=== PATIENT | female | born 1965 ===

== ENCOUNTER 2017-01-31 10:07 | Inpatient (IN) | payer BC, MEDICAID ==
[2017-01-31 10:07] VITALS: BMI 30.1
--- NOTE | 2017-01-31 11:53 | C.PDOC ---
History Of Present Illness 51 y/o female, with history of DM, referred to the ER by PMD for evaluation of worsening cellulitis to abdominal wound. Patient reports she was prescribed Keflex and Bactrim by Dr. Espinosa last week, which she has been taking, without improvement She reports pain and swelling to area of wound (left lower abdomen) . Denies fever, chills, nausea, vomiting, diarrhea, rash, or other associated symptoms. Time Seen by Provider: 01/31/17 11:15 Chief Complaint (Nursing): Abnormal Skin Integrity History Per: Patient History/Exam Limitations: no limitations Onset/Duration Of Symptoms: Days Current Symptoms Are (Timing): Worse Location Of Injury: Left: Abdomen, Anterior: Abdomen Quality Of Symptoms: Painful, Swollen, Draining Recent travel outside of the [place]: No Past Medical History Reviewed: Historical Data, Nursing Documentation, Vital Signs Vital Signs: Last Vital Signs Temp 97.7 F 01/31/17 10:19 Pulse 88 01/31/17 16:29 Resp 18 01/31/17 16:29 BP 117/78 01/31/17 16:29 Pulse Ox 100 01/31/17 16:29 - Medical History PMH: Arthritis, Asthma, COPD, Diabetes, Gastritis, HTN, Hypercholesterolemia, Migraine Surgical History: Carotid Endarterectomy - [facility] Procedures DERMAL REGENERATIVE GRAFT (06/17/14) DETACHMENT AT LEFT 2ND TOE, HIGH, OPEN APPROACH (11/24/15) DILATION OF 2 COR ART WITH DRUG-ELUT INTRALUM, PERC APPROACH (02/03/15) EXCIS DEBRIDE OF WOUND, INFECT, OR BURN (03/09/14) FLUOROSCOPY OF MULT COR ART USING L OSM CONTRAST (02/03/15) FLUOROSCOPY OF RIGHT AND LEFT HEART USING L OSM CONTRAST (02/03/15) LOC EXC LES METATAR/TAR (06/17/14) MEASURE OF CARDIAC SAMPL & PRESSURE, L HEART, PERC APPROACH (02/03/15) NONEXCIS DEBRID OF WOUND, INFECT, OR BURN (06/28/14) OTHER SKIN & SUBQ I D (03/09/14) TOE AMPUTATION (06/28/14) VACCINATION NEC (06/28/14) Family History: States: Unknown Family Hx - Social History Hx Tobacco Use: No Hx Alcohol Use: No Hx Substance Use: No - Immunization History Hx Tetanus Toxoid Vaccination: No Hx Influenza Vaccination: No Hx Pneumococcal Vaccination: No Review Of Systems Except As Marked, All Systems Reviewed And Found Negative. Constitutional: Negative for: Fever, Chills Cardiovascular: Negative for: Chest Pain Respiratory: Negative for: Cough, Shortness of Breath, Wheezing Gastrointestinal: Negative for: Nausea, Vomiting, Abdominal Pain Skin: Positive for: Lesions (left lower abdomen) Physical Exam - Physical Exam Appears: Non-toxic, No Acute Distress Skin: Warm, Dry, Other (induratied, ulcerative wound with yellow exudate, + erythema to left lower abdomen, 3.0 cm. ) Head: Atraumatic, Normacephalic Oral Mucosa: Moist Chest: Symmetrical Cardiovascular: Rhythm Regular Respiratory: Normal Breath Sounds, No Rales, No Rhonchi, No Wheezing Gastrointestinal/Abdominal: Soft, No Tenderness, No Guarding, No Rebound, Other (see skin exam) Back: Normal Inspection Extremity: Normal ROM, Capillary Refill (< 2 sec. ) Neurological/Psych: Oriented x3, Normal Speech, Normal Cognition ED Course And Treatment - Laboratory Results Result Diagrams: 01/31/17 13:24 01/31/17 13:24 O2 Sat by Pulse Oximetry: 99 Progress Note: Labs, wound culture ordered. Treated with IV fluids and Vancomycin IV. Patient found to have UTI. Zosyn IV was added to the treatment regimen. Case was d/w Hospitalist who accepted patient to [facility]. Disposition - Disposition Disposition: HOSPITALIZED Disposition Time: 15:21 Condition: FAIR - Clinical Impression Clinical Impression: Abdominal wall cellulitis, UTI (urinary tract infection) Decision To Admit - Pt Status Changed To: Hospital Disposition Of: Inpatient - Admit Certification Admit to Inpatient:: After my assessment, the patient will require hospitalization for at least two midnights. This is because of the severity of symptoms shown, intensity of services needed, and/or the medical risk in this patient being treated as an outpatient. - InPatient: Physician Admission Certification: I certify that this patient requires 2 or more midnights of care for the following reason:: Pt will need more than 2 days of IV antibiotics - . Bed Request Type: Regular Admitting Physician: Zoie Mcdonald Patient Diagnosis: Abdominal wall cellulitis, UTI (urinary tract infection)
[2017-01-31] MEDS ORDERED: Sodium Chloride 0.9% 1,000 ML IV STA (11:54)
[2017-01-31] MEDS ORDERED: Vancomycin 1 GM 1 GM/250 ML BAG IV STA (12:00)
[2017-01-31] MEDS ORDERED: Vancomycin 1 GM 1 GM/250 ML BAG IVPB ONE (12:10)
[2017-01-31 13:28] LABS: BASO % 0.3 % (0.0-2.0); EOS % 0.3 % (0.0-4.0); HEMATOCRIT 38.3 % (34.0-47.0); LYMPH # 1.3 K/uL (1.0-4.3); LYMPH % 28.1 % (20.0-40.0); MEAN CELL VOLUME 79.4 fL (81.0-99.0); MEAN CORPUSCULAR HEMOGLOBIN 26.5 pg (27.0-31.0); MEAN CORPUSCULAR HGB CONC 33.3 g/dL (33.0-37.0); MEAN PLATELET VOLUME 8.9 fL (7.2-11.7); MONO # 0.3 K/uL (0.0-0.8); MONO % 6.3 % (0.0-10.0); NRBC % 0.1 % (0.0-2.0); WHITE BLOOD COUNT 4.6 K/uL (4.8-10.8)
[2017-01-31 13:36] LABS: CHLORIDE 98 mmol/L (98-107); POTASSIUM 3.8 mmol/L (3.6-5.2); SODIUM 132 mmol/L (132-148)
[2017-01-31 13:38] LABS: GFR AFRICAN-AMERICAN > 60
[2017-01-31 13:39] LABS: ALKALINE PHOSPHATASE 93 U/L (38-126); ALT/SGPT 31 U/L (9-52); AST/SGOT 26 U/L (14-36); BILIRUBIN,TOTAL 0.7 mg/dL (0.2-1.3); BLOOD UREA NITROGEN 13 mg/dL (7-17); CARBON DIOXIDE 22 mmol/L (22-30); GLUCOSE,RANDOM 187 mg/dL (65-105); TOTAL PROTEIN 8.3 g/dL (6.3-8.3)
[2017-01-31 13:40] LABS: ALB/GLOB RATIO 0.8 (1.0-2.1); CALCIUM 8.9 mg/dl (8.6-10.4)
[2017-01-31 14:01] LABS: RBC URINE 6 /hpf (0-3); URINE BACTERIA RARE (<OCC); URINE BILIRUBIN NEGATIVE (NEGATIVE); URINE COLOR Yellow (YELLOW); URINE GLUCOSE (UA) 1+ mg/dL (Normal); URINE KETONE NEGATIVE (NEGATIVE); URINE LEUKOCYTE ESTERASE 2+ Leu/uL (Negative); URINE PROTEIN 1+ mg/dL (NEGATIVE); URINE UROBILINOGEN NORMAL mg/dL (0.2-1.0); WBC URINE 63 /hpf (0-5)
[2017-01-31 14:08] LABS: URINE BLOOD 1+ (NEGATIVE)
[2017-01-31] MEDS ORDERED: Piperacillin/Tazobact 3.375 gm 100 ML IV STA (15:17)
[2017-01-31] MEDS ORDERED: Piperacillin/Tazobact 3.375 gm 100 ML IVPB ONE (15:40)
[2017-01-31] MEDS ORDERED: Glucagon Recombinant 1 mg Inj IM PRN (17:37)
[2017-01-31] MEDS ORDERED: Dextrose 50% SYRINGE Inj (50 ml) IVP PRN (17:37)
--- NOTE | 2017-01-31 17:45 | CP.PCM.PN ---
Objective - Vital Signs/Intake and Output Vital Signs (last 24 hours): Temp Pulse Resp BP Pulse Ox 97.7 F 88 18 117/78 100 01/31/17 10:19 01/31/17 16:29 01/31/17 16:29 01/31/17 16:29 01/31/17 16:29 - Medications Medications: Current Medications Acetaminophen (Tylenol 325mg Tab) 650 mg PO Q6 PRN PRN Reason: Pain, moderate (4-7) Dextrose (Dextrose 50% Inj) 0 ml IVP .STAT PRN; Protocol PRN Reason: Hypoglycemia Protocol Dextrose (Glutose 15) 0 gm PO .ONCE PRN; Protocol PRN Reason: Hypoglycemia Protocol Glucagon (Glucagen Diagnostic Kit) 0 mg IM .STAT PRN; Protocol PRN Reason: Hypoglycemia Protocol Piperacillin Sod/Tazobactam (Sod 3.375 gm/ Sodium Chloride) 100 mls @ 200 mls/ hr IVPB Q8H SIMONA Vancomycin/Sodium Chloride (Vancocin) 1 gm in 200 mls @ 166.7 mls/hr IVPB Q24H SIMONA Stop: 02/06/17 12:01 Dextrose (Dextrose 5% In Water 1000 Ml) 1,000 mls @ 0 mls/hr IV .Q0M PRN; Protocol; Per Protocol PRN Reason: Hypoglycemia Protocol Sodium Chloride (Sodium Chloride 0.9%) 1,000 mls @ 100 mls/hr IV .Q10H SIMONA Ondansetron HCl (Zofran Inj) 4 mg IVP Q6 PRN PRN Reason: Nausea/Vomiting - Labs Labs: 01/31/17 13:24 01/31/17 13:24 PT 10.6 SECONDS (9.7-12.2) 01/31/17 13:24 INR 1.0 01/31/17 13:24 APTT 28 SECONDS (21-34) 01/31/17 13:24
--- NOTE | 2017-01-31 17:48 | CP.PCM.HP ---
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 Espinosa. Pt saw her PMD on 01/26/2017 for a abscess on her left lower abdomen that started on 01/24/2017. Before seeing her PMD on 01/26, patient had a ball that popped on its own. Pt stated it then started to drain. Pt was started on Bactrim 800mg and Keflex 500mg by her PMD. Pt saw her PMD today 01/31/2017 and was referred to the ED because the antibiotics were not working. Pt stated that she was cleaning the wound with hydrogen peroxide daily. Pt complains of a burning pain at the sight. The abscess is 6cm x 1cm x 2mm. The abscess is draining and has an erythematous base. Pt stated she had once episode of vomiting this morning. Pt denies SOB, chest pain, fever, chills, diarrhea, cough, rhinorrhea. Pt also complains of increase headache, urinary frequency, dysuria, and odor in her urine. Pt denies hematuria. PMH:Diabetes, HTN, Hypercholesterolemia, asthma, gastritis, migraine SHx: Toe amputations 2015 Carotid endartectomy 2014 Dermal regenerative graft 205 Fluoroscopy of coronary artery 2015 Fluroscopy of left and right heart 2014 Fam HX: Mother with cancer-unknown Grandmother diabetes Social HX: Denies tobacco, alcohol, and illicit drug use Unemployed Lives with and son No recent travel No sick contacts Present on Admission - Present on Admission Any Indicators Present on Admission: No History of DVT/PE: No History of Uncontrolled Diabetes: Yes Urinary Catheter: No Decubitus Ulcer Present: No Past Patient History - Infectious Disease Hx of Infectious Diseases: None - Tetanus Immunizations Tetanus Immunization: Unknown - Past Medical History & Family History Past Medical History?: Yes - Past Social History Smoking Status: Never Smoked - CARDIAC Hx Hypercholesterolemia: Yes Hx Hypertension: Yes - PULMONARY Hx Asthma: Yes Hx Chronic Obstructive Pulmonary Disease (COPD): Yes - NEUROLOGICAL Hx Migraine: Yes - HEENT Hx HEENT Problems: No - RENAL Hx Chronic Kidney Disease: No - ENDOCRINE/METABOLIC Hx Endocrine Disorders: Yes Hx Diabetes Mellitus Type 2: Yes - HEMATOLOGICAL/ONCOLOGICAL Other/Comment: Family members have a history of cancer and HIV. - INTEGUMENTARY Hx Cellulitis: ( ) - MUSCULOSKELETAL/RHEUMATOLOGICAL Hx Arthritis: Yes - GASTROINTESTINAL Hx Gastritis: Yes - GENITOURINARY/GYNECOLOGICAL Hx Genitourinary Disorders: No - PSYCHIATRIC Hx Substance Use: No - SURGICAL HISTORY Hx Carotid Endarterectomy: Yes - ANESTHESIA Hx Anesthesia: Yes Hx Anesthesia Reactions: No Hx Malignant Hyperthermia: No Meds Allergies/Adverse Reactions: Allergies Allergy/AdvReac Type Severity Reaction Status Date / Time No Known Allergies Allergy Verified 04/07/16 11:14 Physical Exam - Constitutional Appears: Non-toxic, No Acute Distress - Head Exam Head Exam: NORMAL INSPECTION - Eye Exam Eye Exam: EOMI, Normal appearance - ENT Exam ENT Exam: Mucous Membranes Moist, Normal Exam - Neck Exam Neck exam: Positive for: Full Rom - Respiratory Exam Respiratory Exam: Clear to Auscultation Bilateral, NORMAL BREATHING PATTERN. absent: Accessory Muscle Use, Respiratory Distress - Cardiovascular Exam Cardiovascular Exam: REGULAR RHYTHM, +S1. absent: Bradycardia, Tachycardia - GI/Abdominal Exam GI & Abdominal Exam: Soft. absent: Tenderness - Extremities Exam Extremities exam: Positive for: full ROM, normal inspection. Negative for: pedal edema - Back Exam Back exam: FULL ROM, NORMAL INSPECTION. absent: CVA tenderness (L), CVA tenderness (R) - Neurological Exam Neurological exam: Alert, Normal Gait, Oriented x3 - Psychiatric Exam Psychiatric exam: Normal Affect, Normal Mood - Skin Skin Exam: Warm Additional comments: left lower abdomen has area of 1cm height x 5cm width 2mm depth induration, no fluctuance appreciated, necrotic tissue overlaying center of skin lesion. Results - Vital Signs Recent Vital Signs: Last Vital Signs Temp 97.7 F 01/31/17 10:19 Pulse 88 01/31/17 16:29 Resp 18 01/31/17 16:29 BP 117/78 01/31/17 16:29 Pulse Ox 100 01/31/17 16:29 - Labs Result Diagrams: 01/31/17 13:24 01/31/17 13:24 Labs: Laboratory Results - last 24 hr 01/31/17 01/31/17 01/31/17 13:24 13:24 13:24 WBC 4.6 L RBC 4.82 Hgb 12.8 Hct 38.3 MCV 79.4 L D MCH 26.5 L MCHC 33.3 RDW 14.0 Plt Count 189 MPV 8.9 Neut % (Auto) 65.0 Lymph % (Auto) 28.1 [place] % (Auto) 6.3 Eos % (Auto) 0.3 Baso % (Auto) 0.3 Neut # 3.0 Lymph # 1.3 [place] # 0.3 Eos # 0.0 Baso # 0.0 PT 10.6 INR 1.0 APTT 28 Sodium 132 Potassium 3.8 Chloride 98 Carbon Dioxide 22 Anion Gap 15 BUN 13 Creatinine 0.5 L Est GFR ( Amer) > 60 Est GFR (Non-Af Amer) > 60 Random Glucose 187 H Calcium 8.9 Total Bilirubin 0.7 AST 26 ALT 31 Alkaline Phosphatase 93 Total Protein 8.3 Albumin 3.8 Globulin 4.5 H Albumin/Globulin Ratio 0.8 L Urine Color Urine Clarity Urine pH Ur Specific [place] Urine Protein Urine Glucose (UA) Urine Ketones Urine Blood Urine Nitrate Urine Bilirubin Urine Urobilinogen Ur Leukocyte Esterase Urine WBC (Auto) Urine RBC (Auto) Ur Squamous Epith Cells Urine Bacteria Urine HCG, Qual 01/31/17 13:37 WBC RBC Hgb Hct MCV MCH MCHC RDW Plt Count MPV Neut % (Auto) Lymph % (Auto) [place] % (Auto) Eos % (Auto) Baso % (Auto) Neut # Lymph # [place] # Eos # Baso # PT INR APTT Sodium Potassium Chloride Carbon Dioxide Anion Gap BUN Creatinine Est GFR ( Amer) Est GFR (Non-Af Amer) Random Glucose Calcium Total Bilirubin AST ALT Alkaline Phosphatase Total Protein Albumin Globulin Albumin/Globulin Ratio Urine Color Yellow Urine Clarity Hazy Urine pH 5.0 Ur Specific [place] 1.027 Urine Protein 1+ H Urine Glucose (UA) 1+ Urine Ketones Negative Urine Blood 1+ H Urine Nitrate Negative Urine Bilirubin Negative Urine Urobilinogen Normal Ur Leukocyte Esterase 2+ H Urine WBC (Auto) 63 H Urine RBC (Auto) 6 H Ur Squamous Epith Cells 11 H Urine Bacteria Rare Urine HCG, Qual Negative Assessment & Plan - Assessment and Plan (Free Text) Assessment: Abscess/cellulitis, necrotic tissue overlaying center of site of erythema CT abdomen/pelvis with IV contrast follow up 10/9 Vancomycin 1 gm IVPB QD Zosyn 3.375 Q8H monitor CBC Fungal infection of abdominal fold nystatin powder BID PRN to affected areas Diabetes Insulin 8 units Levemir 20 units QHS Albuterol 1 puff PRN ACHS Prophylaxis DVT: SCDs, Clopidogrel 7mg POQD GI: Protonix Tricia DO Dawson PGY1 - Date & Time Date: 01/31/17 Time: 18:12 <Zoie Mcdonald V - Last Filed: 01/31/17 21:55> Results - Vital Signs Recent Vital Signs: Last Vital Signs Temp 97.7 F 01/31/17 10:19 Pulse 88 01/31/17 18:14 Resp 16 01/31/17 18:14 BP 112/77 01/31/17 18:14 Pulse Ox 98 01/31/17 18:14 - Labs Result Diagrams: 01/31/17 13:24 01/31/17 13:24 Labs: Laboratory Results - last 24 hr 01/31/17 01/31/17 01/31/17 13:24 13:24 13:24 WBC 4.6 L RBC 4.82 Hgb 12.8 Hct 38.3 MCV 79.4 L D MCH 26.5 L MCHC 33.3 RDW 14.0 Plt Count 189 MPV 8.9 Neut % (Auto) 65.0 Lymph % (Auto) 28.1 [place] % (Auto) 6.3 Eos % (Auto) 0.3 Baso % (Auto) 0.3 Neut # 3.0 Lymph # 1.3 [place] # 0.3 Eos # 0.0 Baso # 0.0 PT 10.6 INR 1.0 APTT 28 Sodium 132 Potassium 3.8 Chloride 98 Carbon Dioxide 22 Anion Gap 15 BUN 13 Creatinine 0.5 L Est GFR ( Amer) > 60 Est GFR (Non-Af Amer) > 60 Random Glucose 187 H Calcium 8.9 Total Bilirubin 0.7 AST 26 ALT 31 Alkaline Phosphatase 93 Total Protein 8.3 Albumin 3.8 Globulin 4.5 H Albumin/Globulin Ratio 0.8 L Urine Color Urine Clarity Urine pH Ur Specific [place] Urine Protein Urine Glucose (UA) Urine Ketones Urine Blood Urine Nitrate Urine Bilirubin Urine Urobilinogen Ur Leukocyte Esterase Urine WBC (Auto) Urine RBC (Auto) Ur Squamous Epith Cells Urine Bacteria Urine HCG, Qual 01/31/17 13:37 WBC RBC Hgb Hct MCV MCH MCHC RDW Plt Count MPV Neut % (Auto) Lymph % (Auto) [place] % (Auto) Eos % (Auto) Baso % (Auto) Neut # Lymph # [place] # Eos # Baso # PT INR APTT Sodium Potassium Chloride Carbon Dioxide Anion Gap BUN Creatinine Est GFR ( Amer) Est GFR (Non-Af Amer) Random Glucose Calcium Total Bilirubin AST ALT Alkaline Phosphatase Total Protein Albumin Globulin Albumin/Globulin Ratio Urine Color Yellow Urine Clarity Hazy Urine pH 5.0 Ur Specific [place] 1.027 Urine Protein 1+ H Urine Glucose (UA) 1+ Urine Ketones Negative Urine Blood 1+ H Urine Nitrate Negative Urine Bilirubin Negative Urine Urobilinogen Normal Ur Leukocyte Esterase 2+ H Urine WBC (Auto) 63 H Urine RBC (Auto) 6 H Ur Squamous Epith Cells 11 H Urine Bacteria Rare Urine HCG, Qual Negative Attending/Attestation - Attestation I have personally seen and examined this patient.: Yes I have fully participated in the care of the patient.: Yes I have reviewed all pertinent clinical information: Yes Notes (Text): Patient seen, examined with day-time resident in [facility] ED on [address] . Patient seen by PMD approximately on 01/24/17, prescribed Bactrim and Keflex. Patient completed antibiotic however, rash over abdomen did not improve. Patient reported drainage from the site, wherein she used hydrogen peroxide and pencillin cream to treat. Patient was seen by PMD today and directed to the Emergency Room. Patient is also symptomatic for urinary tract infection, reporting dysuria. Patient started on empiric IV antibiotic therapy. Patient has extensive past medical history including diabetes, toe amputations over left foot (2nd, 3rd, and 5 toe), hypecholestrolemia, s/p cartoid endarectomies, asthma (sparingly uses nebulizer), gastritis, and migraines. Note specific finding (clarification in resident physical exam) Abdomen: erythema over intrigenous fold, left lower abdomen has area of 1cm height x 5cm width 2mm depth induration, fluctuance appreciated, no drainage, yellow covering Extremity: toe amputations over left foot (2nd, 3rd, and 5 toe); healed, clean , dry intact; right foot intact Assessment/Plan 1) Abscess/cellulitis, necrotic tissue overlaying center of site of erythema * Infectious Disease (Dr. Retana) f/u recommendations * General surgery (Dr. Allen) f/u recommendations * possible OR for I&D per surgery note * CT abdomen/pelvis with PO and IV contrast given overlying cellulitis over abdomen * Given Zosyn and Vancomycin in the ED * Start Zosyn 3.375 IVPB Q 8 hours * Start Vancomycin 1 gram IVPB Qdaily * Wound culture from site ordered 2) Fungal infection of abdominal fold * nystatin powder BID PRN to affected areas 3) Diabetes, uncontrolled * Regular insulin sliding scale subq * Give 1/2 Levemir 10 units QHS tonight * Januvia 100mg PO daily * Hypoglycemic protocol * [id number], lipid panel in AM 4) Hypercholestrolemia; History of Cartoid Artery Disease s/p endartectomy * Held Plavix; ordered for platelet function test * Lipid panel in the AM * Crestor 40mg POqHS 5) Urinary Tract Infection; Dysuria * UA abnormal * Pending urine culture * Patient is on Zosyn to cover empiric treatment for UTI 6) History of Asthma * Patient is not in acute asthma exacerbation * Portable chest xray ordered * Duonebs PRN shortness of breathe 7) Prophylaxis * DVT: SCDs b/l; held chemical anticoagulation for possible I&D in OR, pending EKG and chest xray for baseline for medical optimization * GI: Protonix 40mg IV q daily * Florastor 250mg PO bid * NS 100cc/hr
[2017-01-31] MEDS ORDERED: Albuterol 0.083% Inhal Sol (2.5 mg/3 mL) UD INH PRN (17:51)
[2017-01-31] MEDS ORDERED: Naproxen 275 mg Tab PO SCH ×2 (18:00→19:15)
[2017-01-31] MEDS: Sodium Chloride 0.9% 1,000 ML IV SCH (18:40)
[2017-01-31] MEDS: Nystatin 100,000 Units/gm Topical Pow(15 gm) TOP SCH (18:50)
--- NOTE | 2017-01-31 21:13 | CP.PCM.CON ---
<Alvin Crowder - Last Filed: 01/31/17 21:28> History of Present Illness - History of Present Illness History of Present Illness: Surgery: Dr. Allen CC: Abd wall abscess HPI: 51F w. PMH of DM, HTN, HLD, COPD, CAD presents to hospital w. abd wall abscess/cellulitis. Pt states that she noticed a small bump on her abd wall on 01/24. She states that it popped and white fluid was draining. She did not notice any odor. She states that it did not improve, prompting her to go to PMD who perscribed her bactrim and keflex. Depsite abx, she states that there was no improvement in the abscess, and that it actually worsened which led to her coming to ED. She denies SHARMA/blurred vision, no CP/palpitations, no SOB/cough, no F/C, no change in appetite, no N/V/D, she denies weakness and fatigue. 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, C sectionx3, CEA Meds: mar reviewed NKDA SOcial: No ETOH/tobacco/drugs Fhx: non-contributory Review of Systems - Review of Systems All systems: reviewed and no additional remarkable complaints except (HPI) Past Patient History - Infectious Disease Hx of Infectious Diseases: None - Tetanus Immunizations Tetanus Immunization: Unknown - Past Medical History & Family History Past Medical History?: Yes - Past Social History Smoking Status: Never Smoked - CARDIAC Hx Cardiac Disorders: Yes Hx Hypercholesterolemia: Yes Hx Hypertension: Yes - PULMONARY Hx Respiratory Disorders: Yes Hx Asthma: Yes Hx Chronic Obstructive Pulmonary Disease (COPD): Yes - NEUROLOGICAL Hx Neurological Disorder: Yes Hx Migraine: Yes - HEENT Hx HEENT Problems: No - RENAL Hx Chronic Kidney Disease: No - ENDOCRINE/METABOLIC Hx Endocrine Disorders: Yes Hx Diabetes Mellitus Type 2: Yes - HEMATOLOGICAL/ONCOLOGICAL Hx Blood Disorders: No Other/Comment: Family members have a history of cancer and HIV. - INTEGUMENTARY Hx Dermatological Problems: No Hx Cellulitis: ( ) - MUSCULOSKELETAL/RHEUMATOLOGICAL Hx Musculoskeletal Disorders: Yes Hx Arthritis: Yes Hx Falls: No - GASTROINTESTINAL Hx Gastrointestinal Disorders: Yes Hx Gastritis: Yes - GENITOURINARY/GYNECOLOGICAL Hx Genitourinary Disorders: No - PSYCHIATRIC Hx Psychophysiologic Disorder: No Hx Substance Use: No - SURGICAL HISTORY Hx Surgeries: Yes Hx Carotid Endarterectomy: Yes - ANESTHESIA Hx Anesthesia: Yes Hx Anesthesia Reactions: No Hx Malignant Hyperthermia: No Has any member of the family had a problem w/ anesthesia?: No Meds Allergies/Adverse Reactions: Allergies Allergy/AdvReac Type Severity Reaction Status Date / Time No Known Allergies Allergy Verified 04/07/16 11:14 - Medications Medications: Current Medications Acetaminophen (Tylenol 325mg Tab) 650 mg PO Q6 PRN PRN Reason: Pain, moderate (4-7) Albuterol Sulfate (Albuterol 0.083% Inhal Yuli (2.5 Mg/3 Ml) Ud) 2.5 mg INH RQ6 PRN PRN Reason: Shortness of Breath Citalopram Hydrobromide (Celexa) 10 mg PO DAILY [facility] Last Admin: 01/31/17 18:50 Dose: 10 mg Clopidogrel Bisulfate (Plavix) 75 mg PO DAILY [facility] Last Admin: 01/31/17 19:24 Dose: 75 mg Dextrose (Dextrose 50% Inj) 0 ml IVP .STAT PRN; Protocol PRN Reason: Hypoglycemia Protocol Dextrose (Glutose 15) 0 gm PO .ONCE PRN; Protocol PRN Reason: Hypoglycemia Protocol Famotidine (Pepcid) 20 mg PO BID [facility] Last Admin: 01/31/17 19:09 Dose: 20 mg Glucagon (Glucagen Diagnostic Kit) 0 mg IM .STAT PRN; Protocol PRN Reason: Hypoglycemia Protocol Piperacillin Sod/Tazobactam (Sod 3.375 gm/ Sodium Chloride) 100 mls @ 200 mls/ hr IVPB Q8H [facility] Vancomycin/Sodium Chloride (Vancocin) 1 gm in 200 mls @ 166.7 mls/hr IVPB Q24H [facility] Stop: 02/06/17 12:01 Dextrose (Dextrose 5% In Water 1000 Ml) 1,000 mls @ 0 mls/hr IV .Q0M PRN; Protocol; Per Protocol PRN Reason: Hypoglycemia Protocol Sodium Chloride (Sodium Chloride 0.9%) 1,000 mls @ 100 mls/hr IV .Q10H [facility] Last Admin: 01/31/17 18:40 Dose: 100 mls/hr Insulin Detemir (Levemir) 20 unit SC HS [facility] Insulin Human Regular (Novolin R) 0 unit SC ACHS [facility] PRN Reason: Protocol Naproxen (Anaprox) 275 mg PO BID [facility] Last Admin: 01/31/17 19:17 Dose: 275 mg Nystatin (Nystop Topical Powder) 1 gm TOP BID [facility] Last Admin: 01/31/17 18:50 Dose: 1 applic Ondansetron HCl (Zofran Inj) 4 mg IVP Q6 PRN PRN Reason: Nausea/Vomiting Phenazopyridine HCl (Pyridium) 200 mg PO TIDPC [facility] Last Admin: 01/31/17 18:50 Dose: 200 mg Rosuvastatin Calcium (Crestor) 40 mg PO HS [facility] Sitagliptin Phosphate (Januvia) 100 mg PO DAILY [facility] Physical Exam - Constitutional Appears: Non-toxic, No Acute Distress - Head Exam Head Exam: ATRAUMATIC, NORMOCEPHALIC - Eye Exam Eye Exam: EOMI. absent: Scleral icterus - ENT Exam ENT Exam: Mucous Membranes Moist, Normal External Ear Exam - Neck Exam Neck exam: Positive for: Full Rom - Respiratory Exam Respiratory Exam: NORMAL BREATHING PATTERN. absent: Accessory Muscle Use, Respiratory Distress - GI/Abdominal Exam GI & Abdominal Exam: Soft. absent: Distended, Firm, Guarding, Rebound, Rigid, Tenderness - Extremities Exam Extremities exam: Negative for: calf tenderness, pedal edema - Neurological Exam Neurological exam: Alert, Oriented x3 - Skin Additional comments: L lower abd, 6x2cm superficial multiloculated abscess with thick purulent drainage, no odor, mildly tender to palpation. Results - Vital Signs Recent Vital Signs: Last Vital Signs Temp 97.7 F 01/31/17 10:19 Pulse 88 01/31/17 18:14 Resp 16 01/31/17 18:14 BP 112/77 01/31/17 18:14 Pulse Ox 98 01/31/17 18:14 - Labs Result Diagrams: 01/31/17 13:24 01/31/17 13:24 Labs: Laboratory Results - last 24 hr 01/31/17 01/31/17 01/31/17 13:24 13:24 13:24 WBC 4.6 L RBC 4.82 Hgb 12.8 Hct 38.3 MCV 79.4 L D MCH 26.5 L MCHC 33.3 RDW 14.0 Plt Count 189 MPV 8.9 Neut % (Auto) 65.0 Lymph % (Auto) 28.1 [place] % (Auto) 6.3 Eos % (Auto) 0.3 Baso % (Auto) 0.3 Neut # 3.0 Lymph # 1.3 [place] # 0.3 Eos # 0.0 Baso # 0.0 PT 10.6 INR 1.0 APTT 28 Sodium 132 Potassium 3.8 Chloride 98 Carbon Dioxide 22 Anion Gap 15 BUN 13 Creatinine 0.5 L Est GFR ( Amer) > 60 Est GFR (Non-Af Amer) > 60 Random Glucose 187 H Calcium 8.9 Total Bilirubin 0.7 AST 26 ALT 31 Alkaline Phosphatase 93 Total Protein 8.3 Albumin 3.8 Globulin 4.5 H Albumin/Globulin Ratio 0.8 L Urine Color Urine Clarity Urine pH Ur Specific [place] Urine Protein Urine Glucose (UA) Urine Ketones Urine Blood Urine Nitrate Urine Bilirubin Urine Urobilinogen Ur Leukocyte Esterase Urine WBC (Auto) Urine RBC (Auto) Ur Squamous Epith Cells Urine Bacteria Urine HCG, Qual 01/31/17 13:37 WBC RBC Hgb Hct MCV MCH MCHC RDW Plt Count MPV Neut % (Auto) Lymph % (Auto) [place] % (Auto) Eos % (Auto) Baso % (Auto) Neut # Lymph # [place] # Eos # Baso # PT INR APTT Sodium Potassium Chloride Carbon Dioxide Anion Gap BUN Creatinine Est GFR ( Amer) Est GFR (Non-Af Amer) Random Glucose Calcium Total Bilirubin AST ALT Alkaline Phosphatase Total Protein Albumin Globulin Albumin/Globulin Ratio Urine Color Yellow Urine Clarity Hazy Urine pH 5.0 Ur Specific [place] 1.027 Urine Protein 1+ H Urine Glucose (UA) 1+ Urine Ketones Negative Urine Blood 1+ H Urine Nitrate Negative Urine Bilirubin Negative Urine Urobilinogen Normal Ur Leukocyte Esterase 2+ H Urine WBC (Auto) 63 H Urine RBC (Auto) 6 H Ur Squamous Epith Cells 11 H Urine Bacteria Rare Urine HCG, Qual Negative Assessment & Plan - Assessment and Plan (Free Text) Assessment: 51F w. abd wall abscess/cellulitis -NPO except meds -OR tomorrow for I&D / debridement -c/w abx -d/w attending Lakesha PGY3 <Sebastien Allen B - Last Filed: 02/01/17 17:15> Meds - Medications Medications: Current Medications Acetaminophen (Tylenol 325mg Tab) 650 mg PO Q6 PRN PRN Reason: Pain, moderate (4-7) Last Admin: 02/01/17 14:03 Dose: 650 mg Albuterol/Ipratropium (Duoneb 3 Mg/0.5 Mg (3 Ml) Ud) 3 ml INH RQ6 PRN PRN Reason: Shortness of Breath Citalopram Hydrobromide (Celexa) 10 mg PO DAILY [facility] Last Admin: 02/01/17 11:00 Dose: 10 mg Dextrose (Dextrose 50% Inj) 0 ml IVP .STAT PRN; Protocol PRN Reason: Hypoglycemia Protocol Dextrose (Glutose 15) 0 gm PO .ONCE PRN; Protocol PRN Reason: Hypoglycemia Protocol Glucagon (Glucagen Diagnostic Kit) 0 mg IM .STAT PRN; Protocol PRN Reason: Hypoglycemia Protocol Piperacillin Sod/Tazobactam (Sod 3.375 gm/ Sodium Chloride) 100 mls @ 200 mls/ hr IVPB Q8H [facility] Last Admin: 02/01/17 14:59 Dose: 200 mls/hr Vancomycin/Sodium Chloride (Vancocin) 1 gm in 200 mls @ 166.7 mls/hr IVPB Q24H [facility] Stop: 02/06/17 12:01 Last Admin: 02/01/17 13:30 Dose: 166.7 mls/hr Dextrose (Dextrose 5% In Water 1000 Ml) 1,000 mls @ 0 mls/hr IV .Q0M PRN; Protocol; Per Protocol PRN Reason: Hypoglycemia Protocol Sodium Chloride (Sodium Chloride 0.9%) 1,000 mls @ 100 mls/hr IV .Q10H [facility] Last Admin: 02/01/17 13:46 Dose: 100 mls/hr Insulin Detemir (Levemir) 10 unit SC HS [facility] Last Admin: 01/31/17 22:16 Dose: Not Given Insulin Human Regular (Novolin R) 0 unit SC ACHS [facility] PRN Reason: Protocol Last Admin: 02/01/17 12:30 Dose: 2 unit Nystatin (Nystop Topical Powder) 1 gm TOP BID [facility] Last Admin: 02/01/17 10:59 Dose: 1 applic Ondansetron HCl (Zofran Inj) 4 mg IVP Q6 PRN PRN Reason: Nausea/Vomiting Pantoprazole Sodium (Protonix Inj) 40 mg IVP DAILY [facility] Last Admin: 02/01/17 11:00 Dose: 40 mg Pneumococcal Polyvalent Vaccine (Pneumovax 23 Vaccine) 0.5 ml IM .ONCE ONE Stop: 02/03/17 10:01 Rosuvastatin Calcium (Crestor) 40 mg PO HS [facility] Last Admin: 01/31/17 22:12 Dose: 40 mg Saccharomyces Boulardii (Florastor) 250 mg PO BID [facility] Last Admin: 02/01/17 11:00 Dose: 250 mg Sitagliptin Phosphate (Januvia) 100 mg PO DAILY [facility] Last Admin: 02/01/17 11:00 Dose: 100 mg Results - Vital Signs Recent Vital Signs: Last Vital Signs Temp 97.8 F 02/01/17 15:00 Pulse 73 02/01/17 15:00 Resp 20 02/01/17 15:00 BP 120/76 02/01/17 15:00 Pulse Ox 96 02/01/17 15:00 - Labs Result Diagrams: 02/01/17 06:10 02/01/17 06:10 Labs: Laboratory Results - last 24 hr 01/31/17 01/31/17 01/31/17 02:56 21:55 22:35 WBC RBC Hgb Hct MCV MCH MCHC RDW Plt Count MPV Neut % (Auto) Lymph % (Auto) [place] % (Auto) Eos % (Auto) Baso % (Auto) Neut # Lymph # [place] # Eos # Baso # PT INR Plt Function Assay 153 Sodium Potassium Chloride Carbon Dioxide Anion Gap BUN Creatinine Est GFR ( Amer) Est GFR (Non-Af Amer) POC Glucose (mg/dL) 213 H Random Glucose Hemoglobin A1c Calcium Total Bilirubin AST ALT Alkaline Phosphatase Total Protein Albumin Globulin Albumin/Globulin Ratio Triglycerides Cholesterol LDL Cholesterol Direct HDL Cholesterol Urine HCG, Qual Negative 02/01/17 02/01/17 02/01/17 06:10 06:10 06:10 WBC 4.0 L RBC 4.47 Hgb 12.1 Hct 35.6 MCV 79.6 L MCH 27.1 MCHC 34.0 RDW 13.8 Plt Count 172 MPV 8.7 Neut % (Auto) 59.2 Lymph % (Auto) 32.6 [place] % (Auto) 7.2 Eos % (Auto) 0.9 Baso % (Auto) 0.1 Neut # 2.4 Lymph # 1.3 [place] # 0.3 Eos # 0.0 Baso # 0.0 PT 11.1 INR 1.0 Plt Function Assay Sodium 131 L Potassium 4.1 Chloride 101 Carbon Dioxide 22 Anion Gap 12 BUN 11 Creatinine 0.6 L Est GFR ( Amer) > 60 Est GFR (Non-Af Amer) > 60 POC Glucose (mg/dL) Random Glucose 199 H Hemoglobin A1c Calcium 8.5 L Total Bilirubin 0.7 AST 24 ALT 28 Alkaline Phosphatase 85 Total Protein 7.3 Albumin 3.3 L Globulin 4.0 H Albumin/Globulin Ratio 0.8 L Triglycerides 336 H D Cholesterol 196 LDL Cholesterol Direct 115 HDL Cholesterol 35 Urine HCG, Qual 02/01/17 02/01/17 02/01/17 06:10 07:09 11:10 WBC RBC Hgb Hct MCV MCH MCHC RDW Plt Count MPV Neut % (Auto) Lymph % (Auto) [place] % (Auto) Eos % (Auto) Baso % (Auto) Neut # Lymph # [place] # Eos # Baso # PT INR Plt Function Assay Sodium Potassium Chloride Carbon Dioxide Anion Gap BUN Creatinine Est GFR ( Amer) Est GFR (Non-Af Amer) POC Glucose (mg/dL) 218 H 194 H Random Glucose Hemoglobin A1c 12.7 H Calcium Total Bilirubin AST ALT Alkaline Phosphatase Total Protein Albumin Globulin Albumin/Globulin Ratio Triglycerides Cholesterol LDL Cholesterol Direct HDL Cholesterol Urine HCG, Qual 02/01/17 16:18 WBC RBC Hgb Hct MCV MCH MCHC RDW Plt Count MPV Neut % (Auto) Lymph % (Auto) [place] % (Auto) Eos % (Auto) Baso % (Auto) Neut # Lymph # [place] # Eos # Baso # PT INR Plt Function Assay Sodium Potassium Chloride Carbon Dioxide Anion Gap BUN Creatinine Est GFR ( Amer) Est GFR (Non-Af Amer) POC Glucose (mg/dL) 241 H Random Glucose Hemoglobin A1c Calcium Total Bilirubin AST ALT Alkaline Phosphatase Total Protein Albumin Globulin Albumin/Globulin Ratio Triglycerides Cholesterol LDL Cholesterol Direct HDL Cholesterol Urine HCG, Qual Attending/Attestation - Attestation I have personally seen and examined this patient.: Yes I have fully participated in the care of the patient.: Yes I have reviewed all pertinent clinical information: Yes Notes (Text): 02/01/17 17:14 Pt was seen and examined at bedside Agree with above note and assessment Pt with Abdominal wall necrosis and abscess Labs and radiology reviewed c/w IV antibiotics OR for Abdominal wall debridement and I & D consent NPO Plan d.w pt in detail Risk and benefit explained in detail.
[2017-01-31] MEDS ORDERED: Albuterol-Ipratrop 3 mg / 0.5 (3 ml) UD INH PRN (21:46)
[2017-01-31] MEDS ORDERED: Insulin Detemir 100 units/ml Vial (Levemir) SC SCH ×2 (22:00)
[2017-01-31] MEDS ORDERED: (Novolin R) Insulin Human Regular 100 units/ml vial SC SCH (22:00)
[2017-01-31] MEDS: Saccharomyces Boulardi 250 mg Cap PO SCH (22:12)
[2017-01-31] MEDS: (Novolin R) Insulin Human Regular 100 units/ml vial SC SCH (22:14)
[2017-01-31] MEDS: Insulin Detemir 100 units/ml Vial (Levemir) SC SCH (22:16)
[2017-01-31 22:41] LABS: PLT BASE COUNT 164 K/uL
[2017-01-31 22:42] LABS: FUNCTIONING PLTS 153 K/uL; PLT(ADP) 11 K/uL
[2017-01-31] MEDS: Piperacillin/Tazobact 3.375 GM in Sodium Chloride 100 ML IVPB SCH (23:54)
[2017-02-01] MEDS: Sodium Chloride 0.9% 1,000 ML IV SCH ×3 (05:34→22:05)
[2017-02-01 06:15] LABS: BASO % 0.1 % (0.0-2.0); EOS % 0.9 % (0.0-4.0); HEMATOCRIT 35.6 % (34.0-47.0); LYMPH # 1.3 K/uL (1.0-4.3); LYMPH % 32.6 % (20.0-40.0); MEAN CELL VOLUME 79.6 fL (81.0-99.0); MEAN CORPUSCULAR HEMOGLOBIN 27.1 pg (27.0-31.0); MEAN PLATELET VOLUME 8.7 fL (7.2-11.7); MONO # 0.3 K/uL (0.0-0.8); MONO % 7.2 % (0.0-10.0); NRBC % 0.1 % (0.0-2.0); RED CELL DISTRIBUTION WIDTH 13.8 % (11.5-14.5)
[2017-02-01 06:25] LABS: CHLORIDE 101 mmol/L (98-107)
[2017-02-01 06:26] LABS: POTASSIUM 4.1 mmol/L (3.6-5.2); SODIUM 131 mmol/L (132-148)
[2017-02-01 06:28] LABS: CARBON DIOXIDE 22 mmol/L (22-30); CHOLESTEROL 196 mg/dL (0-199); GFR AFRICAN-AMERICAN > 60
[2017-02-01 06:29] LABS: ALB/GLOB RATIO 0.8 (1.0-2.1); ALKALINE PHOSPHATASE 85 U/L (38-126); ALT/SGPT 28 U/L (9-52); AST/SGOT 24 U/L (14-36); BILIRUBIN,TOTAL 0.7 mg/dL (0.2-1.3); BLOOD UREA NITROGEN 11 mg/dL (7-17); CALCIUM 8.5 mg/dl (8.6-10.4); GLUCOSE,RANDOM 199 mg/dL (65-105); TOTAL PROTEIN 7.3 g/dL (6.3-8.3)
[2017-02-01] MEDS: Piperacillin/Tazobact 3.375 GM in Sodium Chloride 100 ML IVPB SCH ×2 (06:39→14:59)
[2017-02-01] MEDS: (Novolin R) Insulin Human Regular 100 units/ml vial SC SCH ×4 (07:56→21:42)
[2017-02-01] MEDS ORDERED: Bupivacaine-Epi 0.25%-1:200,000 PF Inj ONE (08:31)
[2017-02-01] MEDS ORDERED: Lidocaine 1% Inj (20ml) ONE (08:31)
[2017-02-01] MEDS ORDERED: Propofol 10 mg/ml Inj (20 ML) ONE (08:36)
[2017-02-01] MEDS ORDERED: Midazolam 2 MG/2 ML VIAL ONE ×2 (08:36→08:47)
--- NOTE | 2017-02-01 08:44 | RAD ---
HISTORY: baseline COMPARISON: Chest radiographs 11/27/2015. FINDINGS: LUNGS: Inspiratory volume appears slightly diminished with some crowding of the bronchovascular markings at both lung bases however there is no acute infiltrate appreciated bilaterally. PLEURA: No significant pleural effusion identified, no pneumothorax apparent. CARDIOVASCULAR: Normal. OSSEOUS STRUCTURES: No significant abnormalities. VISUALIZED UPPER ABDOMEN: Normal. OTHER FINDINGS: None. IMPRESSION: No acute infiltrate identified in the interval bilaterally. Diminished inspiratory volume.
[2017-02-01] MEDS ORDERED: HYDROmorphone 0.5 mg/0.5 ml ISec IVP PRN (09:02)
[2017-02-01] MEDS ORDERED: Lactated Ringer's 1,000 ML IV ONE ×2 (09:17)
--- NOTE | 2017-02-01 09:21 | PCM.SURG1 ---
Surgeon's Initial Post Op Note - Surgeon's Notes Surgeon: Dr. Allen Boat Engine Mechanic: Dr. Chandler PGY-3 Type of Anesthesia: IV Sedation, Local Pre-Operative Diagnosis: Abdominal wall cellulitis/abscess Operative Findings: see operative report Post-Operative Diagnosis: Abdominal wall cellulitis/abscess Operation Performed: Incision and drainage with debridement Specimen/Specimens Removed: debrided tissue Estimated Blood Loss: EBL {In ML}: 10 Blood Products Given: N/A Drains Used: No Drains Post-Op Condition: Good Date of Surgery/Procedure: 02/01/17 Time of Surgery/Procedure: 09:21
[2017-02-01] MEDS ORDERED: Iohexol 240 (50 ml) PO ONE (10:00)
--- NOTE | 2017-02-01 10:28 | CP.PCM.CON ---
History of Present Illness - History of Present Illness History of Present Illness: 51 y/o female, with history of DM, referred to the ER by PMD for evaluation of worsening cellulitis to abdominal wound. Patient reports she was prescribed Keflex and Bactrim by Dr. Espinosa last week, which she has been taking, without improvement She reports pain and swelling to area of wound (left lower abdomen) . Denies fever, chills, nausea, vomiting, diarrhea, rash, or other associated symptoms. - Medical History PMH: Arthritis, Asthma, COPD, Diabetes, Gastritis, HTN, Hypercholesterolemia, Migraine Surgical History: Carotid Endarterectomy Review of Systems - Constitutional Constitutional: As Per HPI - EENT Eyes: absent: As Per HPI, Blind Spots, Blurred Vision, Change in Vision, Decreased Night Vision, Diplopia, Discharge, Dry Eye, Exophthalmos, Floaters, Irritation, Itchy Eyes, Loss of Peripheral Vision, Pain, Photophobia, Requires Corrective Lenses, Sees Flashes, Spots in Vision, Tunnel Vision, Other Visual Disturbances, Loss of Vision, Other Ears: absent: As Per HPI, Decreased Hearing, Ear Discharge, Ear Pain, Tinnitus, Abnormal Hearing, Disequilibrium, Dizziness, Other Nose/Mouth/Throat: absent: As Per HPI, Epistaxis, Nasal Congestion, Nasal Discharge, Nasal Obstruction, Nasal Trauma, Nose Pain, Post Nasal Drip, Sinus Pain, Sinus Pressure, Bleeding Gums, Change in Voice, Dental Pain, Dry Mouth, Dysphagia, Halitosis, Hoarsness, Lip Swelling, Mouth Lesions, Mouth Pain, Odynophagia, Sore Throat, Throat Swelling, Tongue Swelling, Facial Pain, Neck Pain, Neck Mass, Other - Breasts Breasts: absent: As Per HPI, Change in Shape, Mass, Pain, Nipple Discharge, Nipple Inversion, Skin Changes, Swelling, Other - Cardiovascular Cardiovascular: absent: As Per HPI, Acrocyanosis, Chest Pain, Chest Pain at Rest , Chest Pain with Activity, Claudication, Diaphoresis, Dyspnea, Dyspnea on Exertion, Edema, Irregular Heart Rhythm, Pain Radiating to Arm/Neck/Jaw, Leg Edema, Leg Ulcers, Lightheadedness, Orthopnea, Palpitations, Paroxysmal Nocturnal Dyspnea, Pedal Edema, Radiating Pain, Rapid Heart Rate, Slow Heart Rate, Syncope, Other - Respiratory Respiratory: absent: As Per HPI, Cough, Dyspnea, Hemoptysis, Dyspnea on Exertion , Wheezing, Snoring, Stridor, Pain on Inspiration, Chest Congestion, Excessive Mucous Production, Change in Mucous Color, Pain with Coughing, Other - Gastrointestinal Gastrointestinal: absent: As Per HPI, Abdominal Pain, Belching, Bloating, Change in Bowel Habits, Change in Stool Character, Coffee Ground Emesis, Constipation, Cramping, Diarrhea, Dyspepsia, Dysphagia, Early Satiety, Excessive Flatus, Fecal Incontinence, Heartburn, Hematemesis, Hematochezia, Loose Stools, Melena, Nausea, Odynophagia, Temesmus, Vomiting, Other - Genitourinary Genitourinary: absent: As Per HPI, Change in Urinary Stream, Difficulty Urinating, Dysuria, Flank Pain, Hematuria, Pyuria, Nocturia, Urinary Incontinence, Urinary Frequency, Urinary Hesitance, Urinary Urgency, Voiding Freq/Small Amts, Freq UTI, Hx Renal/Bladder Calculi, Hx /Renal Surgery, Bladder Distension, Other - Reproductive: Female Reproductive:Female: absent: As Per HPI, Amenorrhea, Amenorrhea/ Control, Currently Menstual, Cycle <21 Days, Cycle >35 Days, Cycle Variable, Menses 1-7 Days, Menses >/= 8 Days, Menses Variable, Cycle > 4 Weeks Between, No Menses for 6 Months, Heavy Menses, Light Menses, Normal Menses, Spotting Between Cycles , S/P Hysterectomy, Menopausal, Post Menopausal, Premenarche, Abnormal Vaginal Bleeding, Dysmenorrhea, Dyspareunia, Genital Lesions, Genital Pruritis, Pelvic Pain, Prolapse Symptoms, Sexual Dysfunction, Vaginal Discharge, Vaginal Dryness , Vaginal Odor, Vaginal Pruritis, Other - Menstruation Menstruation: absent: As Per HPI, Amenorrhea, Amenorrhea/ Control, Currently Menstual, Cycle <21 Days, Cycle >35 Days, Cycle Variable, Menses 1-7 Days, Menses >/= 8 Days, Menses Variable, Cycle > 4 Weeks Between, No Menses for 6 Months, Heavy Menses, Light Menses, Normal Menses, Spotting Between Cycles , S/P Hysterectomy, Menopausal, Post Menopausal, Premenarche, Abnormal Vaginal Bleeding, Dysmenorrhea, Other - Musculoskeletal Musculoskeletal: absent: As Per HPI, Abnormal Gait, Arthralgias, Atrophy, Back Pain, Deformity, Joint Swelling, Limited Range of Motion, Loss of Height, Muscle Cramps, Muscle Weakness, Myalgias, Neck Pain, Numbness, Radiating Pain into Limb, Stiffness, Tingling, Other - Integumentary Integumentary: As Per HPI - Neurological Neurological: absent: As Per HPI, Abnormal Gait, Abnormal Hearing, Abnormal Movements, Abnormal Speech, Behavioral Changes, Burning Sensations, Confusion, Convulsions, Disequilibrium, Dizziness, Numbness, Focal Weakness, Frequent Falls , Headaches, Lack of Coordination, Loss of Vision, Memory Loss, Paresthesias, Radicular Pain, Restless Legs, Sensory Deficit, Syncope, Tingling, Tremor, Vertigo, Weakness, Other Visual Disturbances, Other - Psychiatric Psychiatric: absent: As Per HPI, Abnormal Sleep Pattern, Anhedonia, Anxiety, Auditory Hallucinations, Behavioral Changes, Change in Appetite, Change in Libido, Confusion, Depression, Difficulty Concentrating, Hallucinations, Homicidal Ideation, Hopelessness, Irritability, Memory Loss, Mood Swings, Panic Attacks, Paranoia, Suicidal Ideation, Visual Hallucinations, Tactile Hallucinations, Other - Endocrine Endocrine: absent: As Per HPI, Change in Body Appearance, Change in Libido, Cold Intolorance, Deepening of Voice, Excessive Sweating, Fatigue, Flushing, Heat Intolorance, Increase in Ring/Shoe/Hat Size, Palpitations, Polydipsia, Polyphagia, Polyuria, Other - Hematologic/Lymphatic Hematologic: absent: As Per HPI, Easy Bleeding, Easy Bruising, Lymphadenopathy, Other Past Patient History - Infectious Disease Hx of Infectious Diseases: None - Tetanus Immunizations Tetanus Immunization: Unknown - Past Medical History & Family History Past Medical History?: Yes - Past Social History Smoking Status: Never Smoked - CARDIAC Hx Cardiac Disorders: Yes Hx Hypercholesterolemia: Yes Hx Hypertension: Yes - PULMONARY Hx Respiratory Disorders: Yes Hx Asthma: Yes Hx Chronic Obstructive Pulmonary Disease (COPD): Yes - NEUROLOGICAL Hx Neurological Disorder: Yes Hx Migraine: Yes - HEENT Hx HEENT Problems: No - RENAL Hx Chronic Kidney Disease: No - ENDOCRINE/METABOLIC Hx Endocrine Disorders: Yes Hx Diabetes Mellitus Type 2: Yes - HEMATOLOGICAL/ONCOLOGICAL Hx Blood Disorders: No Other/Comment: Family members have a history of cancer and HIV. - INTEGUMENTARY Hx Dermatological Problems: No Hx Cellulitis: ( ) - MUSCULOSKELETAL/RHEUMATOLOGICAL Hx Musculoskeletal Disorders: Yes Hx Arthritis: Yes Hx Falls: No - GASTROINTESTINAL Hx Gastrointestinal Disorders: Yes Hx Gastritis: Yes - GENITOURINARY/GYNECOLOGICAL Hx Genitourinary Disorders: No - PSYCHIATRIC Hx Psychophysiologic Disorder: No Hx Substance Use: No - SURGICAL HISTORY Hx Surgeries: Yes Hx Carotid Endarterectomy: Yes - ANESTHESIA Hx Anesthesia: Yes Hx Anesthesia Reactions: No Hx Malignant Hyperthermia: No Has any member of the family had a problem w/ anesthesia?: No Meds Allergies/Adverse Reactions: Allergies Allergy/AdvReac Type Severity Reaction Status Date / Time No Known Allergies Allergy Verified 04/07/16 11:14 - Medications Medications: Current Medications Acetaminophen (Tylenol 325mg Tab) 650 mg PO Q6 PRN PRN Reason: Pain, moderate (4-7) Albuterol/Ipratropium (Duoneb 3 Mg/0.5 Mg (3 Ml) Ud) 3 ml INH RQ6 PRN PRN Reason: Shortness of Breath Citalopram Hydrobromide (Celexa) 10 mg PO DAILY [facility] Last Admin: 01/31/17 18:50 Dose: 10 mg Dextrose (Dextrose 50% Inj) 0 ml IVP .STAT PRN; Protocol PRN Reason: Hypoglycemia Protocol Dextrose (Glutose 15) 0 gm PO .ONCE PRN; Protocol PRN Reason: Hypoglycemia Protocol Glucagon (Glucagen Diagnostic Kit) 0 mg IM .STAT PRN; Protocol PRN Reason: Hypoglycemia Protocol Hydromorphone HCl (Dilaudid) 0.5 mg IVP Q5M PRN PRN Reason: Pain, moderate (4-7) Stop: 02/01/17 11:03 Piperacillin Sod/Tazobactam (Sod 3.375 gm/ Sodium Chloride) 100 mls @ 200 mls/ hr IVPB Q8H [facility] Last Admin: 02/01/17 06:39 Dose: 200 mls/hr Vancomycin/Sodium Chloride (Vancocin) 1 gm in 200 mls @ 166.7 mls/hr IVPB Q24H [facility] Stop: 02/06/17 12:01 Dextrose (Dextrose 5% In Water 1000 Ml) 1,000 mls @ 0 mls/hr IV .Q0M PRN; Protocol; Per Protocol PRN Reason: Hypoglycemia Protocol Sodium Chloride (Sodium Chloride 0.9%) 1,000 mls @ 100 mls/hr IV .Q10H [facility] Last Admin: 02/01/17 05:34 Dose: 100 mls/hr Insulin Detemir (Levemir) 10 unit [facility] Last Admin: 01/31/17 22:16 Dose: Not Given Insulin Human Regular (Novolin R) 0 unit SC [facility] PRN Reason: Protocol Last Admin: 02/01/17 07:56 Dose: Not Given Metoclopramide HCl (Reglan) 10 mg IVP ONCE PRN PRN Reason: Nausea/Vomiting Stop: 02/01/17 11:03 Nystatin (Nystop Topical Powder) 1 gm TOP BID [facility] Last Admin: 01/31/17 18:50 Dose: 1 applic Ondansetron HCl (Zofran Inj) 4 mg IVP Q6 PRN PRN Reason: Nausea/Vomiting Ondansetron HCl (Zofran Inj) 4 mg IVP ONCE PRN PRN Reason: Nausea/Vomiting Stop: 02/01/17 11:03 Pantoprazole Sodium (Protonix Inj) 40 mg IVP DAILY [facility] Pneumococcal Polyvalent Vaccine (Pneumovax 23 Vaccine) 0.5 ml IM .ONCE ONE Stop: 02/03/17 10:01 Rosuvastatin Calcium (Crestor) 40 mg PO [facility] Last Admin: 01/31/17 22:12 Dose: 40 mg Saccharomyces Boulardii (Florastor) 250 mg PO BID [facility] Last Admin: 01/31/17 22:12 Dose: 250 mg Sitagliptin Phosphate (Januvia) 100 mg PO DAILY [facility] Physical Exam - Constitutional Appears: Non-toxic, Chronically Ill - Head Exam Head Exam: NORMOCEPHALIC - Eye Exam Eye Exam: PERRL - ENT Exam ENT Exam: Mucous Membranes Dry, Normal External Ear Exam - Neck Exam Neck exam: Negative for: Lymphadenopathy - Respiratory Exam Respiratory Exam: Decreased Breath Sounds, Clear to Auscultation Bilateral - Cardiovascular Exam Cardiovascular Exam: Tachycardia, REGULAR RHYTHM, +S1, +S2 - GI/Abdominal Exam GI & Abdominal Exam: Diminished Bowel Sounds, Distended, Soft, Tenderness - Rectal Exam Rectal Exam: Deferred - Exam Exam: NORMAL INSPECTION - Extremities Exam Extremities exam: Negative for: pedal edema - Back Exam Back exam: absent: CVA tenderness (L), CVA tenderness (R) - Neurological Exam Neurological exam: Alert, CN II-XII Intact, Oriented x3, Reflexes Normal - Psychiatric Exam Psychiatric exam: Depressed - Skin Skin Exam: Dry Additional comments: + abd wall cellulitis Results - Vital Signs Recent Vital Signs: Last Vital Signs Temp 96.9 F L 02/01/17 09:17 Pulse 70 02/01/17 10:00 Resp 15 02/01/17 09:17 BP 114/63 02/01/17 10:00 Pulse Ox 100 02/01/17 10:00 - Labs Result Diagrams: 02/02/17 06:19 02/02/17 06:19 Labs: Laboratory Results - last 24 hr 01/31/17 01/31/17 01/31/17 02:56 13:24 13:24 WBC 4.6 L RBC 4.82 Hgb 12.8 Hct 38.3 MCV 79.4 L D MCH 26.5 L MCHC 33.3 RDW 14.0 Plt Count 189 MPV 8.9 Neut % (Auto) 65.0 Lymph % (Auto) 28.1 [place] % (Auto) 6.3 Eos % (Auto) 0.3 Baso % (Auto) 0.3 Neut # 3.0 Lymph # 1.3 [place] # 0.3 Eos # 0.0 Baso # 0.0 PT 10.6 INR 1.0 APTT 28 Plt Function Assay Sodium Potassium Chloride Carbon Dioxide Anion Gap BUN Creatinine Est GFR ( Amer) Est GFR (Non-Af Amer) POC Glucose (mg/dL) Random Glucose Calcium Total Bilirubin AST ALT Alkaline Phosphatase Total Protein Albumin Globulin Albumin/Globulin Ratio Triglycerides Cholesterol LDL Cholesterol Direct HDL Cholesterol Urine Color Urine Clarity Urine pH Ur Specific [place] Urine Protein Urine Glucose (UA) Urine Ketones Urine Blood Urine Nitrate Urine Bilirubin Urine Urobilinogen Ur Leukocyte Esterase Urine WBC (Auto) Urine RBC (Auto) Ur Squamous Epith Cells Urine Bacteria Urine HCG, Qual Negative 01/31/17 01/31/17 01/31/17 13:24 13:37 21:55 WBC RBC Hgb Hct MCV MCH MCHC RDW Plt Count MPV Neut % (Auto) Lymph % (Auto) [place] % (Auto) Eos % (Auto) Baso % (Auto) Neut # Lymph # [place] # Eos # Baso # PT INR APTT Plt Function Assay Sodium 132 Potassium 3.8 Chloride 98 Carbon Dioxide 22 Anion Gap 15 BUN 13 Creatinine 0.5 L Est GFR ( Amer) > 60 Est GFR (Non-Af Amer) > 60 POC Glucose (mg/dL) 213 H Random Glucose 187 H Calcium 8.9 Total Bilirubin 0.7 AST 26 ALT 31 Alkaline Phosphatase 93 Total Protein 8.3 Albumin 3.8 Globulin 4.5 H Albumin/Globulin Ratio 0.8 L Triglycerides Cholesterol LDL Cholesterol Direct HDL Cholesterol Urine Color Yellow Urine Clarity Hazy Urine pH 5.0 Ur Specific [place] 1.027 Urine Protein 1+ H Urine Glucose (UA) 1+ Urine Ketones Negative Urine Blood 1+ H Urine Nitrate Negative Urine Bilirubin Negative Urine Urobilinogen Normal Ur Leukocyte Esterase 2+ H Urine WBC (Auto) 63 H Urine RBC (Auto) 6 H Ur Squamous Epith Cells 11 H Urine Bacteria Rare Urine HCG, Qual Negative 01/31/17 02/01/17 02/01/17 22:35 06:10 06:10 WBC 4.0 L RBC 4.47 Hgb 12.1 Hct 35.6 MCV 79.6 L MCH 27.1 MCHC 34.0 RDW 13.8 Plt Count 172 MPV 8.7 Neut % (Auto) 59.2 Lymph % (Auto) 32.6 [place] % (Auto) 7.2 Eos % (Auto) 0.9 Baso % (Auto) 0.1 Neut # 2.4 Lymph # 1.3 [place] # 0.3 Eos # 0.0 Baso # 0.0 PT INR APTT Plt Function Assay 153 Sodium 131 L Potassium 4.1 Chloride 101 Carbon Dioxide 22 Anion Gap 12 BUN 11 Creatinine 0.6 L Est GFR ( Amer) > 60 Est GFR (Non-Af Amer) > 60 POC Glucose (mg/dL) Random Glucose 199 H Calcium 8.5 L Total Bilirubin 0.7 AST 24 ALT 28 Alkaline Phosphatase 85 Total Protein 7.3 Albumin 3.3 L Globulin 4.0 H Albumin/Globulin Ratio 0.8 L Triglycerides 336 H D Cholesterol 196 LDL Cholesterol Direct 115 HDL Cholesterol 35 Urine Color Urine Clarity Urine pH Ur Specific [place] Urine Protein Urine Glucose (UA) Urine Ketones Urine Blood Urine Nitrate Urine Bilirubin Urine Urobilinogen Ur Leukocyte Esterase Urine WBC (Auto) Urine RBC (Auto) Ur Squamous Epith Cells Urine Bacteria Urine HCG, Qual 02/01/17 02/01/17 06:10 07:09 WBC RBC Hgb Hct MCV MCH MCHC RDW Plt Count MPV Neut % (Auto) Lymph % (Auto) [place] % (Auto) Eos % (Auto) Baso % (Auto) Neut # Lymph # [place] # Eos # Baso # PT 11.1 INR 1.0 APTT Plt Function Assay Sodium Potassium Chloride Carbon Dioxide Anion Gap BUN Creatinine Est GFR ( Amer) Est GFR (Non-Af Amer) POC Glucose (mg/dL) 218 H Random Glucose Calcium Total Bilirubin AST ALT Alkaline Phosphatase Total Protein Albumin Globulin Albumin/Globulin Ratio Triglycerides Cholesterol LDL Cholesterol Direct HDL Cholesterol Urine Color Urine Clarity Urine pH Ur Specific [place] Urine Protein Urine Glucose (UA) Urine Ketones Urine Blood Urine Nitrate Urine Bilirubin Urine Urobilinogen Ur Leukocyte Esterase Urine WBC (Auto) Urine RBC (Auto) Ur Squamous Epith Cells Urine Bacteria Urine HCG, Qual Assessment & Plan (1) Abdominal wall cellulitis Status: Acute (2) UTI (urinary tract infection) Status: Acute (3) Abdominal pain Status: Acute - Assessment and Plan (Free Text) Assessment: abd wall cellulitis iv rx in progress for I and D
[2017-02-01] MEDS: Nystatin 100,000 Units/gm Topical Pow(15 gm) TOP SCH ×2 (10:59→18:00)
[2017-02-01] MEDS: Saccharomyces Boulardi 250 mg Cap PO SCH ×2 (11:00→17:40)
[2017-02-01] MEDS ORDERED: Iohexol 240 (50 ml) PO PRN (11:06)
[2017-02-01] MEDS: Vancomycin 1 gm/NS 200 ml 1 GM/200 ML BAG IVPB SCH (13:30)
[2017-02-01 16:39] VITALS: RESP 20
--- NOTE | 2017-02-01 21:11 | CP.PCM.PN ---
Addendum entered and electronically signed by Tricia Osman DO 02/01/17 21:17: Patient's hemoglobin is 12.7 will need better control of diabetes, diabetic emergency generator mechanic referral, nutrition consult Triglycerides 336, consider increasing statin dose, will follow up Original Note: <Tricia Osman - Last Filed: 02/01/17 21:14> Subjective - Date & Time of Evaluation Date of Evaluation: 02/01/17 Time of Evaluation: 21:09 - Subjective Subjective: Internal Medicine progress note for Dr. Mcdonald Patient seen and examined at bedside. No acute events overnight. Patient states surgery team came to see her and said she was going to the OR for incision and drainage or debridement. Patient said she wasn't given Nyastatin powder for the redness in the folds of abdomen. Patient said she's tolerating pain well. Patient denies fever, chills, nausea, vomiting, difficulties with bowel movement, vision changes. Patient topete no change in urination problem Objective - Vital Signs/Intake and Output Vital Signs (last 24 hours): Temp Pulse Resp BP Pulse Ox 97.8 F 73 20 120/76 96 02/01/17 15:00 02/01/17 15:00 02/01/17 15:00 02/01/17 15:00 02/01/17 15:00 Intake and Output: 02/01/17 02/02/17 18:59 06:59 Intake Total 1590 Balance 1590 - Medications Medications: Current Medications Acetaminophen (Tylenol 325mg Tab) 650 mg PO Q6 PRN PRN Reason: Pain, moderate (4-7) Last Admin: 02/01/17 14:03 Dose: 650 mg Albuterol/Ipratropium (Duoneb 3 Mg/0.5 Mg (3 Ml) Ud) 3 ml INH RQ6 PRN PRN Reason: Shortness of Breath Citalopram Hydrobromide (Celexa) 10 mg PO DAILY [facility] Last Admin: 02/01/17 11:00 Dose: 10 mg Dextrose (Dextrose 50% Inj) 0 ml IVP .STAT PRN; Protocol PRN Reason: Hypoglycemia Protocol Dextrose (Glutose 15) 0 gm PO .ONCE PRN; Protocol PRN Reason: Hypoglycemia Protocol Glucagon (Glucagen Diagnostic Kit) 0 mg IM .STAT PRN; Protocol PRN Reason: Hypoglycemia Protocol Piperacillin Sod/Tazobactam (Sod 3.375 gm/ Sodium Chloride) 100 mls @ 200 mls/ hr IVPB Q8H [facility] Last Admin: 02/01/17 14:59 Dose: 200 mls/hr Vancomycin/Sodium Chloride (Vancocin) 1 gm in 200 mls @ 166.7 mls/hr IVPB Q24H [facility] Stop: 02/06/17 12:01 Last Admin: 02/01/17 13:30 Dose: 166.7 mls/hr Dextrose (Dextrose 5% In Water 1000 Ml) 1,000 mls @ 0 mls/hr IV .Q0M PRN; Protocol; Per Protocol PRN Reason: Hypoglycemia Protocol Sodium Chloride (Sodium Chloride 0.9%) 1,000 mls @ 100 mls/hr IV .Q10H [facility] Last Admin: 02/01/17 13:46 Dose: 100 mls/hr Insulin Detemir (Levemir) 10 unit SC [facility] Last Admin: 01/31/17 22:16 Dose: Not Given Insulin Human Regular (Novolin R) 0 unit SC [facility] PRN Reason: Protocol Last Admin: 02/01/17 16:30 Dose: 4 unit Nystatin (Nystop Topical Powder) 1 gm TOP BID [facility] Last Admin: 02/01/17 10:59 Dose: 1 applic Ondansetron HCl (Zofran Inj) 4 mg IVP Q6 PRN PRN Reason: Nausea/Vomiting Pantoprazole Sodium (Protonix Inj) 40 mg IVP DAILY [facility] Last Admin: 02/01/17 11:00 Dose: 40 mg Pneumococcal Polyvalent Vaccine (Pneumovax 23 Vaccine) 0.5 ml IM .ONCE ONE Stop: 02/03/17 10:01 Rosuvastatin Calcium (Crestor) 40 mg PO HS [facility] Last Admin: 01/31/17 22:12 Dose: 40 mg Saccharomyces Boulardii (Florastor) 250 mg PO BID [facility] Last Admin: 02/01/17 17:40 Dose: 250 mg Sitagliptin Phosphate (Januvia) 100 mg PO DAILY [facility] Last Admin: 02/01/17 11:00 Dose: 100 mg - Labs Labs: 02/01/17 06:10 02/01/17 06:10 PT 11.1 SECONDS (9.7-12.2) 02/01/17 06:10 INR 1.0 02/01/17 06:10 APTT 28 SECONDS (21-34) 01/31/17 13:24 - Constitutional Appears: Non-toxic - Head Exam Head Exam: NORMAL INSPECTION - Eye Exam Eye Exam: EOMI - ENT Exam ENT Exam: Mucous Membranes Moist - Neck Exam Neck Exam: Full ROM - Respiratory Exam Respiratory Exam: Clear to Ausculation Bilateral, NORMAL BREATHING PATTERN. absent: Accessory Muscle Use, Respiratory Distress - Cardiovascular Exam Cardiovascular Exam: REGULAR RHYTHM, +S1, +S2 - GI/Abdominal Exam GI & Abdominal Exam: Soft, Tenderness (at area of abdomen with abscess) Additional comments: area of erythematous base, same margins as on admission - Extremities Exam Extremities Exam: Full ROM, Normal Inspection. absent: Pedal Edema - Neurological Exam Neurological Exam: Alert, Awake, Normal Gait, Oriented x3 - Psychiatric Exam Psychiatric exam: Normal Affect, Normal Mood - Skin Skin Exam: Dry, Intact, Normal Color, Warm Assessment and Plan - Assessment and Plan (Free Text) Assessment: Abscess/cellulitis, necrotic tissue overlaying center of site of erythema CT abdomen/pelvis with PO/IV contrast follow up 02/01 Surgery consult: Dr. Allen: Patient had debridement in OR today POD#0, patient tolerated the procedure well Vancomycin 1 gm IVPB QD Zosyn 3.375 Q8H f/u ID consult: Dr. Retana monitor CBC Fungal infection of abdominal fold nystatin powder BID PRN to affected areas Diabetes Insulin 8 units Levemir 20 units QHS Albuterol 1 puff PRN ACHS Prophylaxis DVT: SCDs, Clopidogrel 7mg POQD GI: Pepcid 20mg POQD Tricia Osman, DO PGY1 <Zoie Mcdonald V - Last Filed: 02/02/17 00:27> Objective - Vital Signs/Intake and Output Vital Signs (last 24 hours): Temp Pulse Resp BP Pulse Ox 97.8 F 73 20 120/76 96 02/01/17 15:00 02/01/17 15:00 02/01/17 15:00 02/01/17 15:00 02/01/17 15:00 Intake and Output: 02/01/17 02/02/17 18:59 06:59 Intake Total 1590 800 Balance 1590 800 - Medications Medications: Current Medications Acetaminophen (Tylenol 325mg Tab) 650 mg PO Q6 PRN PRN Reason: Pain, moderate (4-7) Last Admin: 02/01/17 14:03 Dose: 650 mg Albuterol/Ipratropium (Duoneb 3 Mg/0.5 Mg (3 Ml) Ud) 3 ml INH RQ6 PRN PRN Reason: Shortness of Breath Citalopram Hydrobromide (Celexa) 10 mg PO DAILY [facility] Last Admin: 02/01/17 11:00 Dose: 10 mg Dextrose (Dextrose 50% Inj) 0 ml IVP .STAT PRN; Protocol PRN Reason: Hypoglycemia Protocol Dextrose (Glutose 15) 0 gm PO .ONCE PRN; Protocol PRN Reason: Hypoglycemia Protocol Glucagon (Glucagen Diagnostic Kit) 0 mg IM .STAT PRN; Protocol PRN Reason: Hypoglycemia Protocol Piperacillin Sod/Tazobactam (Sod 3.375 gm/ Sodium Chloride) 100 mls @ 200 mls/ hr IVPB Q8H [facility] Last Admin: 02/02/17 00:03 Dose: 200 mls/hr Vancomycin/Sodium Chloride (Vancocin) 1 gm in 200 mls @ 166.7 mls/hr IVPB Q24H [facility] Stop: 02/06/17 12:01 Last Admin: 02/01/17 13:30 Dose: 166.7 mls/hr Dextrose (Dextrose 5% In Water 1000 Ml) 1,000 mls @ 0 mls/hr IV .Q0M PRN; Protocol; Per Protocol PRN Reason: Hypoglycemia Protocol Sodium Chloride (Sodium Chloride 0.9%) 1,000 mls @ 100 mls/hr IV .Q10H [facility] Last Admin: 02/01/17 22:05 Dose: 100 mls/hr Insulin Detemir (Levemir) 10 unit SC HS [facility] Last Admin: 02/01/17 21:44 Dose: 10 unit Insulin Human Regular (Novolin R) 0 unit SC [facility] PRN Reason: Protocol Last Admin: 02/01/17 21:42 Dose: Not Given Nystatin (Nystop Topical Powder) 1 gm TOP BID [facility] Last Admin: 02/01/17 18:00 Dose: 1 applic Ondansetron HCl (Zofran Inj) 4 mg IVP Q6 PRN PRN Reason: Nausea/Vomiting Pantoprazole Sodium (Protonix Inj) 40 mg IVP DAILY [facility] Last Admin: 02/01/17 11:00 Dose: 40 mg Pneumococcal Polyvalent Vaccine (Pneumovax 23 Vaccine) 0.5 ml IM .ONCE ONE Stop: 02/03/17 10:01 Rosuvastatin Calcium (Crestor) 40 mg PO HS [facility] Last Admin: 02/01/17 21:43 Dose: 40 mg Saccharomyces Boulardii (Florastor) 250 mg PO BID [facility] Last Admin: 02/01/17 17:40 Dose: 250 mg Sitagliptin Phosphate (Januvia) 100 mg PO DAILY [facility] Last Admin: 02/01/17 11:00 Dose: 100 mg - Labs Labs: 02/01/17 06:10 02/01/17 06:10 PT 11.1 SECONDS (9.7-12.2) 02/01/17 06:10 INR 1.0 02/01/17 06:10 APTT 28 SECONDS (21-34) 01/31/17 13:24 Attending/Attestation - Attestation I have personally seen and examined this patient.: Yes I have fully participated in the care of the patient.: Yes I have reviewed all pertinent clinical information, including history, physical exam and plan: Yes Notes (Text): This is late computer entry for 02/01/17. Patient seen, examined and case discussed with day-time resident. Patient seen status post debridement of abdominal abscess per general surgery. Patient seen with company at bedside. Patient reports she is feeling better. Patient did not complete CT abdomen PO and IV contrast prior to procedure in spite of time of order,unclear as to why, ordered for tomorrow since patient is post-OR Day 0 today Patient is an uncontrolled diabetic; a1c: 12.3. Underground Roof Bolter and inclusion paraeducator referral order. Patient's wound culture is pending final result. Blood cultures are negative. Post operative wound culture is pending. Patient is currently on IV empiric therapy until cultures result Assessment/Plan 1) Abscess/cellulitis, necrotic tissue overlaying center of site of erythema * Infectious Disease (Dr. Retana) f/u recommendations * General surgery (Dr. Allen) f/u recommendations * possible OR for I&D per surgery note * CT abdomen/pelvis with PO and IV contrast given overlying cellulitis over abdomen 02/02 * Given Zosyn and Vancomycin in the ED * Start Zosyn 3.375 IVPB Q 8 hours (active since 01/31/17) * Start Vancomycin 1 gram IVPB Qdaily (active since 01/31/17) * Wound culture from site ordered 2) Fungal infection of abdominal fold * nystatin powder BID PRN to affected areas 3) Diabetes, uncontrolled * Regular insulin sliding scale subq * Give 1/2 Levemir 10 units QHS tonight-->will resume 20 units (Home dose) * Januvia 100mg PO daily * Hypoglycemic protocol * hgba1c: 12.3, lipid panel: elevated TG; cholestrol; LDL: elevated; and low HDL * On max dose statin 4) Hypercholestrolemia; History of Cartoid Artery Disease s/p endartectomy * Held Plavix; ordered for platelet function test low * Crestor 40mg POqHS 5) Urinary Tract Infection; Dysuria * UA abnormal * Pending urine culture--was received * Patient is on Zosyn to cover empiric treatment for UTI 6) History of Asthma * Patient is not in acute asthma exacerbation * Portable chest xray ordered * Duonebs PRN shortness of breathe 7) Prophylaxis * DVT: SCDs b/l; held chemical anticoagulation for possible I&D in OR-->will resume anticoagulation tomorrow * GI: Protonix 40mg IV q daily * Florastor 250mg PO bid * NS 100cc/hr
--- NOTE | 2017-02-01 21:31 | OP ---
PROCEDURE DATE: 02/01/2017 PREOPERATIVE DIAGNOSES: 1. Abdominal wall abscess. 2. Abdominal wall necrosis. POSTOPERATIVE DIAGNOSES: 1. Abdominal wall abscess. 2. Abdominal wall necrosis. PROCEDURES: 1. Abdominal wall debridement, approximately 5 x 3 cm size. 2. Incision and drainage of abdominal wall abscess. SURGEON: Dr. Allen. ELECTRICIAN ELEVATOR MAINTENANCE: Maximo Chandler, PGY2, resident. TYPE OF ANESTHESIA: Local anesthesia plus sedation. ESTIMATED BLOOD LOSS: Around 10 mL. DRAINS: None. PATHOLOGY: The abdominal wall debrided tissue was sent for the pathology. Second is pus was sent for the culture and sensitivity. COMPLICATIONS: None. INTRAOPERATIVE FINDINGS: The patient had approximately 5 x 3 cm necrotic abdominal wall wound with underlying pus as well as thickened and edematous wall issue. DESCRIPTION OF PROCEDURE: On intraoperative steps, this 51-year-old female who was diagnosed with abdominal wall absences as well as a necrosis of the overlying skin and the patient was consented for incision and drainage of the abscess as well as abdominal wall debridement, brought to the OR, placed on the operating table. After induction of the sedation, the left lower abdomen was prepped and draped in usual sterile fashion. The elliptical incision was made surrounding the necrotic abdominal wall and the skin and subcutaneous was excised. The abscess cavity was entered and the pus was taken for culture and sensitivity. There was approximately 5 x 5 cm abscess cavity and now the surrounding wall tissue was debrided and wound was irrigated. The hemostasis was achieved. The wound was prepped with Surgicel as well as the gauze and dry sterile dressing was applied. The patient tolerated the procedure well. Count of the instruments and gauze was correct. There was no apparent complication. The patient was reversed from sedation and sent to the postanesthesia care unit in stable condition. Sebastien Allen MD
[2017-02-01] MEDS: Insulin Detemir 100 units/ml Vial (Levemir) SC SCH (21:44)
[2017-02-02] MEDS: Piperacillin/Tazobact 3.375 GM in Sodium Chloride 100 ML IVPB SCH ×4 (00:03→22:54)
[2017-02-02 06:42] LABS: BASO % 0.3 % (0.0-2.0); EOS % 0.5 % (0.0-4.0); HEMATOCRIT 36.7 % (34.0-47.0); LYMPH # 1.1 K/uL (1.0-4.3); LYMPH % 25.8 % (20.0-40.0); MEAN CELL VOLUME 79.5 fL (81.0-99.0); MEAN CORPUSCULAR HEMOGLOBIN 26.8 pg (27.0-31.0); MEAN CORPUSCULAR HGB CONC 33.7 g/dL (33.0-37.0); MONO # 0.2 K/uL (0.0-0.8); MONO % 5.6 % (0.0-10.0); NRBC % 0.4 % (0.0-2.0); WHITE BLOOD COUNT 4.3 K/uL (4.8-10.8)
[2017-02-02 06:49] LABS: CHLORIDE 99 mmol/L (98-107); POTASSIUM 4.5 mmol/L (3.6-5.2); SODIUM 133 mmol/L (132-148)
[2017-02-02 06:51] LABS: BILIRUBIN,TOTAL 0.7 mg/dL (0.2-1.3); GFR AFRICAN-AMERICAN > 60
[2017-02-02 06:52] LABS: ALB/GLOB RATIO 0.8 (1.0-2.1); ALKALINE PHOSPHATASE 71 U/L (38-126); ALT/SGPT 31 U/L (9-52); AST/SGOT 24 U/L (14-36); BLOOD UREA NITROGEN 13 mg/dL (7-17); CALCIUM 8.7 mg/dl (8.6-10.4); CARBON DIOXIDE 25 mmol/L (22-30); GLUCOSE,RANDOM 224 mg/dL (65-105); TOTAL PROTEIN 7.6 g/dL (6.3-8.3)
[2017-02-02] MEDS: (Novolin R) Insulin Human Regular 100 units/ml vial SC SCH ×4 (08:04→21:42)
[2017-02-02] MEDS: Saccharomyces Boulardi 250 mg Cap PO SCH ×2 (09:19→17:54)
[2017-02-02] MEDS: Sodium Chloride 0.9% 1,000 ML IV SCH ×3 (09:20→19:45)
[2017-02-02] MEDS: Nystatin 100,000 Units/gm Topical Pow(15 gm) TOP SCH ×2 (09:20→17:55)
[2017-02-02] MEDS ORDERED: Iohexol 240 (50 ml) PO ONE (09:45)
[2017-02-02] MEDS ORDERED: Iohexol 240 (50 ml) PO PRN (11:21)
[2017-02-02] MEDS: Magnesium Sulfate 1 gm in D5W 1 GM/100 ML BAG IVPB SCH ×3 (11:24→12:25)
[2017-02-02] MEDS: Vancomycin 1 gm/NS 200 ml 1 GM/200 ML BAG IVPB SCH (12:57)
--- NOTE | 2017-02-02 13:36 | CP.PCM.PN ---
<DawsonTricia - Last Filed: 02/02/17 16:03> Subjective - Date & Time of Evaluation Date of Evaluation: 02/02/17 Time of Evaluation: 13:36 - Subjective Subjective: Internal Medicine progress note for Dr. Mcdonald Patient seen and examined at bedside. No acute events overnight. Patient states she's feeling better. tolerating pain well and the itchiness under her abdominal fold is gone. Patient said she was given Nyastatin powder for the redness in the folds of abdomen. Patient denies fever, chills, nausea, vomiting , difficulties with bowel movement, vision changes. Patient topete no change in urination problem. Patient states her right arm looks swollen. Examined right arm at bedside, asked nurse to change the IV site and elevate patient's right arm. Objective - Vital Signs/Intake and Output Vital Signs (last 24 hours): Temp Pulse Resp BP Pulse Ox 97.7 F 73 20 117/78 97 02/02/17 07:42 02/02/17 07:42 02/02/17 07:42 02/02/17 07:42 02/02/17 07:42 Intake and Output: 02/02/17 02/02/17 06:59 18:59 Intake Total 800 Balance 800 - Medications Medications: Current Medications Acetaminophen (Tylenol 325mg Tab) 650 mg PO Q6 PRN PRN Reason: Pain, moderate (4-7) Last Admin: 02/01/17 14:03 Dose: 650 mg Albuterol/Ipratropium (Duoneb 3 Mg/0.5 Mg (3 Ml) Ud) 3 ml INH RQ6 PRN PRN Reason: Shortness of Breath Citalopram Hydrobromide (Celexa) 10 mg PO DAILY [facility] Last Admin: 02/02/17 09:19 Dose: 10 mg Dextrose (Dextrose 50% Inj) 0 ml IVP .STAT PRN; Protocol PRN Reason: Hypoglycemia Protocol Dextrose (Glutose 15) 0 gm PO .ONCE PRN; Protocol PRN Reason: Hypoglycemia Protocol Glucagon (Glucagen Diagnostic Kit) 0 mg IM .STAT PRN; Protocol PRN Reason: Hypoglycemia Protocol Piperacillin Sod/Tazobactam (Sod 3.375 gm/ Sodium Chloride) 100 mls @ 200 mls/ hr IVPB Q8H [facility] Last Admin: 02/02/17 06:38 Dose: 200 mls/hr Vancomycin/Sodium Chloride (Vancocin) 1 gm in 200 mls @ 166.7 mls/hr IVPB Q24H [facility] Stop: 02/06/17 12:01 Last Admin: 02/02/17 12:57 Dose: 166.7 mls/hr Dextrose (Dextrose 5% In Water 1000 Ml) 1,000 mls @ 0 mls/hr IV .Q0M PRN; Protocol; Per Protocol PRN Reason: Hypoglycemia Protocol Sodium Chloride (Sodium Chloride 0.9%) 1,000 mls @ 100 mls/hr IV .Q10H [facility] Last Admin: 02/02/17 09:20 Dose: 100 mls/hr Insulin Detemir (Levemir) 10 unit SC HS [facility] Last Admin: 02/01/17 21:44 Dose: 10 unit Insulin Human Regular (Novolin R) 0 unit SC ACHS [facility] PRN Reason: Protocol Last Admin: 02/02/17 12:23 Dose: 2 unit Iohexol (Omnipaque 240 (50 Ml)) 50 ml PO ONCE PRN Last Admin: 02/02/17 12:18 Dose: 50 ml Nystatin (Nystop Topical Powder) 1 gm TOP BID [facility] Last Admin: 02/02/17 09:20 Dose: Not Given Ondansetron HCl (Zofran Inj) 4 mg IVP Q6 PRN PRN Reason: Nausea/Vomiting Pantoprazole Sodium (Protonix Inj) 40 mg IVP DAILY [facility] Last Admin: 02/02/17 09:19 Dose: 40 mg Pneumococcal Polyvalent Vaccine (Pneumovax 23 Vaccine) 0.5 ml IM .ONCE ONE Stop: 02/03/17 10:01 Rosuvastatin Calcium (Crestor) 40 mg PO [facility] Last Admin: 02/01/17 21:43 Dose: 40 mg Saccharomyces Boulardii (Florastor) 250 mg PO BID [facility] Last Admin: 02/02/17 09:19 Dose: 250 mg Sitagliptin Phosphate (Januvia) 100 mg PO DAILY [facility] Last Admin: 02/02/17 09:19 Dose: 100 mg - Labs Labs: 02/02/17 06:19 02/02/17 06:19 PT 11.1 SECONDS (9.7-12.2) 02/01/17 06:10 INR 1.0 02/01/17 06:10 APTT 28 SECONDS (21-34) 01/31/17 13:24 - Constitutional Appears: Non-toxic - Head Exam Head Exam: NORMAL INSPECTION - Eye Exam Eye Exam: EOMI, Normal appearance - ENT Exam ENT Exam: Mucous Membranes Moist - Neck Exam Neck Exam: Full ROM. absent: Tenderness - Respiratory Exam Respiratory Exam: Clear to Ausculation Bilateral, NORMAL BREATHING PATTERN. absent: Accessory Muscle Use, Respiratory Distress - Cardiovascular Exam Cardiovascular Exam: REGULAR RHYTHM, +S1, +S2. absent: Bradycardia, Tachycardia - GI/Abdominal Exam GI & Abdominal Exam: Soft, Normal Bowel Sounds. absent: Tenderness - Extremities Exam Extremities Exam: Full ROM, Normal Inspection. absent: Pedal Edema Additional comments: Right arm forearm IV site is blown. - Neurological Exam Neurological Exam: Alert, Awake, Normal Gait, Oriented x3 - Psychiatric Exam Psychiatric exam: Normal Affect, Normal Mood - Skin Skin Exam: Dry, Intact, Normal Color, Warm Assessment and Plan - Assessment and Plan (Free Text) Assessment: Abscess/cellulitis, necrotic tissue overlaying center of site of erythema CT abdomen/pelvis with PO/IV contrast follow up 02/01 Surgery consult: Dr. Allen: Patient had debridement in OR today POD#0, patient tolerated the procedure well Vancomycin 1 gm IVPB QD Zosyn 3.375 Q8H f/u ID consult: Dr. Retana monitor CBC Diabetic manager retail referral Nutrition consult Hypokalemia 3.0 pre dialysis post-dialysis BMP check (follow up) Fungal infection of abdominal fold nystatin powder BID PRN to affected areas Diabetes Insulin 8 units hemoglobin A1c is 12.7 Levemir 20 units QHS Albuterol 1 puff PRN ACHS Triglycerides 336 patient instructed on high triglycerides and ideas to lower triglyceride and cholesterol levels will follow up Right arm forearm IV site is blown. asked nurse to change the IV site and elevate patient's arm. Monitor for pulses, capillary refill, all intact Prophylaxis DVT: SCDs, Clopidogrel 7mg POQD GI: Pepcid 20mg POQD Tricia Osman DO PGY1 <Zoie Mcdonald V - Last Filed: 02/03/17 07:20> Objective - Vital Signs/Intake and Output Vital Signs (last 24 hours): Temp Pulse Resp BP Pulse Ox 98.1 F 68 20 130/74 99 02/02/17 15:41 02/02/17 15:41 02/02/17 15:41 02/02/17 15:41 02/02/17 15:41 Intake and Output: 02/02/17 02/02/17 06:59 18:59 Intake Total 800 1310 Balance 800 1310 - Medications Medications: Current Medications Acetaminophen (Tylenol 325mg Tab) 650 mg PO Q6 PRN PRN Reason: Pain, moderate (4-7) Last Admin: 02/01/17 14:03 Dose: 650 mg Albuterol/Ipratropium (Duoneb 3 Mg/0.5 Mg (3 Ml) Ud) 3 ml INH RQ6 PRN PRN Reason: Shortness of Breath Citalopram Hydrobromide (Celexa) 10 mg PO DAILY [facility] Last Admin: 02/02/17 09:19 Dose: 10 mg Dextrose (Dextrose 50% Inj) 0 ml IVP .STAT PRN; Protocol PRN Reason: Hypoglycemia Protocol Dextrose (Glutose 15) 0 gm PO .ONCE PRN; Protocol PRN Reason: Hypoglycemia Protocol Glucagon (Glucagen Diagnostic Kit) 0 mg IM .STAT PRN; Protocol PRN Reason: Hypoglycemia Protocol Piperacillin Sod/Tazobactam (Sod 3.375 gm/ Sodium Chloride) 100 mls @ 200 mls/ hr IVPB Q8H [facility] Last Admin: 02/02/17 14:53 Dose: 200 mls/hr Vancomycin/Sodium Chloride (Vancocin) 1 gm in 200 mls @ 166.7 mls/hr IVPB Q24H [facility] Stop: 02/06/17 12:01 Last Admin: 02/02/17 12:57 Dose: 166.7 mls/hr Dextrose (Dextrose 5% In Water 1000 Ml) 1,000 mls @ 0 mls/hr IV .Q0M PRN; Protocol; Per Protocol PRN Reason: Hypoglycemia Protocol Sodium Chloride (Sodium Chloride 0.9%) 1,000 mls @ 100 mls/hr IV .Q10H [facility] Last Admin: 02/02/17 09:20 Dose: 100 mls/hr Insulin Detemir (Levemir) 20 unit SC HS [facility] Insulin Human Regular (Novolin R) 0 unit SC ACHS [facility] PRN Reason: Protocol Last Admin: 02/02/17 17:04 Dose: 2 unit Iohexol (Omnipaque 240 (50 Ml)) 50 ml PO ONCE PRN Last Admin: 02/02/17 12:18 Dose: 50 ml Nystatin (Nystop Topical Powder) 1 gm TOP BID [facility] Last Admin: 02/02/17 17:55 Dose: 1 applic Ondansetron HCl (Zofran Inj) 4 mg IVP Q6 PRN PRN Reason: Nausea/Vomiting Pantoprazole Sodium (Protonix Inj) 40 mg IVP DAILY [facility] Last Admin: 02/02/17 09:19 Dose: 40 mg Pneumococcal Polyvalent Vaccine (Pneumovax 23 Vaccine) 0.5 ml IM .ONCE ONE Stop: 02/03/17 10:01 Rosuvastatin Calcium (Crestor) 40 mg PO HS [facility] Last Admin: 02/01/17 21:43 Dose: 40 mg Saccharomyces Boulardii (Florastor) 250 mg PO BID [facility] Last Admin: 02/02/17 17:54 Dose: 250 mg Sitagliptin Phosphate (Januvia) 100 mg PO DAILY [facility] Last Admin: 02/02/17 09:19 Dose: 100 mg - Labs Labs: 02/02/17 06:19 02/02/17 06:19 PT 11.1 SECONDS (9.7-12.2) 02/01/17 06:10 INR 1.0 02/01/17 06:10 APTT 28 SECONDS (21-34) 01/31/17 13:24 Attending/Attestation - Attestation I have personally seen and examined this patient.: Yes I have fully participated in the care of the patient.: Yes I have reviewed all pertinent clinical information, including history, physical exam and plan: Yes Notes (Text): This is late computer entry for 02/02/17. Patient seen, examined and case discussed with day-time resident. Patient seen status post debridement POD 1 of abdominal abscess per general surgery. Patient reports she is feeling better. Patient completed CT abdomen PO and IV contrast today Patient is an uncontrolled diabetic; a1c: 12.3. Cyber Software Engineer and extension educator referral order. Patient's wound culture showing Enterococcous. Blood cultures are negative. Post operative wound culture is pending. Will continue antibiotic therapy. Will follow-up with surgery to determine when patient is stable from their standpoint for discharge planning Assessment/Plan 1) Abscess/cellulitis, necrotic tissue overlaying center of site of erythema * Infectious Disease (Dr. Retana)-->help appreciated * General surgery (Dr. Allen)-->help appreciated * CT abdomen/pelvis with PO and IV contrast given overlying cellulitis over abdomen 02/02 * Given Zosyn and Vancomycin in the ED * Start Zosyn 3.375 IVPB Q 8 hours (active since 01/31/17) * Start Vancomycin 1 gram IVPB Qdaily (active since 01/31/17) * Wound culture: enteroccous * Wound culture 2 post OR: pending * Blood cultures: negative 2) Fungal infection of abdominal fold * nystatin powder BID PRN to affected areas 3) Diabetes, uncontrolled * Regular insulin sliding scale subq * Give 1/2 Levemir 10 units QHS tonight-->will resume 20 units (Home dose) * Januvia 100mg PO daily * Hypoglycemic protocol * hgba1c: 12.3, lipid panel: elevated TG; cholestrol; LDL: elevated; and low HDL * On max dose statin 4) Hypercholestrolemia; History of Cartoid Artery Disease s/p endartectomy * Held Plavix; ordered for platelet function test low * Crestor 40mg POqHS 5) Urinary Tract Infection; Dysuria * UA abnormal * Pending urine culture--was received: no growth * Patient is on Zosyn to cover empiric treatment for UTI 6) History of Asthma * Patient is not in acute asthma exacerbation * Portable chest xray ordered * Duonebs PRN shortness of breathe 7) Prophylaxis * DVT: SCDs b/l; restart Heparin 5000 units subq8H * GI: Protonix 40mg IV q daily * Florastor 250mg PO bid * NS 100cc/hr
[2017-02-02] MEDS ORDERED: Iodixanol 320 MG/ML 100 ML BOTTLE IV ONE (14:16)
--- NOTE | 2017-02-02 15:09 | CT ---
PROCEDURE: CT Abdomen and Pelvis with oral and IV contrast. HISTORY: abdominal wall cellulitis; abscess COMPARISON: CT abdomen and pelvis with IV contrast performed 09/08/15 TECHNIQUE: Contiguous axial images of the abdomen and pelvis. Oral and IV contrast was administered. Coronal and Sagittal reformats generated and reviewed. Contrast dose: 100 mL Visipaque Radiation dose: Total exam DLP = 904.34 mGy-cm. This CT exam was performed using one or more of the following dose reduction techniques: Automated exposure control, adjustment of the mA and/or kV according to patient size, and/or use of iterative reconstruction technique. FINDINGS: LOWER THORAX: No visible consolidation, pleural effusion, or pneumothorax. LIVER: Hypoattenuation of the liver compatible with hepatic steatosis. Borderline hepatomegaly. GALLBLADDER AND BILE DUCTS: Cholelithiasis. PANCREAS: Unremarkable. SPLEEN: Unremarkable. ADRENALS: Unremarkable. KIDNEYS AND URETERS: The kidneys enhance symmetrically. No hydronephrosis or obstructing renal calculus. BLADDER: Mildly thick-walled urinary bladder. REPRODUCTIVE: Uterus is present. 2 cm probable right ovarian cyst. APPENDIX: The appendix appears within normal limits of caliber. No secondary signs of acute appendicitis. BOWEL: The stomach is nondistended. The bowel loops appear within normal limits of caliber without evidence of intestinal obstruction. PERITONEUM: No significant free fluid. No definite free air. LYMPH NODES: No bulky lymphadenopathy identified. VASCULATURE: No aortic aneurysm. BONES: Degenerative changes. OTHER FINDINGS: Large soft tissue defect involving the left lateral anterior abdominal wall. No associated focal fluid collections or abscess identified. IMPRESSION: Large soft tissue defect involving the left lateral anterior abdominal wall. No associated focal fluid collections or abscess identified. 2 cm probable right ovarian cyst. Hypoattenuation of the liver compatible with hepatic steatosis. Borderline hepatomegaly. Cholelithiasis. Mildly thick-walled urinary bladder may be exaggerated by under distension; correlate with urinalysis.
--- NOTE | 2017-02-02 15:14 | CP.PCM.PN ---
<Alvin Crowder - Last Filed: 02/02/17 15:11> Subjective - Date & Time of Evaluation Date of Evaluation: 02/02/17 Time of Evaluation: 15:11 - Subjective Subjective: Surgery: Dr. Allen Pt seen and examined. Resting comfortably in bed. Pain controlled. Pt states that abdomen feels better compared to yesterday. No F/C. Dressing and packing changed at bedside. Objective - Vital Signs/Intake and Output Vital Signs (last 24 hours): Temp Pulse Resp BP Pulse Ox 97.7 F 73 20 117/78 97 02/02/17 07:42 02/02/17 07:42 02/02/17 07:42 02/02/17 07:42 02/02/17 07:42 Intake and Output: 02/02/17 02/02/17 06:59 18:59 Intake Total 800 Balance 800 - Medications Medications: Current Medications Acetaminophen (Tylenol 325mg Tab) 650 mg PO Q6 PRN PRN Reason: Pain, moderate (4-7) Last Admin: 02/01/17 14:03 Dose: 650 mg Albuterol/Ipratropium (Duoneb 3 Mg/0.5 Mg (3 Ml) Ud) 3 ml INH RQ6 PRN PRN Reason: Shortness of Breath Citalopram Hydrobromide (Celexa) 10 mg PO DAILY [facility] Last Admin: 02/02/17 09:19 Dose: 10 mg Dextrose (Dextrose 50% Inj) 0 ml IVP .STAT PRN; Protocol PRN Reason: Hypoglycemia Protocol Dextrose (Glutose 15) 0 gm PO .ONCE PRN; Protocol PRN Reason: Hypoglycemia Protocol Glucagon (Glucagen Diagnostic Kit) 0 mg IM .STAT PRN; Protocol PRN Reason: Hypoglycemia Protocol Piperacillin Sod/Tazobactam (Sod 3.375 gm/ Sodium Chloride) 100 mls @ 200 mls/ hr IVPB Q8H [facility] Last Admin: 02/02/17 14:53 Dose: 200 mls/hr Vancomycin/Sodium Chloride (Vancocin) 1 gm in 200 mls @ 166.7 mls/hr IVPB Q24H [facility] Stop: 02/06/17 12:01 Last Admin: 02/02/17 12:57 Dose: 166.7 mls/hr Dextrose (Dextrose 5% In Water 1000 Ml) 1,000 mls @ 0 mls/hr IV .Q0M PRN; Protocol; Per Protocol PRN Reason: Hypoglycemia Protocol Sodium Chloride (Sodium Chloride 0.9%) 1,000 mls @ 100 mls/hr IV .Q10H [facility] Last Admin: 02/02/17 09:20 Dose: 100 mls/hr Insulin Detemir (Levemir) 10 unit SC [facility] Last Admin: 02/01/17 21:44 Dose: 10 unit Insulin Glargine (Lantus) 20 unit SC [facility] Insulin Human Regular (Novolin R) 0 unit SC [facility] PRN Reason: Protocol Last Admin: 02/02/17 12:23 Dose: 2 unit Iohexol (Omnipaque 240 (50 Ml)) 50 ml PO ONCE PRN Last Admin: 02/02/17 12:18 Dose: 50 ml Nystatin (Nystop Topical Powder) 1 gm TOP BID [facility] Last Admin: 02/02/17 09:20 Dose: Not Given Ondansetron HCl (Zofran Inj) 4 mg IVP Q6 PRN PRN Reason: Nausea/Vomiting Pantoprazole Sodium (Protonix Inj) 40 mg IVP DAILY [facility] Last Admin: 02/02/17 09:19 Dose: 40 mg Pneumococcal Polyvalent Vaccine (Pneumovax 23 Vaccine) 0.5 ml IM .ONCE ONE Stop: 02/03/17 10:01 Rosuvastatin Calcium (Crestor) 40 mg PO [facility] Last Admin: 02/01/17 21:43 Dose: 40 mg Saccharomyces Boulardii (Florastor) 250 mg PO BID [facility] Last Admin: 02/02/17 09:19 Dose: 250 mg Sitagliptin Phosphate (Januvia) 100 mg PO DAILY [facility] Last Admin: 02/02/17 09:19 Dose: 100 mg - Labs Labs: 02/02/17 06:19 02/02/17 06:19 PT 11.1 SECONDS (9.7-12.2) 02/01/17 06:10 INR 1.0 02/01/17 06:10 APTT 28 SECONDS (21-34) 01/31/17 13:24 - Constitutional Appears: Non-toxic, No Acute Distress - Head Exam Head Exam: ATRAUMATIC, NORMOCEPHALIC - Eye Exam Eye Exam: EOMI - ENT Exam ENT Exam: Mucous Membranes Moist - Respiratory Exam Respiratory Exam: NORMAL BREATHING PATTERN. absent: Accessory Muscle Use, Respiratory Distress - GI/Abdominal Exam GI & Abdominal Exam: Soft. absent: Distended, Firm, Guarding, Rigid, Tenderness Additional comments: L lower abd, 4x2cm wound, non-tender to palpation, no erythema, no fluctuance/ induration, no pus - Extremities Exam Extremities Exam: absent: Calf Tenderness, Pedal Edema - Neurological Exam Neurological Exam: Alert, Awake, Oriented x3 - Psychiatric Exam Psychiatric exam: Normal Affect, Normal Mood - Skin Skin Exam: Dry, Warm Assessment and Plan - Assessment and Plan (Free Text) Assessment: 51F w. abdominal wall abscess, s/p I&D and debridement, POD#1 -c/w IV abx -will change packing tomorrow -c/w pain management -will continue to follow -d/w attending Lakesha PGY3 <Sebastien Allen - Last Filed: 02/03/17 21:09> Objective - Vital Signs/Intake and Output Vital Signs (last 24 hours): Temp Pulse Resp BP Pulse Ox 97.8 F 70 20 117/75 97 02/03/17 08:14 02/03/17 08:14 02/03/17 08:14 02/03/17 08:14 02/03/17 08:14 Intake and Output: 02/03/17 02/04/17 18:59 06:59 Intake Total 540 Balance 540 - Labs Labs: 02/03/17 06:23 02/03/17 06:23 PT 11.1 SECONDS (9.7-12.2) 02/01/17 06:10 INR 1.0 02/01/17 06:10 APTT 28 SECONDS (21-34) 01/31/17 13:24 Attending/Attestation - Attestation I have personally seen and examined this patient.: Yes I have fully participated in the care of the patient.: Yes I have reviewed all pertinent clinical information, including history, physical exam and plan: Yes Notes (Text): 02/03/17 21:09 Pt was seen and examined at bedside Agree with above note and assessment Local Wound care c/w IV antibiotics Plan d.w pt in detail
[2017-02-02] MEDS ORDERED: Magnesium Sulfate 1 gm in D5W 1 GM/100 ML BAG IVPB ONE (16:01)
[2017-02-02] MEDS ORDERED: Insulin Detemir 100 units/ml Vial (Levemir) SC SCH (17:43)
--- NOTE | 2017-02-02 18:06 | CP.PCM.PN ---
Subjective - Date & Time of Evaluation Date of Evaluation: 02/02/17 Time of Evaluation: 08:00 - Subjective Subjective: events noted c/s wound + enterococcus Objective - Vital Signs/Intake and Output Vital Signs (last 24 hours): Temp Pulse Resp BP Pulse Ox 98.1 F 68 20 130/74 99 02/02/17 15:41 02/02/17 15:41 02/02/17 15:41 02/02/17 15:41 02/02/17 15:41 Intake and Output: 02/02/17 02/02/17 06:59 18:59 Intake Total 800 1310 Balance 800 1310 - Medications Medications: Current Medications Acetaminophen (Tylenol 325mg Tab) 650 mg PO Q6 PRN PRN Reason: Pain, moderate (4-7) Last Admin: 02/01/17 14:03 Dose: 650 mg Albuterol/Ipratropium (Duoneb 3 Mg/0.5 Mg (3 Ml) Ud) 3 ml INH RQ6 PRN PRN Reason: Shortness of Breath Citalopram Hydrobromide (Celexa) 10 mg PO DAILY [facility] Last Admin: 02/02/17 09:19 Dose: 10 mg Dextrose (Dextrose 50% Inj) 0 ml IVP .STAT PRN; Protocol PRN Reason: Hypoglycemia Protocol Dextrose (Glutose 15) 0 gm PO .ONCE PRN; Protocol PRN Reason: Hypoglycemia Protocol Glucagon (Glucagen Diagnostic Kit) 0 mg IM .STAT PRN; Protocol PRN Reason: Hypoglycemia Protocol Piperacillin Sod/Tazobactam (Sod 3.375 gm/ Sodium Chloride) 100 mls @ 200 mls/ hr IVPB Q8H [facility] Last Admin: 02/02/17 14:53 Dose: 200 mls/hr Vancomycin/Sodium Chloride (Vancocin) 1 gm in 200 mls @ 166.7 mls/hr IVPB Q24H [facility] Stop: 02/06/17 12:01 Last Admin: 02/02/17 12:57 Dose: 166.7 mls/hr Dextrose (Dextrose 5% In Water 1000 Ml) 1,000 mls @ 0 mls/hr IV .Q0M PRN; Protocol; Per Protocol PRN Reason: Hypoglycemia Protocol Sodium Chloride (Sodium Chloride 0.9%) 1,000 mls @ 100 mls/hr IV .Q10H [facility] Last Admin: 02/02/17 09:20 Dose: 100 mls/hr Insulin Detemir (Levemir) 20 unit SC [facility] Insulin Human Regular (Novolin R) 0 unit SC [facility] PRN Reason: Protocol Last Admin: 02/02/17 17:04 Dose: 2 unit Iohexol (Omnipaque 240 (50 Ml)) 50 ml PO ONCE PRN Last Admin: 02/02/17 12:18 Dose: 50 ml Nystatin (Nystop Topical Powder) 1 gm TOP BID [facility] Last Admin: 02/02/17 17:55 Dose: 1 applic Ondansetron HCl (Zofran Inj) 4 mg IVP Q6 PRN PRN Reason: Nausea/Vomiting Pantoprazole Sodium (Protonix Inj) 40 mg IVP DAILY [facility] Last Admin: 02/02/17 09:19 Dose: 40 mg Pneumococcal Polyvalent Vaccine (Pneumovax 23 Vaccine) 0.5 ml IM .ONCE ONE Stop: 02/03/17 10:01 Rosuvastatin Calcium (Crestor) 40 mg PO [facility] Last Admin: 02/01/17 21:43 Dose: 40 mg Saccharomyces Boulardii (Florastor) 250 mg PO BID [facility] Last Admin: 02/02/17 17:54 Dose: 250 mg Sitagliptin Phosphate (Januvia) 100 mg PO DAILY [facility] Last Admin: 02/02/17 09:19 Dose: 100 mg - Labs Labs: 02/02/17 06:19 02/02/17 06:19 PT 11.1 SECONDS (9.7-12.2) 02/01/17 06:10 INR 1.0 02/01/17 06:10 APTT 28 SECONDS (21-34) 01/31/17 13:24 - Constitutional Appears: Non-toxic, Chronically Ill - Head Exam Head Exam: NORMOCEPHALIC - Eye Exam Eye Exam: PERRL - ENT Exam ENT Exam: Mucous Membranes Dry - Neck Exam Neck Exam: absent: Lymphadenopathy - Respiratory Exam Respiratory Exam: Decreased Breath Sounds - Cardiovascular Exam Cardiovascular Exam: REGULAR RHYTHM - GI/Abdominal Exam GI & Abdominal Exam: Distended, Soft - Rectal Exam Rectal Exam: Deferred - Exam Exam: NORMAL INSPECTION - Extremities Exam Extremities Exam: absent: Pedal Edema - Back Exam Back Exam: absent: CVA tenderness (L), CVA tenderness (R) - Neurological Exam Neurological Exam: Alert, Awake, Oriented x3 Assessment and Plan (1) Abdominal wall cellulitis Status: Acute (2) UTI (urinary tract infection) Status: Acute (3) Abdominal pain Status: Acute
[2017-02-02] MEDS ORDERED: (Lantus) Insulin Glargine, Recombinant SC SCH (22:00)
--- NOTE | 2017-02-02 22:42 | CARD ---
APPROVED REPORT EKG Measurement Heart [id number] <Conclusion> Sinus rhythm with 1st degree AV block Possible Inferior infarct, age undetermined Possible Anterior infarct, age undetermined Abnormal ECG
[2017-02-03 01:25] VITALS: PULSE 70; TEMP 97.8
[2017-02-03 06:33] LABS: BASO % 0.2 % (0.0-2.0); EOS % 0.8 % (0.0-4.0); HEMATOCRIT 35.6 % (34.0-47.0); LYMPH # 1.2 K/uL (1.0-4.3); LYMPH % 27.3 % (20.0-40.0); MEAN CELL VOLUME 79.3 fL (81.0-99.0); MEAN CORPUSCULAR HEMOGLOBIN 26.7 pg (27.0-31.0); MEAN CORPUSCULAR HGB CONC 33.7 g/dL (33.0-37.0); MEAN PLATELET VOLUME 8.7 fL (7.2-11.7); MONO # 0.3 K/uL (0.0-0.8); MONO % 6.3 % (0.0-10.0); RED CELL DISTRIBUTION WIDTH 14.1 % (11.5-14.5); WHITE BLOOD COUNT 4.4 K/uL (4.8-10.8)
[2017-02-03 07:43] LABS: CHLORIDE 99 mmol/L (98-107); SODIUM 132 mmol/L (132-148)
[2017-02-03 07:44] LABS: POTASSIUM 4.4 mmol/L (3.6-5.2)
[2017-02-03 07:46] LABS: ALB/GLOB RATIO 0.9 (1.0-2.1); ALKALINE PHOSPHATASE 74 U/L (38-126); ALT/SGPT 24 U/L (9-52); AST/SGOT 22 U/L (14-36); BILIRUBIN,TOTAL 0.7 mg/dL (0.2-1.3); BLOOD UREA NITROGEN 13 mg/dL (7-17); CARBON DIOXIDE 23 mmol/L (22-30); GFR AFRICAN-AMERICAN > 60; GLUCOSE,RANDOM 194 mg/dL (65-105); TOTAL PROTEIN 7.4 g/dL (6.3-8.3)
[2017-02-03 07:47] LABS: CALCIUM 8.5 mg/dl (8.6-10.4)
[2017-02-03 08:15] VITALS: BP 117/75; O2SAT 97
[2017-02-03] MEDS: (Novolin R) Insulin Human Regular 100 units/ml vial SC SCH ×2 (08:20→12:06)
[2017-02-03] MEDS: Piperacillin/Tazobact 3.375 GM in Sodium Chloride 100 ML IVPB SCH (08:21)
[2017-02-03] MEDS: Saccharomyces Boulardi 250 mg Cap PO SCH (09:39)
[2017-02-03] MEDS: Nystatin 100,000 Units/gm Topical Pow(15 gm) TOP SCH (09:41)
[2017-02-03] MEDS: Sodium Chloride 0.9% 1,000 ML IV SCH (09:44)
--- NOTE | 2017-02-03 09:51 | CP.PCM.PN ---
Objective - Vital Signs/Intake and Output Vital Signs (last 24 hours): Temp Pulse Resp BP Pulse Ox 97.8 F 70 20 117/75 97 02/03/17 08:14 02/03/17 08:14 02/03/17 08:14 02/03/17 08:14 02/03/17 08:14 Intake and Output: 02/03/17 02/03/17 06:59 18:59 Intake Total 2350 Balance 2350 - Medications Medications: Current Medications Acetaminophen (Tylenol 325mg Tab) 650 mg PO Q6 PRN PRN Reason: Pain, moderate (4-7) Last Admin: 02/01/17 14:03 Dose: 650 mg Albuterol/Ipratropium (Duoneb 3 Mg/0.5 Mg (3 Ml) Ud) 3 ml INH RQ6 PRN PRN Reason: Shortness of Breath Citalopram Hydrobromide (Celexa) 10 mg PO DAILY [facility] Last Admin: 02/03/17 09:39 Dose: 10 mg Dextrose (Dextrose 50% Inj) 0 ml IVP .STAT PRN; Protocol PRN Reason: Hypoglycemia Protocol Dextrose (Glutose 15) 0 gm PO .ONCE PRN; Protocol PRN Reason: Hypoglycemia Protocol Glucagon (Glucagen Diagnostic Kit) 0 mg IM .STAT PRN; Protocol PRN Reason: Hypoglycemia Protocol Heparin Sodium (Porcine) (Heparin) 5,000 units SC Q8 [facility] Piperacillin Sod/Tazobactam (Sod 3.375 gm/ Sodium Chloride) 100 mls @ 200 mls/ hr IVPB Q8H [facility] Last Admin: 02/03/17 08:21 Dose: 200 mls/hr Vancomycin/Sodium Chloride (Vancocin) 1 gm in 200 mls @ 166.7 mls/hr IVPB Q24H [facility] Stop: 02/06/17 12:01 Last Admin: 02/02/17 12:57 Dose: 166.7 mls/hr Dextrose (Dextrose 5% In Water 1000 Ml) 1,000 mls @ 0 mls/hr IV .Q0M PRN; Protocol; Per Protocol PRN Reason: Hypoglycemia Protocol Sodium Chloride (Sodium Chloride 0.9%) 1,000 mls @ 100 mls/hr IV .Q10H [facility] Last Admin: 02/03/17 09:44 Dose: 100 mls/hr Insulin Detemir (Levemir) 20 unit SC [facility] Last Admin: 02/02/17 21:34 Dose: 20 unit Insulin Human Regular (Novolin R) 0 unit SC [facility] PRN Reason: Protocol Last Admin: 02/03/17 08:20 Dose: 2 unit Iohexol (Omnipaque 240 (50 Ml)) 50 ml PO ONCE PRN Last Admin: 02/02/17 12:18 Dose: 50 ml Nystatin (Nystop Topical Powder) 1 gm TOP BID [facility] Last Admin: 02/03/17 09:41 Dose: 1 applic Ondansetron HCl (Zofran Inj) 4 mg IVP Q6 PRN PRN Reason: Nausea/Vomiting Pantoprazole Sodium (Protonix Inj) 40 mg IVP DAILY [facility] Last Admin: 02/03/17 09:39 Dose: 40 mg Pneumococcal Polyvalent Vaccine (Pneumovax 23 Vaccine) 0.5 ml IM .ONCE ONE Stop: 02/03/17 10:01 Last Admin: 02/03/17 09:40 Dose: Not Given Rosuvastatin Calcium (Crestor) 40 mg PO [facility] Last Admin: 02/02/17 21:33 Dose: 40 mg Saccharomyces Boulardii (Florastor) 250 mg PO BID [facility] Last Admin: 02/03/17 09:39 Dose: 250 mg Sitagliptin Phosphate (Januvia) 100 mg PO DAILY [facility] Last Admin: 02/03/17 09:39 Dose: 100 mg - Labs Labs: 02/03/17 06:23 02/03/17 06:23 PT 11.1 SECONDS (9.7-12.2) 02/01/17 06:10 INR 1.0 02/01/17 06:10 APTT 28 SECONDS (21-34) 01/31/17 13:24 Assessment and Plan - Assessment and Plan (Free Text) Assessment: CT Abdomen/Pelvis
[2017-02-03] MEDS ORDERED: Influenza Vaccine 60 mcg/0.5 mL SYR (4YR UP) IM ONE (10:00)
[2017-02-03] MEDS ORDERED: Pneumococcal 23-Valent Vaccine IM ONE (10:00)
--- NOTE | 2017-02-03 11:34 | CP.PCM.PN ---
<Tricia Musa - Last Filed: 02/03/17 11:31> Subjective - Date & Time of Evaluation Date of Evaluation: 02/03/17 Time of Evaluation: 10:00 - Subjective Subjective: General Surgery Dr. Allen Pt S&E @bedside. NAEO. no complaints. denies F/C, N/V, D/C. tolerating diet. Objective - Vital Signs/Intake and Output Vital Signs (last 24 hours): Temp Pulse Resp BP Pulse Ox 97.8 F 70 20 117/75 97 02/03/17 08:14 02/03/17 08:14 02/03/17 08:14 02/03/17 08:14 02/03/17 08:14 Intake and Output: 02/03/17 02/03/17 06:59 18:59 Intake Total 2350 Balance 2350 - Medications Medications: Current Medications Acetaminophen (Tylenol 325mg Tab) 650 mg PO Q6 PRN PRN Reason: Pain, moderate (4-7) Last Admin: 02/01/17 14:03 Dose: 650 mg Albuterol/Ipratropium (Duoneb 3 Mg/0.5 Mg (3 Ml) Ud) 3 ml INH RQ6 PRN PRN Reason: Shortness of Breath Citalopram Hydrobromide (Celexa) 10 mg PO DAILY [facility] Last Admin: 02/03/17 09:39 Dose: 10 mg Dextrose (Dextrose 50% Inj) 0 ml IVP .STAT PRN; Protocol PRN Reason: Hypoglycemia Protocol Dextrose (Glutose 15) 0 gm PO .ONCE PRN; Protocol PRN Reason: Hypoglycemia Protocol Glucagon (Glucagen Diagnostic Kit) 0 mg IM .STAT PRN; Protocol PRN Reason: Hypoglycemia Protocol Heparin Sodium (Porcine) (Heparin) 5,000 units SC Q8 [facility] Piperacillin Sod/Tazobactam (Sod 3.375 gm/ Sodium Chloride) 100 mls @ 200 mls/ hr IVPB Q8H [facility] Last Admin: 02/03/17 08:21 Dose: 200 mls/hr Vancomycin/Sodium Chloride (Vancocin) 1 gm in 200 mls @ 166.7 mls/hr IVPB Q24H [facility] Stop: 02/06/17 12:01 Last Admin: 02/02/17 12:57 Dose: 166.7 mls/hr Dextrose (Dextrose 5% In Water 1000 Ml) 1,000 mls @ 0 mls/hr IV .Q0M PRN; Protocol; Per Protocol PRN Reason: Hypoglycemia Protocol Sodium Chloride (Sodium Chloride 0.9%) 1,000 mls @ 100 mls/hr IV .Q10H [facility] Last Admin: 02/03/17 09:44 Dose: 100 mls/hr Insulin Detemir (Levemir) 20 unit SC [facility] Last Admin: 02/02/17 21:34 Dose: 20 unit Insulin Human Regular (Novolin R) 0 unit SC [facility] PRN Reason: Protocol Last Admin: 02/03/17 08:20 Dose: 2 unit Iohexol (Omnipaque 240 (50 Ml)) 50 ml PO ONCE PRN Last Admin: 02/02/17 12:18 Dose: 50 ml Nystatin (Nystop Topical Powder) 1 gm TOP BID [facility] Last Admin: 02/03/17 09:41 Dose: 1 applic Ondansetron HCl (Zofran Inj) 4 mg IVP Q6 PRN PRN Reason: Nausea/Vomiting Pantoprazole Sodium (Protonix Inj) 40 mg IVP DAILY [facility] Last Admin: 02/03/17 09:39 Dose: 40 mg Rosuvastatin Calcium (Crestor) 40 mg PO HS [facility] Last Admin: 02/02/17 21:33 Dose: 40 mg Saccharomyces Boulardii (Florastor) 250 mg PO BID [facility] Last Admin: 02/03/17 09:39 Dose: 250 mg Sitagliptin Phosphate (Januvia) 100 mg PO DAILY [facility] Last Admin: 02/03/17 09:39 Dose: 100 mg - Labs Labs: 02/03/17 06:23 02/03/17 06:23 PT 11.1 SECONDS (9.7-12.2) 02/01/17 06:10 INR 1.0 02/01/17 06:10 APTT 28 SECONDS (21-34) 01/31/17 13:24 - Constitutional Appears: Non-toxic, No Acute Distress - Head Exam Head Exam: NORMAL INSPECTION - Eye Exam Eye Exam: Normal appearance - ENT Exam ENT Exam: Mucous Membranes Moist - Respiratory Exam Respiratory Exam: NORMAL BREATHING PATTERN. absent: Accessory Muscle Use, Respiratory Distress - Cardiovascular Exam Cardiovascular Exam: absent: Bradycardia, Tachycardia - GI/Abdominal Exam GI & Abdominal Exam: Soft. absent: Distended, Firm, Guarding, Rigid, Tenderness , Rebound Additional comments: dressing stained incisions w/ clean edges. in induration, erythema, fluctuance. - Extremities Exam Extremities Exam: Normal Inspection - Neurological Exam Neurological Exam: Alert, Awake, Oriented x3 - Psychiatric Exam Psychiatric exam: Normal Affect, Normal Mood - Skin Skin Exam: Dry, Normal Color, Warm Assessment and Plan - Assessment and Plan (Free Text) Assessment: 51 y/o F w/ abd wall abscess, POD#2 s/p I&D and debridement - wound Cx (+) Group B strep sensitive for Vanc - cont IV abx - packing removed - change dressings PRN - cont pain management - pt cleared for discharge, from surgical standpoint, w/ antibiotics Pt discussed w/ Dr. Tiffany Musa DO PGY2 <Sebastien Allen - Last Filed: 02/03/17 21:11> Objective - Vital Signs/Intake and Output Vital Signs (last 24 hours): Temp Pulse Resp BP Pulse Ox 97.8 F 70 20 117/75 97 02/03/17 08:14 02/03/17 08:14 02/03/17 08:14 02/03/17 08:14 02/03/17 08:14 Intake and Output: 02/03/17 02/04/17 18:59 06:59 Intake Total 540 Balance 540 - Labs Labs: 02/03/17 06:23 02/03/17 06:23 PT 11.1 SECONDS (9.7-12.2) 02/01/17 06:10 INR 1.0 02/01/17 06:10 APTT 28 SECONDS (21-34) 01/31/17 13:24 Attending/Attestation - Attestation I have personally seen and examined this patient.: Yes I have fully participated in the care of the patient.: Yes I have reviewed all pertinent clinical information, including history, physical exam and plan: Yes Notes (Text): 02/03/17 21:11 Pt was seen and examined at bedside Agree with above note and assessment Local Wound care DC home with PO antibiotics Plan d.w pt in detail f/u as out pt
[2017-02-03] MEDS: Vancomycin 1 gm/NS 200 ml 1 GM/200 ML BAG IVPB SCH (13:03)
[2017-02-03] MEDS ORDERED: Amoxicillin-Clav 875-125 mg Tab PO SCH (13:30)
--- NOTE | 2017-02-03 18:16 | CP.PCM.DIS ---
<DawsonTricia - Last Filed: 02/03/17 18:24> Provider - Provider Date of Admission: 01/31/17 15:19 Attending physician: Zoie Mcdonald DO Consults: Dr. Retana Infectious disease Dr. Allen General Surgery Time Spent in preparation of Discharge (in minutes): 35 Diagnosis - Discharge Diagnosis (1) Status post incision and drainage Status: Resolved (2) Abdominal abscess Status: Resolved Comment: erythema decreasing, on antibiotics Hospital Course - Lab Results Lab Results: Micro Results 02/01/17 Unknown Abscess - Abdominal Gram Stain - Final 02/01/17 Unknown Abscess - Abdominal Wound Culture - Final Beta Hemolytic Strep Group B 01/31/17 23:30 Blood-Venous Blood Culture - Preliminary NO GROWTH AFTER 48 HOURS 01/31/17 23:00 Blood-Venous Blood Culture - Preliminary NO GROWTH AFTER 48 HOURS 01/31/17 15:04 Abdomen Gram Stain - Final 01/31/17 15:04 Abdomen Wound Culture - Final Enterococcus Faecalis 01/31/17 23:00 Urine,Clean Catch Urine Culture - Final No Growth (<1,000 CFU/ML) Most Recent Lab Values WBC 4.4 K/uL (4.8-10.8) L 02/03/17 06:23 RBC 4.49 Mil/uL (3.80-5.20) 02/03/17 06:23 Hgb 12.0 g/dL (11.0-16.0) 02/03/17 06:23 Hct 35.6 % (34.0-47.0) 02/03/17 06:23 MCV 79.3 fL (81.0-99.0) L 02/03/17 06:23 MCH 26.7 pg (27.0-31.0) L 02/03/17 06:23 MCHC 33.7 g/dL (33.0-37.0) 02/03/17 06:23 RDW 14.1 % (11.5-14.5) 02/03/17 06:23 Plt Count 184 K/uL (130-400) 02/03/17 06:23 MPV 8.7 fL (7.2-11.7) 02/03/17 06:23 Neut % (Auto) 65.4 % (50.0-75.0) 02/03/17 06:23 Lymph % (Auto) 27.3 % (20.0-40.0) 02/03/17 06:23 [place] % (Auto) 6.3 % (0.0-10.0) 02/03/17 06:23 Eos % (Auto) 0.8 % (0.0-4.0) 02/03/17 06:23 Baso % (Auto) 0.2 % (0.0-2.0) 02/03/17 06:23 Neut # 2.9 K/uL (1.8-7.0) 02/03/17 06:23 Lymph # 1.2 K/uL (1.0-4.3) 02/03/17 06:23 [place] # 0.3 K/uL (0.0-0.8) 02/03/17 06:23 Eos # 0.0 K/uL (0.0-0.7) 02/03/17 06:23 Baso # 0.0 K/uL (0.0-0.2) 02/03/17 06:23 PT 11.1 SECONDS (9.7-12.2) 02/01/17 06:10 INR 1.0 02/01/17 06:10 APTT 28 SECONDS (21-34) 01/31/17 13:24 Plt Function Assay 153 K/uL 01/31/17 22:35 Sodium 132 mmol/L (132-148) 02/03/17 06:23 Potassium 4.4 mmol/L (3.6-5.2) 02/03/17 06:23 Chloride 99 mmol/L (98-107) 02/03/17 06:23 Carbon Dioxide 23 mmol/L (22-30) 02/03/17 06:23 Anion Gap 14 (10-20) 02/03/17 06:23 BUN 13 mg/dL (7-17) 02/03/17 06:23 Creatinine 0.5 mg/dL (0.7-1.2) L 02/03/17 06:23 Est GFR ( Amer) > 60 02/03/17 06:23 Est GFR (Non-Af Amer) > 60 02/03/17 06:23 POC Glucose (mg/dL) 247 mg/dL (65-110) H 02/03/17 11:01 Random Glucose 194 mg/dL (65-105) H 02/03/17 06:23 Hemoglobin A1c 12.7 % (4.2-6.5) H 02/01/17 06:10 Calcium 8.5 mg/dl (8.6-10.4) L 02/03/17 06:23 Magnesium 1.5 mg/dL (1.6-2.3) L 02/02/17 06:19 Total Bilirubin 0.7 mg/dL (0.2-1.3) 02/03/17 06:23 AST 22 U/L (14-36) 02/03/17 06:23 ALT 24 U/L (9-52) 02/03/17 06:23 Alkaline Phosphatase 74 U/L (38-126) 02/03/17 06:23 Total Protein 7.4 g/dL (6.3-8.3) 02/03/17 06:23 Albumin 3.4 g/dL (3.5-5.0) L 02/03/17 06:23 Globulin 3.9 gm/dL (2.2-3.9) 02/03/17 06:23 Albumin/Globulin Ratio 0.9 (1.0-2.1) L 02/03/17 06:23 Triglycerides 336 mg/dL (0-149) H D 02/01/17 06:10 Cholesterol 196 mg/dL (0-199) 02/01/17 06:10 LDL Cholesterol Direct 115 mg/dL (0-129) 02/01/17 06:10 HDL Cholesterol 35 mg/dL (30-70) 02/01/17 06:10 Urine Color Yellow (YELLOW) 01/31/17 13:37 Urine Clarity Hazy (Clear) 01/31/17 13:37 Urine pH 5.0 (5.0-8.0) 01/31/17 13:37 Ur Specific [place] 1.027 (1.003-1.030) 01/31/17 13:37 Urine Protein 1+ mg/dL (NEGATIVE) H 01/31/17 13:37 Urine Glucose (UA) 1+ mg/dL (Normal) 01/31/17 13:37 Urine Ketones Negative mg/dL (NEGATIVE) 01/31/17 13:37 Urine Blood 1+ (NEGATIVE) H 01/31/17 13:37 Urine Nitrate Negative (NEGATIVE) 01/31/17 13:37 Urine Bilirubin Negative (NEGATIVE) 01/31/17 13:37 Urine Urobilinogen Normal mg/dL (0.2-1.0) 01/31/17 13:37 Ur Leukocyte Esterase 2+ Zacarias/uL (Negative) H 01/31/17 13:37 Urine WBC (Auto) 63 /hpf (0-5) H 01/31/17 13:37 Urine RBC (Auto) 6 /hpf (0-3) H 01/31/17 13:37 Ur Squamous Epith Cells 11 /hpf (0-5) H 01/31/17 13:37 Urine Bacteria Rare (<OCC) 01/31/17 13:37 Urine HCG, Qual Negative (NEGATIVE) 01/31/17 13:37 Vancomycin Trough < 5.0 ug/mL (5.0-10.0) L 02/03/17 06:23 - Hospital Course Hospital Course: 51F with past medical hx of diabetes, asthma, HTN, hypercholesterolemia, arthritis, migraines, and gastritis presents to ED by PMD Dr. Espinosa. Pt saw her PMD on 01/26/2017 for a abscess on her left lower abdomen that started on 01/24/2017. Before seeing her PMD on 01/26, patient had a ball that popped on its own. Pt stated it then started to drain. Pt was started on Bactrim 800mg and Keflex 500mg by her PMD. Pt saw her PMD today 01/31/2017 and was referred to the ED because the antibiotics were not working. Pt stated that she was cleaning the wound with hydrogen peroxide daily. Pt complains of a burning pain at the sight. The abscess is 6cm x 1cm x 2mm. The abscess is draining and has an erythematous base. Pt stated she had once episode of vomiting this morning. Pt denies SOB, chest pain, fever, chills, diarrhea, cough, rhinorrhea. Pt also complains of increase headache, urinary frequency, dysuria, and odor in her urine. Pt denies hematuria. Abscess/cellulitis, necrotic tissue overlaying center of site of erythema was studied with CT abdomen/pelvis with PO/IV contrast follow up 02/01. Surgery consult Dr. Allen was consulted. Patient had debridement in OR today POD#1 , patient tolerated the procedure well. Vancomycin 1 gm IVPB QD, Zosyn 3.375 Q8H were given during hospital stay. For the fungal infection of abdominal fold was treated with nystatin powder BID PRN to affected areas Diabetes, treated with Insulin 8 units. Hemoglobin A1c was ordered and found to be 12.7. Patient had 10 units of Levemir increased to Levemir 20 units QHS. ACHS was ordered for monitoring diabetes. Patient instructed on high triglycerides and ideas to lower triglyceride and cholesterol levels after triglycerides found to be 336. During hospital stay, patient had a right arm forearm IV site that was blown, new IV reinserted 02/02. On 02/03 IV fell out, patient switched to Augmentin 500mg/125mg PO once today and discharged with antibiotics per ID consult for Dr. Retana, Patient is to be discharged on augmentin Prophylaxis DVT: SCDs, Clopidogrel 7mg POQD GI: Pepcid 20mg POQD Discharge instructions: Patient discharged with Augmentin 500mg/125mg PO BID #13. patient had first dose in hospital today. Patient to follow up with primary care doctor for triglyceride levels. Tricia Osman, DO PGY1 Discharge Exam - Head Exam Head Exam: NORMAL INSPECTION - Eye Exam Eye Exam: EOMI, Normal appearance - ENT Exam ENT Exam: Mucous Membranes Moist - Respiratory Exam Respiratory Exam: NORMAL BREATHING PATTERN. absent: Accessory Muscle Use, UNREMARKABLE - Cardiovascular Exam Cardiovascular Exam: REGULAR RHYTHM, +S1, +S2 - GI/Abdominal Exam GI & Abdominal Exam: Normal Bowel Sounds, Soft. absent: Tenderness - Extremities Exam Extremities exam: full ROM - Back Exam Back exam: FULL ROM - Neurological Exam Neurological exam: Alert, CN II-XII Intact, Normal Gait - Psychiatric Exam Psychiatric exam: Normal Affect, Normal Mood - Skin Skin Exam: Dry, Warm Additional comments: fungal infection in abdominal fold, with less erythema, nyastatin powder on fungal areas I&D and debrided site dressing c/d/i, no breathrough bleeding or discharge, purulence, increased induration Discharge Plan - Discharge Medications Prescriptions: Amoxicillin/Clavulanate [Augmentin 500 MG-125 MG] 1 tab PO BID #13 tab - Follow Up Plan Condition: FAIR Disposition: HOME/ ROUTINE Instructions: Amoxicillin/Clavulanate Potassium (By mouth), Urinary Tract Infection in Women (DC), Cellulitis (DC), Cellulitis (GEN), Basic Carbohydrate Counting (DC) Additional Instructions: Patient is medically stable for discharged. Patient is to follow up with primary care doctor in one week for hemoglobin A1c of 12.9 patient is to follow up with DR. Allen in one week to check on incision and drainage and debridement site continue home medications Take augmentin 500/125mg POBID once tonight and twice a day for 6 more days. Referrals: Sebastien Allen MD [Staff Provider] - <Zoie Mcdonald V - Last Filed: 02/03/17 20:08> Provider - Provider Date of Admission: 01/31/17 15:19 Attending physician: Zoie Mcdonald, Hospital Course - Lab Results Lab Results: Micro Results 02/01/17 Unknown Abscess - Abdominal Gram Stain - Final 02/01/17 Unknown Abscess - Abdominal Wound Culture - Final Beta Hemolytic Strep Group B 01/31/17 23:30 Blood-Venous Blood Culture - Preliminary NO GROWTH AFTER 48 HOURS 01/31/17 23:00 Blood-Venous Blood Culture - Preliminary NO GROWTH AFTER 48 HOURS 01/31/17 15:04 Abdomen Gram Stain - Final 01/31/17 15:04 Abdomen Wound Culture - Final Enterococcus Faecalis 01/31/17 23:00 Urine,Clean Catch Urine Culture - Final No Growth (<1,000 CFU/ML) Most Recent Lab Values WBC 4.4 K/uL (4.8-10.8) L 02/03/17 06:23 RBC 4.49 Mil/uL (3.80-5.20) 02/03/17 06:23 Hgb 12.0 g/dL (11.0-16.0) 02/03/17 06:23 Hct 35.6 % (34.0-47.0) 02/03/17 06:23 MCV 79.3 fL (81.0-99.0) L 02/03/17 06:23 MCH 26.7 pg (27.0-31.0) L 02/03/17 06:23 MCHC 33.7 g/dL (33.0-37.0) 02/03/17 06:23 RDW 14.1 % (11.5-14.5) 02/03/17 06:23 Plt Count 184 K/uL (130-400) 02/03/17 06:23 MPV 8.7 fL (7.2-11.7) 02/03/17 06:23 Neut % (Auto) 65.4 % (50.0-75.0) 02/03/17 06:23 Lymph % (Auto) 27.3 % (20.0-40.0) 02/03/17 06:23 [place] % (Auto) 6.3 % (0.0-10.0) 02/03/17 06:23 Eos % (Auto) 0.8 % (0.0-4.0) 02/03/17 06:23 Baso % (Auto) 0.2 % (0.0-2.0) 02/03/17 06:23 Neut # 2.9 K/uL (1.8-7.0) 02/03/17 06:23 Lymph # 1.2 K/uL (1.0-4.3) 02/03/17 06:23 [place] # 0.3 K/uL (0.0-0.8) 02/03/17 06:23 Eos # 0.0 K/uL (0.0-0.7) 02/03/17 06:23 Baso # 0.0 K/uL (0.0-0.2) 02/03/17 06:23 PT 11.1 SECONDS (9.7-12.2) 02/01/17 06:10 INR 1.0 02/01/17 06:10 APTT 28 SECONDS (21-34) 01/31/17 13:24 Plt Function Assay 153 K/uL 01/31/17 22:35 Sodium 132 mmol/L (132-148) 02/03/17 06:23 Potassium 4.4 mmol/L (3.6-5.2) 02/03/17 06:23 Chloride 99 mmol/L (98-107) 02/03/17 06:23 Carbon Dioxide 23 mmol/L (22-30) 02/03/17 06:23 Anion Gap 14 (10-20) 02/03/17 06:23 BUN 13 mg/dL (7-17) 02/03/17 06:23 Creatinine 0.5 mg/dL (0.7-1.2) L 02/03/17 06:23 Est GFR ( Amer) > 60 02/03/17 06:23 Est GFR (Non-Af Amer) > 60 02/03/17 06:23 POC Glucose (mg/dL) 247 mg/dL (65-110) H 02/03/17 11:01 Random Glucose 194 mg/dL (65-105) H 02/03/17 06:23 Hemoglobin A1c 12.7 % (4.2-6.5) H 02/01/17 06:10 Calcium 8.5 mg/dl (8.6-10.4) L 02/03/17 06:23 Magnesium 1.5 mg/dL (1.6-2.3) L 02/02/17 06:19 Total Bilirubin 0.7 mg/dL (0.2-1.3) 02/03/17 06:23 AST 22 U/L (14-36) 02/03/17 06:23 ALT 24 U/L (9-52) 02/03/17 06:23 Alkaline Phosphatase 74 U/L (38-126) 02/03/17 06:23 Total Protein 7.4 g/dL (6.3-8.3) 02/03/17 06:23 Albumin 3.4 g/dL (3.5-5.0) L 02/03/17 06:23 Globulin 3.9 gm/dL (2.2-3.9) 02/03/17 06:23 Albumin/Globulin Ratio 0.9 (1.0-2.1) L 02/03/17 06:23 Triglycerides 336 mg/dL (0-149) H D 02/01/17 06:10 Cholesterol 196 mg/dL (0-199) 02/01/17 06:10 LDL Cholesterol Direct 115 mg/dL (0-129) 02/01/17 06:10 HDL Cholesterol 35 mg/dL (30-70) 02/01/17 06:10 Urine Color Yellow (YELLOW) 01/31/17 13:37 Urine Clarity Hazy (Clear) 01/31/17 13:37 Urine pH 5.0 (5.0-8.0) 01/31/17 13:37 Ur Specific [place] 1.027 (1.003-1.030) 01/31/17 13:37 Urine Protein 1+ mg/dL (NEGATIVE) H 01/31/17 13:37 Urine Glucose (UA) 1+ mg/dL (Normal) 01/31/17 13:37 Urine Ketones Negative mg/dL (NEGATIVE) 01/31/17 13:37 Urine Blood 1+ (NEGATIVE) H 01/31/17 13:37 Urine Nitrate Negative (NEGATIVE) 01/31/17 13:37 Urine Bilirubin Negative (NEGATIVE) 01/31/17 13:37 Urine Urobilinogen Normal mg/dL (0.2-1.0) 01/31/17 13:37 Ur Leukocyte Esterase 2+ Zacarias/uL (Negative) H 01/31/17 13:37 Urine WBC (Auto) 63 /hpf (0-5) H 01/31/17 13:37 Urine RBC (Auto) 6 /hpf (0-3) H 01/31/17 13:37 Ur Squamous Epith Cells 11 /hpf (0-5) H 01/31/17 13:37 Urine Bacteria Rare (<OCC) 01/31/17 13:37 Urine HCG, Qual Negative (NEGATIVE) 01/31/17 13:37 Vancomycin Trough < 5.0 ug/mL (5.0-10.0) L 02/03/17 06:23 Attending/Attestation - Attestation I have personally seen and examined this patient.: Yes I have fully participated in the care of the patient.: Yes I have reviewed all pertinent clinical information, including history, physical exam and plan: Yes Notes (Text): Patient seen, examined and case discussed with day-time resident. Patient seen status post debridement POD 2 of abdominal abscess per general surgery. Patient reports she is feeling better. Patient is pain free. Surgical site looks improved; erythema resolving. Patient is an uncontrolled diabetic; a1c: 12.3. Patient is aware she needs to make dietary modifications to improve her sugars. Patient's 2nd wound culture showed Beta- Hemolytic Strep. Blood cultures are negative. Discussed with surgery and ID, patient is stable from their standpoint. ID recommended for Augmentin upon discharge Discharge order and discharge instructions discussed with patient and day-time resident. Medications reconciled upon discharge with day-time resident. New prescriptions: Augmentin 500-125mg 1 tab PO BID (13 tabs) first dose completed in hospital Patient advised to restart Plavix tomorrow. Patient recommended to follow-up surgery upon discharge and follow-up with primary care doctor, Dr. Espinosa upon discharge. This is a summary of patient's hospitalization. Please refer to EMR for further details. Discharge Diagnoses: 1) Abscess/cellulitis, necrotic tissue overlaying center of site of erythema--> Stable * Infectious Disease (Dr. Retana)-->help appreciated * Per ID, stable from their standpoint for discharge; recommended Augmentin upon discharge * Recommend Augmentin upon discharge * General surgery (Dr. Allen)-->help appreciated * Per surgery, stable from their standpoint for discharge * CT abdomen/pelvis with PO and IV contrast given overlying cellulitis over abdomen 02/02 * Given Zosyn and Vancomycin in the ED * Start Zosyn 3.375 IVPB Q 8 hours (active since 01/31/17) * Start Vancomycin 1 gram IVPB Qdaily (active since 01/31/17) * Wound culture: enteroccous * Wound culture 2 post OR: beta hemolytic strep * Blood cultures: negative * CT abdomen/pelvis (PO and IV contrast): large soft tissue defect involving the left lateral anterior abdominal wall. No associated focal fluid collections or abscess identified. 2 cm probable right ovarian cyst. Hypoattenutation of the liver compatible with hepatic steatosis. Borderline hepatomegaly. Cholelithiasis. Mildly thick-walled urinary bladder may be exaggerated by under distension. correlate with UA 2) Fungal infection of abdominal fold * nystatin powder BID PRN to affected areas 3) Diabetes, uncontrolled-->Chronic * Regular insulin sliding scale subq * Give 1/2 Levemir 10 units QHS tonight-->will resume 20 units (Home dose) * Januvia 100mg PO daily * Hypoglycemic protocol * hgba1c: 12.3, lipid panel: elevated TG; cholestrol; LDL: elevated; and low HDL * On max dose statin 4) Hypercholestrolemia; History of Cartoid Artery Disease s/p endartectomy--> Chronic * Advised to restart Plavix tomorrow * Crestor 40mg POqHS 5) Urinary Tract Infection; Dysuria-->resolved * UA abnormal * Pending urine culture--was received: no growth * Patient is on Zosyn to cover empiric treatment for UTI 6) History of Asthma-->Chronic * Patient is not in acute asthma exacerbation * Portable chest xray ordered * Duonebs PRN shortness of breathe 7) Prophylaxis * DVT: SCDs b/l; restart Heparin 5000 units subq8H * GI: Protonix 40mg IV q daily * Florastor 250mg PO bid * NS 100cc/hr
== END 2017-02-03 15:27 | disposition home or self-care (01) | DRG 603 ==
LOC: C.ER 10:07 → C.9E 15:19 → C.3T 16:37
PROVIDERS: ADMIT Hospitalist; ATTEND Hospitalist
PROC: 0HB7XZZ Excision of Abdomen Skin, External Approach (ICD-10-PCS; principal; 2017-02-01 11:30)
DX: L02.211 Cutaneous abscess of abdominal wall (principal); I96 Gangrene, not elsewhere classified; E11.65 Type 2 diabetes mellitus with hyperglycemia; J44.9 Chronic obstructive pulmonary disease, unspecified; I10 Essential (primary) hypertension; B36.9 Superficial mycosis, unspecified; J45.909 Unspecified asthma, uncomplicated; N39.0 Urinary tract infection, site not specified; E78.00 Pure hypercholesterolemia, unspecified

== ENCOUNTER 2018-09-20 21:02 | Inpatient (IN) | payer BC, MEDICAID, OTHER ==
[2018-09-20 21:02] VITALS: BMI 30.1
--- NOTE | 2018-09-20 21:16 | C.PDOC ---
History Of Present Illness Patient presents to ED with complaint of worsening ulcer to the left great toe. 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 Her great toe is her only toe left on her left f oot. Patient denies fever, chills, nausea,and vomiting. Time Seen by Provider: 09/20/18 21:15 Chief Complaint (Nursing): Wound Check History Per: Patient History/Exam Limitations: no limitations Onset/Duration Of Symptoms: Other (unknown) Current Symptoms Are (Timing): Worse Location Of Injury: Left: Foot (ulcer to the great toe) Quality Of Symptoms: Painful Severity: Mild Pain Scale Rating Of: 3 Recent travel outside of the [place]: No Additional History Per: Patient Past Medical History Reviewed: Historical Data, Nursing Documentation, Vital Signs Vital Signs: Last Vital Signs Temp 97.8 F 09/20/18 21:08 Pulse 80 09/20/18 21:08 Resp 14 09/20/18 21:08 BP 174/84 H 09/20/18 21:08 Pulse Ox 97 09/20/18 21:08 Primary Care Provider: FAMILY PROVIDER,NO - Medical History PMH: Arthritis, Asthma, COPD, Diabetes, Gastritis, HTN, Hypercholesterolemia, Migraine Denies: Chronic Kidney Disease Surgical History: Carotid Endarterectomy - [facility] Procedures DERMAL REGENERATIVE GRAFT (06/17/14) DETACHMENT AT LEFT 2ND TOE, HIGH, OPEN APPROACH (11/24/15) DILATION OF 2 COR ART WITH DRUG-ELUT INTRALUM, PERC APPROACH (02/03/15) EXCIS DEBRIDE OF WOUND, INFECT, OR BURN (03/09/14) EXCISION OF ABDOMEN SKIN, EXTERNAL APPROACH (01/31/17) FLUOROSCOPY OF MULT COR ART USING L OSM CONTRAST (02/03/15) FLUOROSCOPY OF RIGHT AND LEFT HEART USING L OSM CONTRAST (02/03/15) LOC EXC LES METATAR/TAR (06/17/14) MEASURE OF CARDIAC SAMPL & PRESSURE, L HEART, PERC APPROACH (02/03/15) NONEXCIS DEBRID OF WOUND, INFECT, OR BURN (06/28/14) OTHER SKIN & SUBQ I D (03/09/14) TOE AMPUTATION (06/28/14) VACCINATION NEC (06/28/14) Family History: States: Unknown Family Hx - Social History Hx Tobacco Use: No Hx Alcohol Use: No Hx Substance Use: No - Immunization History Hx Tetanus Toxoid Vaccination: No Hx Influenza Vaccination: No Hx Pneumococcal Vaccination: No Review Of Systems Constitutional: Negative for: Fever, Chills, Weakness Cardiovascular: Negative for: Chest Pain Respiratory: Negative for: Cough, Shortness of Breath Gastrointestinal: Negative for: Nausea, Vomiting Musculoskeletal: Positive for: Foot Pain (ulcer to the left great toe) Skin: Negative for: Rash Neurological: Negative for: Weakness, Numbness Physical Exam - Physical Exam Appears: Non-toxic, No Acute Distress Skin: Warm, Dry Head: Normacephalic Eye(s): bilateral: Normal Inspection Oral Mucosa: Moist Neck: Trachea Midline, Supple Chest: Symmetrical Cardiovascular: Rhythm Regular, No Murmur Respiratory: No Rales, No Rhonchi, No Wheezing Gastrointestinal/Abdominal: Bowel Sounds (normoactive), Soft, No Tenderness, No Distention Extremity: Normal ROM, No Tenderness, Capillary Refill <2 Sec, No Deformity, No Swelling, Other (1.2 by 2 cm non-healing pressure ulcer on the ventral aspect of the left great toe) Pulses: Left Dorsalis Pedis: Normal, Right Dorsalis Pedis: Normal Neurological/Psych: Oriented x3, Normal Speech, Normal Cognition, Normal Motor, Normal Sensation Gait: With Assistance (cane) ED Course And Treatment - Laboratory Results Result Diagrams: 09/20/18 21:32 09/20/18 21:32 O2 Sat by Pulse Oximetry: 97 (in RA) Pulse Ox Interpretation: Normal Progress Note: VBG and EKG ordered for patient. Labs ordered with CMP, CBC, prothrombin, and blood culture. Patient given IV fluids. Disposition Discussed With : Viral Nelson Comment: accepted the pt on his service and took over the care at 11:15 PM Doctor Will See Patient In The: ED Counseled Patient/Family Regarding: Studies Performed, Diagnosis - Disposition Disposition: HOSPITALIZED Disposition Time: 21:16 Condition: GUARDED Forms: [facility] (Citizen Of [place]) - POA Present On Arrival: Poor Glycemic Control, Pressure Ulcer - Clinical Impression Clinical Impression: Diabetes mellitus, insulin dependent (IDDM), uncontrolled, Pressure ulcer - Scribe Statement The provider has reviewed the documentation as recorded by the Scribe (Josiah Griffin) All medical record entries made by the Scribe were at my direction and personally dictated by me. I have reviewed the chart and agree that the record accurately reflects my personal performance of the history, physical exam, medical decision making, and the department course for this patient. I have also personally directed, reviewed, and agree with the discharge instructions and dis position. Decision To Admit - Pt Status Changed To: Hospital Disposition Of: Inpatient - Admit Certification Admit to Inpatient:: After my assessment, the patient will require hospita lization for at least two midnights. This is because of the severity of symptoms shown, intensity of services needed, and/or the medical risk in this patient being treated as an outpatient. - InPatient: Physician Admission Certification: I certify that this patient requires 2 or more midnights of care for the following reason:: After my assessment, the patie nt will require hospitalization for at least two midnights. This is because of the severity of symptoms shown, intensity of services needed, and/or the medical risk in this patient being treated as an outpatient. - . Bed Request Type: Regular Admitting Physician: Viral Nelson Patient Diagnosis: Diabetes mellitus, insulin dependent (IDDM), uncontrolled, Pressure ulcer
[2018-09-20] MEDS ORDERED: Sodium Chloride 0.9% 1,000 ML IV ONE ×2 (21:20→22:23)
[2018-09-20 21:39] LABS: VENOUS BLOOD GAS PCO2 48 mmHg (40-60); VENOUS BLOOD GAS PO2 36 mm/Hg (30-55); VENOUS BLOOD PH 7.36 (7.32-7.43)
[2018-09-20 21:41] LABS: BASO % 0.3 % (0.0-2.0); EOS % 0.8 % (0.0-4.0); HEMOGLOBIN 12.7 g/dL (11.0-16.0); LYMPH # 1.3 K/uL (1.0-4.3); LYMPH % 29.9 % (20.0-40.0); MEAN CELL VOLUME 82.4 fL (81.0-99.0); MEAN CORPUSCULAR HEMOGLOBIN 28.1 pg (27.0-31.0); MEAN CORPUSCULAR HGB CONC 34.1 g/dL (33.0-37.0); MEAN PLATELET VOLUME 9.9 fL (7.2-11.7); MONO # 0.2 K/uL (0.0-0.8); MONO % 5.5 % (0.0-10.0); NEUT # 2.7 K/uL (1.8-7.0); NEUT % 63.5 % (50.0-75.0); RBC 4.52 Mil/uL (3.80-5.20); RED CELL DISTRIBUTION WIDTH 13.8 % (11.5-14.5); WHITE BLOOD COUNT 4.2 K/uL (4.8-10.8)
[2018-09-20 21:48] LABS: INR 0.8; PARTIAL THROMBOPLASTIN TIME 23.3 SECONDS (21-34)
[2018-09-20 21:56] LABS: ALBUMIN 4.5 g/dL (3.5-5.0); ALT/SGPT 12 U/L (9-52); AST/SGOT 53 U/L (14-36); BLOOD UREA NITROGEN 15 mg/dL (7-17); CALCIUM 9.1 mg/dl (8.6-10.4); GFR NON-AFRICAN AMERICAN > 60
[2018-09-20 22:05] LABS: PROTHROMBIN TIME 9.1 SECONDS (9.7-12.2)
[2018-09-20] MEDS ORDERED: (Novolin R) Insulin Human Regular 100 units/ml vial IVP ONE ×2 (22:54→23:39)
[2018-09-20] MEDS ORDERED: Sodium Chloride 0.9% 1,000 ML ONE (23:07)
--- NOTE | 2018-09-20 23:28 | CP.PCM.HP ---
<Celestino Cortez - Last Filed: 09/21/18 05:55> History of Present Illness - History of Present Illness History of Present Illness: 53F PMHx of uncontrolled Diabetes, HTN, Hypercholesterolemia, asthma, gastritis, migraines presents with a 6 month history of a worsening ventral ulcer on her big toe, L foot. She says it stated as a scratch and gradually got deeper and wider. Pt noticed it began to discolor dark about a week ago. Reports no pain at this time in the area, she's mainly concerned because it causes her balance issues. Pt says she is still able to feel and discriminate touch/motion in her toes and feet. Pt does not control her Diabetes well, does not check her blood sugars, does not eat appropriate diet, does not take any prescribed medications consistently. lost job and also health insurance so she has been without a PMD for 2 years or so. Was previously with PMD Dr Espinosa. Pt says he had originally put her on metformin 850 but then switched her to januvia because of adverse effects. ROS: Pos+ med non compliance, L big toe ulcer, poor diet, increased thirst and urination Neg- CP, SOB, FC, NV, bleeding from wound, new ulcers, numbness/tingling, PMHx:Diabetes, HTN, Hypercholesterolemia, asthma, gastritis, migraine PSx:Toe amputations 2014, Carotid endartectomy 2014, Dermal graft 2014, Cardiac Cath 2014 FHx:Mother Ca-unknown, Grandmother diabetes Social HX: Denies tobacco, alcohol, and illicit drug use, Unemployed, Lives with and son Allergies: Denies Home Rx: Januvia inconsistently Lantus 20 HS (previous) Present on Admission - Present on Admission Any Indicators Present on Admission: Yes History of Uncontrolled Diabetes: Yes Review of Systems - Review of Systems All systems: reviewed and no additional remarkable complaints except (as per HPI) Past Patient History - Infectious Disease Hx of Infectious Diseases: None - Tetanus Immunizations Tetanus Immunization: Unknown - Past Medical History & Family History Past Medical History?: Yes - Past Social History Smoking Status: Never Smoked - CARDIAC Hx Hypercholesterolemia: Yes Hx Hypertension: Yes - PULMONARY Hx Asthma: Yes Hx Chronic Obstructive Pulmonary Disease (COPD): Yes - NEUROLOGICAL Hx Migraine: Yes - HEENT Hx HEENT Problems: No - RENAL Hx Chronic Kidney Disease: No - ENDOCRINE/METABOLIC Hx Endocrine Disorders: Yes Hx Diabetes Mellitus Type 2: Yes - HEMATOLOGICAL/ONCOLOGICAL Hx Blood Disorders: No Other/Comment: Family members have a history of cancer and HIV. - INTEGUMENTARY Hx Dermatological Problems: No Hx Cellulitis: ( ) - MUSCULOSKELETAL/RHEUMATOLOGICAL Hx Arthritis: Yes - GASTROINTESTINAL Hx Gastritis: Yes - GENITOURINARY/GYNECOLOGICAL Hx Genitourinary Disorders: No - PSYCHIATRIC Hx Substance Use: No - SURGICAL HISTORY Hx Carotid Endarterectomy: Yes - ANESTHESIA Hx Anesthesia: Yes Hx Anesthesia Reactions: No Hx Malignant Hyperthermia: No Meds Allergies/Adverse Reactions: Allergies Allergy/AdvReac Type Severity Reaction Status Date / Time No Known Allergies Allergy Verified 09/20/18 21:11 Physical Exam - Constitutional Appears: Non-toxic, No Acute Distress - Head Exam Head Exam: ATRAUMATIC, NORMOCEPHALIC - Eye Exam Eye Exam: EOMI, PERRL. absent: Scleral icterus - ENT Exam ENT Exam: Mucous Membranes Moist - Neck Exam Neck exam: Negative for: Lymphadenopathy, Thyromegaly - Respiratory Exam Respiratory Exam: Clear to Auscultation Bilateral. absent: Rales, Wheezes - Cardiovascular Exam Cardiovascular Exam: RRR, +S1, +S2 - GI/Abdominal Exam GI & Abdominal Exam: Soft. absent: Firm, Rigid, Tenderness - Extremities Exam Extremities exam: Positive for: full ROM, normal capillary refill, pedal pulses present. Negative for: pedal edema, tenderness Additional comments: 1x2cm ventral ulcer L first toe, not bleeding, non erythematous,non tender, pinpoint and proprioception intact - Neurological Exam Neurological exam: Alert, CN II-XII Intact, Oriented x3 - Psychiatric Exam Psychiatric exam: Normal Affect, Normal Mood - Skin Skin Exam: Normal Color, Warm Additional comments: no additional lesions noted on feet, no signs of charcot Results - Vital Signs Recent Vital Signs: Last Vital Signs Temp 97.8 F 09/20/18 21:08 Pulse 80 09/20/18 21:08 Resp 14 09/20/18 21:08 BP 174/84 H 09/20/18 21:08 Pulse Ox 97 09/20/18 23:18 - Labs Result Diagrams: 09/20/18 21:32 09/20/18 21:32 Labs: Laboratory Results - last 24 hr 09/20/18 09/20/18 09/20/18 21:15 21:16 21:32 WBC 4.2 L RBC 4.52 Hgb 12.7 Hct 37.3 MCV 82.4 D MCH 28.1 MCHC 34.1 RDW 13.8 Plt Count 186 MPV 9.9 Neut % (Auto) 63.5 Lymph % (Auto) 29.9 Hill % (Auto) 5.5 Eos % (Auto) 0.8 Baso % (Auto) 0.3 Neut # (Auto) 2.7 Lymph # (Auto) 1.3 Hill # (Auto) 0.2 Eos # (Auto) 0.0 Baso # (Auto) 0.0 PT INR APTT pO2 VBG pH VBG pCO2 VBG HCO3 VBG Total CO2 VBG Base Excess VBG Potassium Sodium Chloride Glucose Lactate Crit Value Called To Crit Value Called By Crit Value Read Back Blood Gas Notified Time Potassium Carbon Dioxide Anion Gap BUN Creatinine Est GFR ( Amer) Est GFR (Non-Af Amer) POC Glucose (mg/dL) 494 H* 500 H* Random Glucose Hemoglobin A1c Calcium Total Bilirubin AST ALT Alkaline Phosphatase Total Protein Albumin Globulin Albumin/Globulin Ratio Venous Blood Potassium B-Hydroxybutyrate 09/20/18 09/20/18 09/20/18 21:32 21:32 21:32 WBC RBC Hgb Hct MCV MCH MCHC RDW Plt Count MPV Neut % (Auto) Lymph % (Auto) Hill % (Auto) Eos % (Auto) Baso % (Auto) Neut # (Auto) Lymph # (Auto) Hill # (Auto) Eos # (Auto) Baso # (Auto) PT 9.1 L INR 0.8 APTT 23.3 pO2 36 VBG pH 7.36 VBG pCO2 48 VBG HCO3 24.9 VBG Total CO2 28.6 H VBG Base Excess 1.0 VBG Potassium 6.8 H* Sodium 133 134.0 Chloride 97 L 101.0 Glucose 520 H* Lactate 1.8 Crit Value Called To Kush vidal md Crit Value Called By Lendl Crit Value Read Back Y Blood Gas Notified Time 2138 Potassium 5.4 H Carbon Dioxide 25 Anion Gap 17 BUN 15 Creatinine 0.6 L Est GFR ( Amer) > 60 Est GFR (Non-Af Amer) > 60 POC Glucose (mg/dL) Random Glucose 499 H* D Hemoglobin A1c Calcium 9.1 Total Bilirubin 1.3 AST 53 H D ALT 12 Alkaline Phosphatase 115 Total Protein 9.1 H Albumin 4.5 Globulin 4.5 H Albumin/Globulin Ratio 1.0 Venous Blood Potassium 6.8 H* B-Hydroxybutyrate 0.18 09/20/18 21:32 WBC RBC Hgb Hct MCV MCH MCHC RDW Plt Count MPV Neut % (Auto) Lymph % (Auto) Hill % (Auto) Eos % (Auto) Baso % (Auto) Neut # (Auto) Lymph # (Auto) Hill # (Auto) Eos # (Auto) Baso # (Auto) PT INR APTT pO2 VBG pH VBG pCO2 VBG HCO3 VBG Total CO2 VBG Base Excess VBG Potassium Sodium Chloride Glucose Lactate Crit Value Called To Crit Value Called By Crit Value Read Back Blood Gas Notified Time Potassium Carbon Dioxide Anion Gap BUN Creatinine Est GFR ( Amer) Est GFR (Non-Af Amer) POC Glucose (mg/dL) Random Glucose Hemoglobin A1c 15.0 H Calcium Total Bilirubin AST ALT Alkaline Phosphatase Total Protein Albumin Globulin Albumin/Globulin Ratio Venous Blood Potassium B-Hydroxybutyrate Assessment & Plan - Assessment and Plan (Free Text) Plan: Diabetes, uncontrolled- acute gluc >500 ISS High Lantus 20 HS Januvia 100mg PO daily Hypoglycemic protocol NS @ 125 Crestor 5 HS Lisinopril 5mg daily hgba1c: 15, f/u lipid panel, TSH 1x2cm Ulcer- chronic Wound care consulted afebrile, WBCs wnl CT L Lower Ext: prelim read no signs of osteo consider podiatry consult recommending outpt f/u HTN-acute on chronic Lisinopril 5 daily monitor Hx of HLD Hx CAD s/p endartectomy-chronic Crestor 5 HS ASA 81mg daily Hx Asthma-chronic Duonebs q6 PRN PPX Heparin 5000u q8 ASA 81 PTX 40 daily Diabetic HHD CK PGY1 dw Dr Nelson <Viral Nelson - Last Filed: 09/21/18 06:07> Results - Vital Signs Recent Vital Signs: Last Vital Signs Temp 97.6 F 09/21/18 01:48 Pulse 81 09/21/18 01:48 Resp 20 09/21/18 01:48 BP 144/82 09/21/18 01:48 Pulse Ox 100 09/21/18 01:48 - Labs Result Diagrams: 09/20/18 21:32 09/20/18 21:32 Labs: Laboratory Results - last 24 hr 09/20/18 09/20/18 09/20/18 21:15 21:16 21:32 WBC 4.2 L RBC 4.52 Hgb 12.7 Hct 37.3 MCV 82.4 D MCH 28.1 MCHC 34.1 RDW 13.8 Plt Count 186 MPV 9.9 Neut % (Auto) 63.5 Lymph % (Auto) 29.9 Hill % (Auto) 5.5 Eos % (Auto) 0.8 Baso % (Auto) 0.3 Neut # (Auto) 2.7 Lymph # (Auto) 1.3 Hill # (Auto) 0.2 Eos # (Auto) 0.0 Baso # (Auto) 0.0 PT INR APTT pO2 VBG pH VBG pCO2 VBG HCO3 VBG Total CO2 VBG Base Excess VBG Potassium Sodium Chloride Glucose Lactate Crit Value Called To Crit Value Called By Crit Value Read Back Blood Gas Notified Time Potassium Carbon Dioxide Anion Gap BUN Creatinine Est GFR ( Amer) Est GFR (Non-Af Amer) POC Glucose (mg/dL) 494 H* 500 H* Random Glucose Hemoglobin A1c Calcium Total Bilirubin AST ALT Alkaline Phosphatase Total Protein Albumin Globulin Albumin/Globulin Ratio Venous Blood Potassium B-Hydroxybutyrate 09/20/18 09/20/18 09/20/18 21:32 21:32 21:32 WBC RBC Hgb Hct MCV MCH MCHC RDW Plt Count MPV Neut % (Auto) Lymph % (Auto) Hill % (Auto) Eos % (Auto) Baso % (Auto) Neut # (Auto) Lymph # (Auto) Hill # (Auto) Eos # (Auto) Baso # (Auto) PT 9.1 L INR 0.8 APTT 23.3 pO2 36 VBG pH 7.36 VBG pCO2 48 VBG HCO3 24.9 VBG Total CO2 28.6 H VBG Base Excess 1.0 VBG Potassium 6.8 H* Sodium 133 134.0 Chloride 97 L 101.0 Glucose 520 H* Lactate 1.8 Crit Value Called To Kush vidal md Crit Value Called By Nara Crit Value Read Back Y Blood Gas Notified Time 2138 Potassium 5.4 H Carbon Dioxide 25 Anion Gap 17 BUN 15 Creatinine 0.6 L Est GFR ( Amer) > 60 Est GFR (Non-Af Amer) > 60 POC Glucose (mg/dL) Random Glucose 499 H* D Hemoglobin A1c Calcium 9.1 Total Bilirubin 1.3 AST 53 H D ALT 12 Alkaline Phosphatase 115 Total Protein 9.1 H Albumin 4.5 Globulin 4.5 H Albumin/Globulin Ratio 1.0 Venous Blood Potassium 6.8 H* B-Hydroxybutyrate 0.18 09/20/18 09/20/18 09/21/18 21:32 23:37 00:51 WBC RBC Hgb Hct MCV MCH MCHC RDW Plt Count MPV Neut % (Auto) Lymph % (Auto) Hill % (Auto) Eos % (Auto) Baso % (Auto) Neut # (Auto) Lymph # (Auto) Hill # (Auto) Eos # (Auto) Baso # (Auto) PT INR APTT pO2 VBG pH VBG pCO2 VBG HCO3 VBG Total CO2 VBG Base Excess VBG Potassium Sodium Chloride Glucose Lactate Crit Value Called To Crit Value Called By Crit Value Read Back Blood Gas Notified Time Potassium Carbon Dioxide Anion Gap BUN Creatinine Est GFR ( Amer) Est GFR (Non-Af Amer) POC Glucose (mg/dL) 437 H* 235 H Random Glucose Hemoglobin A1c 15.0 H Calcium Total Bilirubin AST ALT Alkaline Phosphatase Total Protein Albumin Globulin Albumin/Globulin Ratio Venous Blood Potassium B-Hydroxybutyrate Assessment & Plan - Date & Time Date: 09/21/18 (I have seen and examined the patient. I agree with the findings and plan of care as documented by Dr. Cortez. Patient with uncontrolled diabetes. Diabetic ulcer on left toe. Continue home meds. NISS and accuchecks. Bacitracin. Podiatry consult. Also with history of hypertension. Continue home meds. Monitor for acute changes.) Time: 06:05 Attending/Attestation - Attestation I have personally seen and examined this patient.: Yes I have fully participated in the care of the patient.: Yes I have reviewed all pertinent clinical information: Yes
[2018-09-20] MEDS ORDERED: Glucagon Recombinant 1 mg Inj IM PRN (23:35)
[2018-09-20] MEDS ORDERED: Dextrose 50% SYRINGE Inj (50 ml) IV PRN (23:35)
[2018-09-20] MEDS ORDERED: (Novolin R) Insulin Human Regular 100 units/ml vial ONE (23:46)
[2018-09-21] MEDS: Sodium Chloride 0.9% 1,000 ML IV SCH ×4 (00:52→15:58)
[2018-09-21] MEDS ORDERED: Albuterol-Ipratrop 3 mg / 0.5 (3 ml) UD INH PRN (03:28)
[2018-09-21 07:18] LABS: BASO % 0.1 % (0.0-2.0); EOS % 1.1 % (0.0-4.0); HEMOGLOBIN 11.4 g/dL (11.0-16.0); LYMPH # 1.3 K/uL (1.0-4.3); LYMPH % 31.9 % (20.0-40.0); MEAN CORPUSCULAR HEMOGLOBIN 27.6 pg (27.0-31.0); MEAN CORPUSCULAR HGB CONC 33.7 g/dL (33.0-37.0); MEAN PLATELET VOLUME 9.6 fL (7.2-11.7); MONO # 0.2 K/uL (0.0-0.8); MONO % 5.9 % (0.0-10.0); NEUT # 2.4 K/uL (1.8-7.0); RBC 4.15 Mil/uL (3.80-5.20); RED CELL DISTRIBUTION WIDTH 14.1 % (11.5-14.5); WHITE BLOOD COUNT 3.9 K/uL (4.8-10.8)
[2018-09-21] MEDS ORDERED: (Novolin R) Insulin Human Regular 100 units/ml vial SC SCH (07:30)
[2018-09-21 07:44] LABS: ALBUMIN 3.3 g/dL (3.5-5.0); ALT/SGPT 19 U/L (9-52); AST/SGOT 23 U/L (14-36); BLOOD UREA NITROGEN 12 mg/dL (7-17); CALCIUM 7.9 mg/dl (8.6-10.4); GFR NON-AFRICAN AMERICAN > 60
[2018-09-21] MEDS: (Novolin 70/30) NPH/Regular 70/30 Units/ml 10 ml vial SC SCH (08:08)
--- NOTE | 2018-09-21 11:04 | CT ---
CT left forefoot HISTORY: Hallux ulcer. Comparison: None available. Technique: Multiple contiguous axial images were performed through the left forefoot without the use of intravenous contrast. Subsequently, sagittal and coronal reformatted images were obtained. This CT exam was performed using one or more of the following dose reduction techniques: Automated exposure control, adjustment of the mA and/or kV according to patient size, and/or use of iterative reconstruction technique. Findings: Prominent soft tissue ulceration noted at the volar aspect of the 1st distal phalanx with adjacent confluent reticulation and edema measuring up to 2.3 x 1.0 centimeters which may represent developing phlegmon and/or abscess collection. This appears to extend to the inferior cortex of the distal phalanx. No gross cortical destructive changes noted. If there is concern for acute osteomyelitis at this level, further evaluation with contrast-enhanced MRI and or three-phase bone scan may be helpful if clinically indicated. Moderate hallux valgus deformity with prominent degenerative changes at the 1st MTP joint space with sclerosis at the metatarsal bones and adjacent osteophytosis at the volar aspect of the 1st proximal phalanx. Plantar and dorsal calcaneal spurring. Prominent degenerative changes of the midfoot with dorsal spurring noted at the talonavicular joint space. Prominent degenerative changes at the dorsal aspect of the articulation of the medial and middle cuneiform bones with bony spurring and hypertrophy. Additional osteophytosis noted at the lateral aspect of the medial cuneiform bone near the site of the Lisfranc ligament. Underlying Lisfranc ligament involvement cannot be excluded on the basis of these images. Clinical correlation. This may be better delineated with MRI. Prior amputations of the 2nd 3rd and 5th digits to the level of the metatarsal heads with some productive change and or osteophytosis adjacent to the remnant 5th metatarsal head. Associated soft tissue thickening at the level of the soft tissues of the resection beds of the 2nd 3rd and 5th digits at the remnant metatarsal heads. Clinical correlation. Anterior osteophytosis at the anterior process of the calcaneus near its articulation with the navicular bone. Focal exostosis at the volar aspect of the cuboid bone. Impression: 1. Prominent soft tissue ulceration noted at the volar aspect of the 1st distal phalanx with adjacent confluent reticulation and edema measuring up to 2.3 x 1.0 centimeters which may represent developing phlegmon and/or abscess collection. This appears to extend to the inferior cortex of the distal phalanx. No gross cortical destructive changes noted. If there is concern for acute osteomyelitis at this level, further evaluation with contrast-enhanced MRI and or three-phase bone scan may be helpful if clinically indicated. 2. Moderate hallux valgus deformity with prominent degenerative changes at the 1st MTP joint space with sclerosis at the metatarsal bones and adjacent osteophytosis at the volar aspect of the 1st proximal phalanx. 3. Plantar and dorsal calcaneal spurring. 4. Prominent degenerative changes of the midfoot with dorsal spurring noted at the talonavicular joint space. 5. Prominent degenerative changes at the dorsal aspect of the articulation of the medial and middle cuneiform bones with bony spurring and hypertrophy. Additional osteophytosis noted at the lateral aspect of the medial cuneiform bone near the site of the Lisfranc ligament. Underlying Lisfranc ligament involvement cannot be excluded on the basis of these images. Clinical correlation. This may be better delineated with MRI. 6. Prior amputations of the 2nd 3rd and 5th digits to the level of the metatarsal heads with some productive change and or osteophytosis adjacent to the remnant 5th metatarsal head. Associated soft tissue thickening at the level of the soft tissues of the resection beds of the 2nd 3rd and 5th digits at the remnant metatarsal heads. Clinical correlation. 7. Anterior osteophytosis at the anterior process of the calcaneus near its articulation with the navicular bone. 8. Focal exostosis at the volar aspect of the cuboid bone. A preliminary report was generated at 11:29 p.m. on 09/20/[address] Glenn Rachel from [facility].
[2018-09-21] MEDS: Bacitracin 500 Units/gm Oint Foilpak UD TOP SCH ×3 (12:08→19:36)
--- NOTE | 2018-09-21 14:08 | CP.PCM.PN ---
<Alfonzo Garcia - Last Filed: 09/21/18 17:16> Subjective - Date & Time of Evaluation Date of Evaluation: 09/21/18 Time of Evaluation: 14:00 - Subjective Subjective: PGY1 medicine progress note for Dr. Angel Ng Pt seen and examined at bedside. Pt is resting comfortably. States left foot pain is well controlled. Denies fever, chills, chest pain, sob, abdominal pain, n/v/d, headache, dizziness, lightheadedness, visual changes. Objective - Vital Signs/Intake and Output Vital Signs (last 24 hours): Temp Pulse Resp BP Pulse Ox 98.1 F 67 20 117/72 97 09/21/18 07:42 09/21/18 07:42 09/21/18 07:42 09/21/18 07:42 09/21/18 07:42 - Medications Medications: Current Medications Acetaminophen (Tylenol 325mg Tab) 650 mg PO Q6 PRN PRN Reason: fever/pain Last Admin: 09/21/18 11:32 Dose: 650 mg Albuterol/Ipratropium (Duoneb 3 Mg/0.5 Mg (3 Ml) Ud) 3 ml INH RQ6 PRN PRN Reason: Shortness of Breath Aspirin (Aspirin Chewable) 81 mg PO DAILY [facility] Last Admin: 09/21/18 11:32 Dose: 81 mg Bacitracin (Bacitracin) 1 ea TOP BID [facility] Last Admin: 09/21/18 12:08 Dose: Not Given Dextrose (Dextrose 50% Inj) 0 ml IV STAT PRN; Protocol PRN Reason: Hypoglycemia Protocol Dextrose (Glutose 15) 0 gm PO ONCE PRN; Protocol PRN Reason: Hypoglycemia Protocol Glucagon (Glucagen Diagnostic Kit) 0 mg IM STAT PRN; Protocol PRN Reason: Hypoglycemia Protocol Heparin Sodium (Porcine) (Heparin) 5,000 units SC Q12 [facility] Last Admin: 09/21/18 11:33 Dose: 5,000 units Dextrose (Dextrose 5% In Water 1000 Ml) 1,000 mls @ 0 mls/hr IV .Q0M PRN; Protocol PRN Reason: Hypoglycemia Protocol Sodium Chloride (Sodium Chloride 0.9%) 1,000 mls @ 150 mls/hr IV .Q6H40M [facility] Last Admin: 09/21/18 13:56 Dose: 150 mls/hr Insulin Human Isoph/Insulin Regular (Novolin 70/30 (70/30 Units/Ml) 10 Ml) 27 units SC ACB [facility] Last Admin: 09/21/18 08:08 Dose: 27 units Insulin Human Isoph/Insulin Regular (Novolin 70/30 (70/30 Units/Ml) 10 Ml) 14 units SC Q24H [facility] Lisinopril (Zestril) 5 mg PO DAILY [facility] Last Admin: 09/21/18 11:33 Dose: 5 mg Pantoprazole Sodium (Protonix Inj) 40 mg IVP DAILY [facility] Last Admin: 09/21/18 11:33 Dose: 40 mg Rosuvastatin Calcium (Crestor) 5 mg PO HS SIMONA - Labs Labs: 09/21/18 07:06 09/21/18 07:06 PT 9.1 SECONDS (9.7-12.2) L 09/20/18 21:32 INR 0.8 09/20/18 21:32 APTT 23.3 SECONDS (21-34) 09/20/18 21:32 - Additional Findings Additional findings: - Constitutional Appears: Non-toxic, No Acute Distress - Head Exam Head Exam: ATRAUMATIC, NORMOCEPHALIC - Eye Exam Eye Exam: EOMI, PERRL. - ENT Exam ENT Exam: Dry nasal turbinates, fissured tongue - Neck Exam Neck exam: Negative for: Lymphadenopathy, Thyromegaly - Respiratory Exam Respiratory Exam: Clear to Auscultation Bilateral. absent: Rales, Wheezes, Rhonchi, Respiratory distress - Cardiovascular Exam Cardiovascular Exam: RRR, +S1, +S2 - GI/Abdominal Exam GI & Abdominal Exam: Soft. absent: Firm, Rigid, Tenderness - Extremities Exam Extremities exam: Positive for: full ROM, normal capillary refill, pedal pulses present. Negative for: pedal edema Additional comments: left first toe with dressing; c/d/i; no signs of active bleeding or drainage. Minimally tender to palpation - Neurological Exam Neurological exam: Alert, Oriented x3 - Psychiatric Exam Psychiatric exam: Normal Affect, Normal Mood - Skin Skin Exam: Normal Color, Warm Assessment and Plan - Assessment and Plan (Free Text) Assessment: This is a 53 year old female with PMH of IDDM2 with complications, HTN, HLD, CAD with stent, hx endarterectomy, asthma who presents with uncontrolled blood sugars and nonhealing left large toe ulceration. Plan: IDDM2, uncontrolled Pt started on novolin 70/30 27 units in the morning with breakfast at 8 am once daily and 14 units at 1930 once daily Hypoglycemic protocol Crestor 5 HS Lisinopril 5mg daily HgbA1c is 15 Betahydroxybutyrate is normal at 0.18 TSH is normal at 3.39 1x2cm Ulcer, acute on chronic Wound care consulted Recommending to start medihoney then covering with thick bulky dressing to be changed every day. Left lower extremity CT: shows area of edema possible phlegmon vs abscess. no obvious signs of osteomyeltis. chronic changes s/p amputations. Tylenol PRN pain/fever Podiatry, Dr. Gallagher, consulted. F/u left lower extremity MRI with and without contrast Maintenance NS IVF at 130 mL/hr HTN, chronic Continue lisinopril 5 mg po daily Hx CAD with stent Hx endartectomy Crestor 5 HS ASA 81mg daily Pt is on DANIELLE-i as above Pt is not on betablocker as she has uncontrolled diabetes and this will mask episodes of hypoglycemia Hx of HLD Lipid panel shows TG/CHL/LDL/HDL is 228/291/141/40 Crestor as above Hx Asthma-chronic Duonebs q6 PRN PPX Heparin 5000u q8 PTX 40 daily Diabetic HHD Case discussed with Dr. Angel Garcia PGY1 <Williams Ng - Last Filed: 09/21/18 18:36> Objective - Vital Signs/Intake and Output Vital Signs (last 24 hours): Temp Pulse Resp BP Pulse Ox 98.4 F 64 20 101/56 L 97 09/21/18 16:00 09/21/18 16:00 09/21/18 16:00 09/21/18 16:00 09/21/18 16:00 Intake and Output: 09/21/18 09/21/18 06:59 18:59 Intake Total 1710 Output Total 2 Balance 1708 - Medications Medications: Current Medications Acetaminophen (Tylenol 325mg Tab) 650 mg PO Q6 PRN PRN Reason: fever/pain Last Admin: 09/21/18 11:32 Dose: 650 mg Albuterol/Ipratropium (Duoneb 3 Mg/0.5 Mg (3 Ml) Ud) 3 ml INH RQ6 PRN PRN Reason: Shortness of Breath Aspirin (Aspirin Chewable) 81 mg PO DAILY [facility] Last Admin: 09/21/18 11:32 Dose: 81 mg Bacitracin (Bacitracin) 1 ea TOP BID [facility] Last Admin: 09/21/18 18:00 Dose: Not Given Dextrose (Dextrose 50% Inj) 0 ml IV STAT PRN; Protocol PRN Reason: Hypoglycemia Protocol Dextrose (Glutose 15) 0 gm PO ONCE PRN; Protocol PRN Reason: Hypoglycemia Protocol Glucagon (Glucagen Diagnostic Kit) 0 mg IM STAT PRN; Protocol PRN Reason: Hypoglycemia Protocol Heparin Sodium (Porcine) (Heparin) 5,000 units SC Q12 [facility] Last Admin: 09/21/18 11:33 Dose: 5,000 units Dextrose (Dextrose 5% In Water 1000 Ml) 1,000 mls @ 0 mls/hr IV .Q0M PRN; Protocol PRN Reason: Hypoglycemia Protocol Sodium Chloride (Sodium Chloride 0.9%) 1,000 mls @ 130 mls/hr IV .Q7H42M [facility] Last Admin: 09/21/18 15:58 Dose: Not Given Insulin Human Isoph/Insulin Regular (Novolin 70/30 (70/30 Units/Ml) 10 Ml) 27 units SC ACB [facility] Last Admin: 09/21/18 08:08 Dose: 27 units Insulin Human Isoph/Insulin Regular (Novolin 70/30 (70/30 Units/Ml) 10 Ml) 14 units SC Q24H [facility] Lisinopril (Zestril) 5 mg PO DAILY [facility] Last Admin: 09/21/18 11:33 Dose: 5 mg Pantoprazole Sodium (Protonix Inj) 40 mg IVP DAILY [facility] Last Admin: 09/21/18 11:33 Dose: 40 mg Rosuvastatin Calcium (Crestor) 5 mg PO HS [facility] - Labs Labs: 09/21/18 07:06 09/21/18 07:06 PT 9.1 SECONDS (9.7-12.2) L 09/20/18 21:32 INR 0.8 09/20/18 21:32 APTT 23.3 SECONDS (21-34) 09/20/18 21:32 Attending/Attestation - Attestation I have personally seen and examined this patient.: Yes I have fully participated in the care of the patient.: Yes I have reviewed all pertinent clinical information, including history, physical exam and plan: Yes Notes (Text): 09/21/18 18:34 Patient was seen together with resident Dr. Garcia. Care of this patient was gone over in detail with Dr. Garcia. F/U MRI Left Foot to r/o Osteomyelitis Patient stated that she is aware of how to use/administer insulin. Disposition: As long as blood glucose has declined and osteomyelitis of the Left Big Toe is ruled out, then will discharge patient. Williams Ng D.O.
--- NOTE | 2018-09-21 14:58 | CP.PCM.CON ---
History of Present Illness - History of Present Illness History of Present Illness: Podiatry Consult Note- Dr. Gallagher 53 F with PMH of DM, HTN, high cholesterol, asthma, gastritis, migraine seen and evaluated at bedside for left foot wound. Patient reports that she saw the wound on the bottom of her left foot for 3 weeks. Reports she has been cleaning the wound everyday with alcohol and peroxide. States that she did not see improvement to the wound. Denies trauma or falling. Patient has a history of previous foot amputation. Reports the reasoning for her amputation was because of gangrene and uncontrolled DM. Denies nausea, fever, shortness of breath, chest pains or chills. PMH: DM, HTN, high cholesterol, asthma, gastritis, migraine ALL: NKDA PSH: 3 c sections, cataract surgery, left 2nd, 3rd, 5th amputation, carotid endartectomy, dermal graft, cardiac cath SH: denies smoking, drinking or illicit drug use FHx: Mother Ca-unknown, Grandmother diabetes Past Patient History - Infectious Disease Hx of Infectious Diseases: None - Tetanus Immunizations Tetanus Immunization: Unknown - Past Medical History & Family History Past Medical History?: Yes - Past Social History Smoking Status: Never Smoked - CARDIAC Hx Hypercholesterolemia: Yes Hx Hypertension: Yes - PULMONARY Hx Asthma: Yes Hx Chronic Obstructive Pulmonary Disease (COPD): Yes - NEUROLOGICAL Hx Migraine: Yes - HEENT Hx HEENT Problems: No - RENAL Hx Chronic Kidney Disease: No - ENDOCRINE/METABOLIC Hx Endocrine Disorders: Yes Hx Diabetes Mellitus Type 2: Yes - HEMATOLOGICAL/ONCOLOGICAL Hx Blood Disorders: No Other/Comment: Family members have a history of cancer and HIV. - INTEGUMENTARY Hx Dermatological Problems: No Hx Cellulitis: ( ) - MUSCULOSKELETAL/RHEUMATOLOGICAL Hx Arthritis: Yes - GASTROINTESTINAL Hx Gastritis: Yes - GENITOURINARY/GYNECOLOGICAL Hx Genitourinary Disorders: No - PSYCHIATRIC Hx Substance Use: No - SURGICAL HISTORY Hx Carotid Endarterectomy: Yes - ANESTHESIA Hx Anesthesia: Yes Hx Anesthesia Reactions: No Hx Malignant Hyperthermia: No Meds Allergies/Adverse Reactions: Allergies Allergy/AdvReac Type Severity Reaction Status Date / Time No Known Allergies Allergy Verified 09/20/18 21:11 - Medications Medications: Current Medications Acetaminophen (Tylenol 325mg Tab) 650 mg PO Q6 PRN PRN Reason: fever/pain Last Admin: 09/21/18 11:32 Dose: 650 mg Albuterol/Ipratropium (Duoneb 3 Mg/0.5 Mg (3 Ml) Ud) 3 ml INH RQ6 PRN PRN Reason: Shortness of Breath Aspirin (Aspirin Chewable) 81 mg PO DAILY [facility] Last Admin: 09/21/18 11:32 Dose: 81 mg Bacitracin (Bacitracin) 1 ea TOP BID [facility] Last Admin: 09/21/18 12:08 Dose: Not Given Dextrose (Dextrose 50% Inj) 0 ml IV STAT PRN; Protocol PRN Reason: Hypoglycemia Protocol Dextrose (Glutose 15) 0 gm PO ONCE PRN; Protocol PRN Reason: Hypoglycemia Protocol Glucagon (Glucagen Diagnostic Kit) 0 mg IM STAT PRN; Protocol PRN Reason: Hypoglycemia Protocol Heparin Sodium (Porcine) (Heparin) 5,000 units SC Q12 [facility] Last Admin: 09/21/18 11:33 Dose: 5,000 units Dextrose (Dextrose 5% In Water 1000 Ml) 1,000 mls @ 0 mls/hr IV .Q0M PRN; Protocol PRN Reason: Hypoglycemia Protocol Sodium Chloride (Sodium Chloride 0.9%) 1,000 mls @ 150 mls/hr IV .Q6H40M [facility] Last Admin: 09/21/18 13:56 Dose: 150 mls/hr Insulin Human Isoph/Insulin Regular (Novolin 70/30 (70/30 Units/Ml) 10 Ml) 27 units SC ACB [facility] Last Admin: 09/21/18 08:08 Dose: 27 units Insulin Human Isoph/Insulin Regular (Novolin 70/30 (70/30 Units/Ml) 10 Ml) 14 units SC Q24H [facility] Lisinopril (Zestril) 5 mg PO DAILY [facility] Last Admin: 09/21/18 11:33 Dose: 5 mg Pantoprazole Sodium (Protonix Inj) 40 mg IVP DAILY [facility] Last Admin: 09/21/18 11:33 Dose: 40 mg Rosuvastatin Calcium (Crestor) 5 mg PO HS [facility] Physical Exam - Constitutional Appears: Well, Non-toxic, No Acute Distress - Extremities Exam Extremities exam: Negative for: calf tenderness Additional comments: VASC: DP and PT 2/4 bilaterally, CFT to digits WNL, temperature WNL ORTHO: no pain with palpation to ulceration site, MM is 5/5 in all four compartments, amputated digits left foot 2,3,5 NEURO: gross and protective sensation diminished DERM: wound on plantar aspect of left foot at left hallux measuring approximately 1.8 x 1.2 x 0.2 cm, wound base is mainly fibrotic, no purulence, no erythema, no drainage, and no odor. Wound edges dry and intact - Neurological Exam Neurological exam: Alert, Oriented x3 Results - Vital Signs Recent Vital Signs: Last Vital Signs Temp 98.1 F 09/21/18 07:42 Pulse 67 09/21/18 07:42 Resp 20 09/21/18 07:42 BP 117/72 09/21/18 07:42 Pulse Ox 97 09/21/18 07:42 - Labs Result Diagrams: 09/23/18 06:47 09/23/18 06:47 Labs: Laboratory Results - last 24 hr 09/20/18 09/20/18 09/20/18 21:15 21:16 21:32 WBC 4.2 L RBC 4.52 Hgb 12.7 Hct 37.3 MCV 82.4 D MCH 28.1 MCHC 34.1 RDW 13.8 Plt Count 186 MPV 9.9 Neut % (Auto) 63.5 Lymph % (Auto) 29.9 [place] % (Auto) 5.5 Eos % (Auto) 0.8 Baso % (Auto) 0.3 Neut # (Auto) 2.7 Lymph # (Auto) 1.3 [place] # (Auto) 0.2 Eos # (Auto) 0.0 Baso # (Auto) 0.0 PT INR APTT pO2 VBG pH VBG pCO2 VBG HCO3 VBG Total CO2 VBG Base Excess VBG Potassium Sodium Chloride Glucose Lactate Crit Value Called To Crit Value Called By Crit Value Read Back Blood Gas Notified Time Potassium Carbon Dioxide Anion Gap BUN Creatinine Est GFR ( Amer) Est GFR (Non-Af Amer) POC Glucose (mg/dL) 494 H* 500 H* Random Glucose Hemoglobin A1c Calcium Phosphorus Magnesium Total Bilirubin AST ALT Alkaline Phosphatase Total Protein Albumin Globulin Albumin/Globulin Ratio Triglycerides Cholesterol LDL Cholesterol Direct HDL Cholesterol TSH 3rd Generation Venous Blood Potassium B-Hydroxybutyrate 09/20/18 09/20/18 09/20/18 21:32 21:32 21:32 WBC RBC Hgb Hct MCV MCH MCHC RDW Plt Count MPV Neut % (Auto) Lymph % (Auto) [place] % (Auto) Eos % (Auto) Baso % (Auto) Neut # (Auto) Lymph # (Auto) [place] # (Auto) Eos # (Auto) Baso # (Auto) PT 9.1 L INR 0.8 APTT 23.3 pO2 36 VBG pH 7.36 VBG pCO2 48 VBG HCO3 24.9 VBG Total CO2 28.6 H VBG Base Excess 1.0 VBG Potassium 6.8 H* Sodium 133 134.0 Chloride 97 L 101.0 Glucose 520 H* Lactate 1.8 Crit Value Called To Kush vidal md Crit Value Called By Nara Crit Value Read Back Y Blood Gas Notified Time 2138 Potassium 5.4 H Carbon Dioxide 25 Anion Gap 17 BUN 15 Creatinine 0.6 L Est GFR ( Amer) > 60 Est GFR (Non-Af Amer) > 60 POC Glucose (mg/dL) Random Glucose 499 H* D Hemoglobin A1c Calcium 9.1 Phosphorus Magnesium Total Bilirubin 1.3 AST 53 H D ALT 12 Alkaline Phosphatase 115 Total Protein 9.1 H Albumin 4.5 Globulin 4.5 H Albumin/Globulin Ratio 1.0 Triglycerides Cholesterol LDL Cholesterol Direct HDL Cholesterol TSH 3rd Generation Venous Blood Potassium 6.8 H* B-Hydroxybutyrate 0.18 09/20/18 09/20/18 09/21/18 21:32 23:37 00:51 WBC RBC Hgb Hct MCV MCH MCHC RDW Plt Count MPV Neut % (Auto) Lymph % (Auto) [place] % (Auto) Eos % (Auto) Baso % (Auto) Neut # (Auto) Lymph # (Auto) [place] # (Auto) Eos # (Auto) Baso # (Auto) PT INR APTT pO2 VBG pH VBG pCO2 VBG HCO3 VBG Total CO2 VBG Base Excess VBG Potassium Sodium Chloride Glucose Lactate Crit Value Called To Crit Value Called By Crit Value Read Back Blood Gas Notified Time Potassium Carbon Dioxide Anion Gap BUN Creatinine Est GFR ( Amer) Est GFR (Non-Af Amer) POC Glucose (mg/dL) 437 H* 235 H Random Glucose Hemoglobin A1c 15.0 H Calcium Phosphorus Magnesium Total Bilirubin AST ALT Alkaline Phosphatase Total Protein Albumin Globulin Albumin/Globulin Ratio Triglycerides Cholesterol LDL Cholesterol Direct HDL Cholesterol TSH 3rd Generation Venous Blood Potassium B-Hydroxybutyrate 09/21/18 09/21/18 09/21/18 07:03 07:06 07:06 WBC 3.9 L RBC 4.15 Hgb 11.4 Hct 34.0 MCV 82.0 MCH 27.6 MCHC 33.7 RDW 14.1 Plt Count 184 MPV 9.6 Neut % (Auto) 61.0 Lymph % (Auto) 31.9 [place] % (Auto) 5.9 Eos % (Auto) 1.1 Baso % (Auto) 0.1 Neut # (Auto) 2.4 Lymph # (Auto) 1.3 [place] # (Auto) 0.2 Eos # (Auto) 0.0 Baso # (Auto) 0.0 PT INR APTT pO2 VBG pH VBG pCO2 VBG HCO3 VBG Total CO2 VBG Base Excess VBG Potassium Sodium 136 Chloride 107 Glucose Lactate Crit Value Called To Crit Value Called By Crit Value Read Back Blood Gas Notified Time Potassium 3.8 Carbon Dioxide 22 Anion Gap 11 BUN 12 Creatinine 0.4 L Est GFR ( Amer) > 60 Est GFR (Non-Af Amer) > 60 POC Glucose (mg/dL) 279 H Random Glucose 280 H D Hemoglobin A1c Calcium 7.9 L Phosphorus 2.8 Magnesium 1.6 Total Bilirubin 0.4 AST 23 ALT 19 Alkaline Phosphatase 96 Total Protein 6.6 Albumin 3.3 L D Globulin 3.3 Albumin/Globulin Ratio 1.0 Triglycerides Cholesterol LDL Cholesterol Direct HDL Cholesterol TSH 3rd Generation Venous Blood Potassium B-Hydroxybutyrate 09/21/18 09/21/18 07:06 11:07 WBC RBC Hgb Hct MCV MCH MCHC RDW Plt Count MPV Neut % (Auto) Lymph % (Auto) [place] % (Auto) Eos % (Auto) Baso % (Auto) Neut # (Auto) Lymph # (Auto) [place] # (Auto) Eos # (Auto) Baso # (Auto) PT INR APTT pO2 VBG pH VBG pCO2 VBG HCO3 VBG Total CO2 VBG Base Excess VBG Potassium Sodium Chloride Glucose Lactate Crit Value Called To Crit Value Called By Crit Value Read Back Blood Gas Notified Time Potassium Carbon Dioxide Anion Gap BUN Creatinine Est GFR ( Amer) Est GFR (Non-Af Amer) POC Glucose (mg/dL) 325 H Random Glucose Hemoglobin A1c Calcium Phosphorus Magnesium Total Bilirubin AST ALT Alkaline Phosphatase Total Protein Albumin Globulin Albumin/Globulin Ratio Triglycerides 228 H D Cholesterol 241 H LDL Cholesterol Direct 141 H HDL Cholesterol 40 TSH 3rd Generation 3.39 Venous Blood Potassium B-Hydroxybutyrate Assessment & Plan - Assessment and Plan (Free Text) Assessment: 53 F with PMH of DM, HTN, high cholesterol, asthma, gastritis, migraine seen and evaluated at bedside for left foot wound, r/o OM Plan: Patient seen and examined Discussed plan with attending Dr. Gallagher CT reviewed f/u MRI to r/o OM Local wound care was performed by Wound Care nurse with [facility] Will continue to follow patient while in house
[2018-09-21] MEDS ORDERED: (Novolin 70/30) NPH/Regular 70/30 Units/ml 10 ml vial SC SCH (19:30)
[2018-09-21] MEDS ORDERED: (Lantus) Insulin Glargine, Recombinant SC SCH (22:00)
[2018-09-22 08:21] LABS: BASO % 0.1 % (0.0-2.0); EOS % 0.6 % (0.0-4.0); HEMOGLOBIN 11.6 g/dL (11.0-16.0); LYMPH # 1.2 K/uL (1.0-4.3); LYMPH % 34.1 % (20.0-40.0); MEAN CELL VOLUME 82.1 fL (81.0-99.0); MEAN CORPUSCULAR HEMOGLOBIN 27.7 pg (27.0-31.0); MEAN CORPUSCULAR HGB CONC 33.7 g/dL (33.0-37.0); MEAN PLATELET VOLUME 9.5 fL (7.2-11.7); MONO # 0.2 K/uL (0.0-0.8); MONO % 5.1 % (0.0-10.0); NEUT % 60.1 % (50.0-75.0); NRBC % 0.1 % (0.0-2.0); RBC 4.21 Mil/uL (3.80-5.20); RED CELL DISTRIBUTION WIDTH 14.1 % (11.5-14.5); WHITE BLOOD COUNT 3.4 K/uL (4.8-10.8)
[2018-09-22] MEDS: (Novolin 70/30) NPH/Regular 70/30 Units/ml 10 ml vial SC SCH ×2 (08:21→19:20)
[2018-09-22 08:35] LABS: ALB/GLOB RATIO 0.9 (1.0-2.1); ALBUMIN 3.3 g/dL (3.5-5.0); ALT/SGPT 36 U/L (9-52); AST/SGOT 41 U/L (14-36); BLOOD UREA NITROGEN 10 mg/dL (7-17); CALCIUM 8.4 mg/dl (8.6-10.4); GFR NON-AFRICAN AMERICAN > 60
--- NOTE | 2018-09-22 08:59 | CP.PCM.PN ---
<Alfonzo Garcia - Last Filed: 09/22/18 16:21> Subjective - Date & Time of Evaluation Date of Evaluation: 09/22/18 Time of Evaluation: 09:30 - Subjective Subjective: PGY1 medicine progress note for Dr. Angel Ng Pt seen and examined at bedside. Pt is resting comfortably. No acute complaints. Denies fever, chills, chest pain, sob, abdominal pain, n/v/d, headache, dizziness, lightheadedness, visual changes. Objective - Vital Signs/Intake and Output Vital Signs (last 24 hours): Temp Pulse Resp BP Pulse Ox 97.6 F 73 20 124/76 97 09/22/18 07:50 09/22/18 07:50 09/22/18 07:50 09/22/18 07:50 09/22/18 07:50 Intake and Output: 09/22/18 09/22/18 06:59 18:59 Intake Total 2620 Balance 2620 - Medications Medications: Current Medications Acetaminophen (Tylenol 325mg Tab) 650 mg PO Q6 PRN PRN Reason: fever/pain Last Admin: 09/21/18 11:32 Dose: 650 mg Albuterol/Ipratropium (Duoneb 3 Mg/0.5 Mg (3 Ml) Ud) 3 ml INH RQ6 PRN PRN Reason: Shortness of Breath Aspirin (Aspirin Chewable) 81 mg PO DAILY [facility] Last Admin: 09/21/18 11:32 Dose: 81 mg Bacitracin (Bacitracin) 1 ea TOP BID [facility] Last Admin: 09/21/18 19:36 Dose: 1 ea Dextrose (Dextrose 50% Inj) 0 ml IV STAT PRN; Protocol PRN Reason: Hypoglycemia Protocol Dextrose (Glutose 15) 0 gm PO ONCE PRN; Protocol PRN Reason: Hypoglycemia Protocol Glucagon (Glucagen Diagnostic Kit) 0 mg IM STAT PRN; Protocol PRN Reason: Hypoglycemia Protocol Heparin Sodium (Porcine) (Heparin) 5,000 units SC Q12 [facility] Last Admin: 09/21/18 21:33 Dose: 5,000 units Dextrose (Dextrose 5% In Water 1000 Ml) 1,000 mls @ 0 mls/hr IV .Q0M PRN; Protocol PRN Reason: Hypoglycemia Protocol Sodium Chloride (Sodium Chloride 0.9%) 1,000 mls @ 130 mls/hr IV .Q7H42M [facility] Last Admin: 09/21/18 15:58 Dose: Not Given Insulin Human Isoph/Insulin Regular (Novolin 70/30 (70/30 Units/Ml) 10 Ml) 27 units SC ACB [facility] Last Admin: 09/22/18 08:21 Dose: 27 units Insulin Human Isoph/Insulin Regular (Novolin 70/30 (70/30 Units/Ml) 10 Ml) 14 units SC Q24H [facility] Last Admin: 09/21/18 19:34 Dose: 14 units Lisinopril (Zestril) 5 mg PO DAILY [facility] Last Admin: 09/21/18 11:33 Dose: 5 mg Pantoprazole Sodium (Protonix Inj) 40 mg IVP DAILY [facility] Last Admin: 09/21/18 11:33 Dose: 40 mg Rosuvastatin Calcium (Crestor) 5 mg PO HS [facility] Last Admin: 09/21/18 21:33 Dose: 5 mg - Labs Labs: 09/22/18 08:14 09/22/18 08:14 PT 9.1 SECONDS (9.7-12.2) L 09/20/18 21:32 INR 0.8 09/20/18 21:32 APTT 23.3 SECONDS (21-34) 09/20/18 21:32 - Additional Findings Additional findings: - Constitutional Appears: Non-toxic, No Acute Distress - Head Exam Head Exam: ATRAUMATIC, NORMOCEPHALIC - Eye Exam Eye Exam: EOMI, PERRL. - ENT Exam ENT Exam: Dry nasal turbinates, fissured tongue - Neck Exam Neck exam: Negative for: Lymphadenopathy, Thyromegaly - Respiratory Exam Respiratory Exam: Clear to Auscultation Bilateral. absent: Rales, Wheezes, Rhonchi, Respiratory distress - Cardiovascular Exam Cardiovascular Exam: RRR, +S1, +S2 - GI/Abdominal Exam GI & Abdominal Exam: Soft. absent: Firm, Rigid, Tenderness - Extremities Exam Extremities exam: Positive for: full ROM, normal capillary refill, pedal pulses present. Negative for: pedal edema Additional comments: left first toe with dressing; c/d/i; no signs of active bleeding or drainage. Nontender - Neurological Exam Neurological exam: Alert, Oriented x3 - Psychiatric Exam Psychiatric exam: Normal Affect, Normal Mood - Skin Skin Exam: Normal Color, Warm Assessment and Plan - Assessment and Plan (Free Text) Assessment: This is a 53 year old female with PMH of IDDM2 with complications, HTN, HLD, CAD with stent, hx endarterectomy, asthma who presents with uncontrolled blood sugars and nonhealing left large toe ulceration. Plan: IDDM2, uncontrolled Pt started on novolin 70/30 27 units in the morning with breakfast at 8 am once daily and 14 units at 1930 once daily Hypoglycemic protocol Crestor 5 HS Lisinopril 5mg daily HgbA1c is 15 Betahydroxybutyrate is normal at 0.18 TSH is normal at 3.39 1x2cm Ulcer, acute on chronic Wound care consulted Recommending to start medihoney then covering with thick bulky dressing to be changed every day. Left lower extremity CT: shows area of edema possible phlegmon vs abscess. no obvious signs of osteomyeltis. chronic changes s/p amputations. Tylenol PRN pain/fever Podiatry, Dr. Gallagher, consulted. F/u left lower extremity MRI with and without contrast. To be done 09/23/18 Maintenance NS IVF at 130 mL/hr HTN, chronic Continue lisinopril 5 mg po daily Hx CAD with stent Hx endartectomy Crestor 5 HS ASA 81mg daily Pt is on DANIELLE-i as above Pt is not on betablocker as she has uncontrolled diabetes on insulin and this will mask episodes of hypoglycemia Hx of HLD Lipid panel shows TG/CHL/LDL/HDL is 228/291/141/40 Crestor as above Hx Asthma-chronic Duonebs q6 PRN PPX Heparin 5000u q8 PTX 40 daily Diabetic HHD Case discussed with Dr. Angel Garcia PGY1 <Williams Ng - Last Filed: 09/26/18 12:46> Objective - Vital Signs/Intake and Output Vital Signs (last 24 hours): Temp Pulse Resp BP Pulse Ox 98.2 F 75 20 112/74 98 09/26/18 07:00 09/26/18 07:00 09/26/18 07:00 09/26/18 07:00 09/26/18 07:00 Intake and Output: 09/26/18 09/26/18 06:59 18:59 Intake Total 400 Balance 400 - Medications Medications: Current Medications Acetaminophen (Tylenol 325mg Tab) 650 mg PO Q6 PRN PRN Reason: fever/pain Last Admin: 09/24/18 06:30 Dose: 650 mg Albuterol/Ipratropium (Duoneb 3 Mg/0.5 Mg (3 Ml) Ud) 3 ml INH RQ6 PRN PRN Reason: Shortness of Breath Aspirin (Aspirin Chewable) 81 mg PO DAILY [facility] Last Admin: 09/26/18 10:01 Dose: 81 mg Dextrose (Dextrose 50% Inj) 0 ml IV STAT PRN; Protocol PRN Reason: Hypoglycemia Protocol Dextrose (Glutose 15) 0 gm PO ONCE PRN; Protocol PRN Reason: Hypoglycemia Protocol Glucagon (Glucagen Diagnostic Kit) 0 mg IM STAT PRN; Protocol PRN Reason: Hypoglycemia Protocol Heparin Sodium (Porcine) (Heparin) 5,000 units SC Q12 [facility] Last Admin: 09/26/18 10:01 Dose: 5,000 units Dextrose (Dextrose 5% In Water 1000 Ml) 1,000 mls @ 0 mls/hr IV .Q0M PRN; Protocol PRN Reason: Hypoglycemia Protocol Ceftriaxone Sodium 2 gm/ (Sodium Chloride) 100 mls @ 100 mls/hr IVPB Q24H [facility]; Protocol Stop: 10/31/18 12:01 Last Admin: 09/26/18 12:39 Dose: 100 mls/hr Insulin Human Isoph/Insulin Regular (Novolin 70/30 (70/30 Units/Ml) 10 Ml) 45 units SC ACB [facility] Last Admin: 09/26/18 08:21 Dose: 45 units Insulin Human Isoph/Insulin Regular (Novolin 70/30 (70/30 Units/Ml) 10 Ml) 23 units SC Q24H [facility] Last Admin: 09/25/18 19:21 Dose: 23 units Lactobacillus Acidophilus (Lactobacillus) 1 cap PO Q12H [facility] Last Admin: 09/26/18 05:59 Dose: 1 cap Lisinopril (Zestril) 5 mg PO DAILY [facility] Last Admin: 09/26/18 10:01 Dose: 5 mg Pantoprazole Sodium (Protonix Ec Tab) 40 mg PO DAILY [facility] Last Admin: 09/26/18 10:01 Dose: 40 mg Rosuvastatin Calcium (Crestor) 5 mg PO HS [facility] Last Admin: 09/25/18 21:52 Dose: 5 mg - Labs Labs: 09/26/18 07:30 09/26/18 07:30 PT 9.1 SECONDS (9.7-12.2) L 09/20/18 21:32 INR 0.8 09/20/18 21:32 APTT 23.3 SECONDS (21-34) 09/20/18 21:32 Attending/Attestation - Attestation I have personally seen and examined this patient.: Yes I have fully participated in the care of the patient.: Yes I have reviewed all pertinent clinical information, including history, physical exam and plan: Yes Notes (Text): 09/26/18 12:46 This is a late entry. Care of this patient was gone over in detail with resident Dr. Garcia. Williams Ng D.O.
[2018-09-22] MEDS: Sodium Chloride 0.9% 1,000 ML IV SCH ×4 (10:11→21:30)
[2018-09-22] MEDS: Bacitracin 500 Units/gm Oint Foilpak UD TOP SCH ×2 (10:14→18:00)
--- NOTE | 2018-09-22 12:08 | CARD ---
APPROVED REPORT Date of service: 09/21/2018 EKG Measurement Heart [id number] <Conclusion> Normal sinus rhythm Left bundle branch block Abnormal ECG
[2018-09-23] MEDS: Sodium Chloride 0.9% 1,000 ML IV SCH (06:30)
[2018-09-23 07:10] LABS: BASO % 0.2 % (0.0-2.0); EOS % 0.9 % (0.0-4.0); LYMPH # 1.2 K/uL (1.0-4.3); LYMPH % 34.6 % (20.0-40.0); MEAN CELL VOLUME 82.5 fL (81.0-99.0); MEAN CORPUSCULAR HEMOGLOBIN 27.8 pg (27.0-31.0); MEAN CORPUSCULAR HGB CONC 33.7 g/dL (33.0-37.0); MEAN PLATELET VOLUME 9.5 fL (7.2-11.7); MONO # 0.2 K/uL (0.0-0.8); MONO % 6.8 % (0.0-10.0); NEUT % 57.5 % (50.0-75.0); NRBC % 0.1 % (0.0-2.0); RBC 3.94 Mil/uL (3.80-5.20); RED CELL DISTRIBUTION WIDTH 13.9 % (11.5-14.5); WHITE BLOOD COUNT 3.5 K/uL (4.8-10.8)
[2018-09-23 07:14] LABS: ALB/GLOB RATIO 0.9 (1.0-2.1); ALT/SGPT 43 U/L (9-52); AST/SGOT 47 U/L (14-36); BLOOD UREA NITROGEN 12 mg/dL (7-17); CALCIUM 8.6 mg/dl (8.6-10.4); GFR NON-AFRICAN AMERICAN > 60
[2018-09-23] MEDS: (Novolin 70/30) NPH/Regular 70/30 Units/ml 10 ml vial SC SCH ×2 (07:53→20:14)
[2018-09-23] MEDS ORDERED: Gadodiamide 287 mg/ml 20 ml IV ONE (09:15)
[2018-09-23] MEDS: Bacitracin 500 Units/gm Oint Foilpak UD TOP SCH ×2 (10:03→18:43)
--- NOTE | 2018-09-23 12:20 | CP.PCM.PN ---
<Oseas Sahu - Last Filed: 09/23/18 12:12> Subjective - Date & Time of Evaluation Date of Evaluation: 09/23/18 Time of Evaluation: 12:13 - Subjective Subjective: PGY3 note for Dr Ng's service Pt seen and examined at bedside. Nursing reports pt afebrile overnight and BG is better controlled. Patient found resting in bed in 364B. She is for MRI this AM. Denies acute complaints - no pain at ulcer site on left foot. Further denies fever, chills, chest pain, sob, abdominal pain, n/v/d, headache, dizziness, lightheadedness, visual changes. Objective - Vital Signs/Intake and Output Vital Signs (last 24 hours): Temp Pulse Resp BP Pulse Ox 97.5 F L 68 20 133/78 98 09/23/18 08:04 09/23/18 08:04 09/23/18 08:04 09/23/18 08:04 09/23/18 08:04 Intake and Output: 09/23/18 09/23/18 06:59 18:59 Intake Total 2540 Balance 2540 - Medications Medications: Current Medications Acetaminophen (Tylenol 325mg Tab) 650 mg PO Q6 PRN PRN Reason: fever/pain Last Admin: 09/23/18 05:40 Dose: 650 mg Albuterol/Ipratropium (Duoneb 3 Mg/0.5 Mg (3 Ml) Ud) 3 ml INH RQ6 PRN PRN Reason: Shortness of Breath Aspirin (Aspirin Chewable) 81 mg PO DAILY [facility] Last Admin: 09/23/18 10:03 Dose: 81 mg Bacitracin (Bacitracin) 1 ea TOP BID [facility] Last Admin: 09/23/18 10:03 Dose: 1 ea Dextrose (Dextrose 50% Inj) 0 ml IV STAT PRN; Protocol PRN Reason: Hypoglycemia Protocol Dextrose (Glutose 15) 0 gm PO ONCE PRN; Protocol PRN Reason: Hypoglycemia Protocol Glucagon (Glucagen Diagnostic Kit) 0 mg IM STAT PRN; Protocol PRN Reason: Hypoglycemia Protocol Heparin Sodium (Porcine) (Heparin) 5,000 units SC Q12 [facility] Last Admin: 09/23/18 10:03 Dose: 5,000 units Dextrose (Dextrose 5% In Water 1000 Ml) 1,000 mls @ 0 mls/hr IV .Q0M PRN; Protocol PRN Reason: Hypoglycemia Protocol Sodium Chloride (Sodium Chloride 0.9%) 1,000 mls @ 130 mls/hr IV .Q7H42M [facility] Last Admin: 09/23/18 06:30 Dose: 130 mls/hr Insulin Human Isoph/Insulin Regular (Novolin 70/30 (70/30 Units/Ml) 10 Ml) 45 units SC ACB [facility] Last Admin: 09/23/18 07:53 Dose: 45 units Insulin Human Isoph/Insulin Regular (Novolin 70/30 (70/30 Units/Ml) 10 Ml) 23 units SC Q24H [facility] Last Admin: 09/22/18 19:20 Dose: 23 units Lisinopril (Zestril) 5 mg PO DAILY [facility] Last Admin: 09/23/18 10:03 Dose: 5 mg Pantoprazole Sodium (Protonix Inj) 40 mg IVP DAILY [facility] Last Admin: 09/23/18 10:03 Dose: 40 mg Rosuvastatin Calcium (Crestor) 5 mg PO HS [facility] Last Admin: 09/22/18 21:45 Dose: 5 mg - Labs Labs: 09/23/18 06:47 09/23/18 06:47 PT 9.1 SECONDS (9.7-12.2) L 09/20/18 21:32 INR 0.8 09/20/18 21:32 APTT 23.3 SECONDS (21-34) 09/20/18 21:32 - Additional Findings Additional findings: - Constitutional Appears: Non-toxic, No Acute Distress - Head Exam Head Exam: ATRAUMATIC, NORMOCEPHALIC - Eye Exam Eye Exam: EOMI, PERRL. - ENT Exam ENT Exam: Dry nasal turbinates, fissured tongue - Neck Exam Neck exam: Negative for: Lymphadenopathy, Thyromegaly - Respiratory Exam Respiratory Exam: Clear to Auscultation Bilateral. absent: Rales, Wheezes, Rhonchi, Respiratory distress - Cardiovascular Exam Cardiovascular Exam: RRR, +S1, +S2 - GI/Abdominal Exam GI & Abdominal Exam: Soft. absent: Firm, Rigid, Tenderness - Extremities Exam Extremities exam: Positive for: full ROM, normal capillary refill, pedal pulses present. Negative for: pedal edema Additional comments: left first toe with fresh dressing; c/d/i; no signs of active bleeding or drainage. 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 Plan: IDDM2, uncontrolled Insulin regimen: Novolin 70/30 45 units in the morning with breakfast at 8 am once daily and 23 units at 1930 once daily Hypoglycemic protocol Crestor 5 HS Lisinopril 5mg daily HgbA1c is 15 Betahydroxybutyrate is normal at 0.18 TSH is normal at 3.39 1x2cm Right Pedal Ulcer Status: Acute on chronic Left lower extremity CT: shows area of edema possible phlegmon vs abscess. no obvious signs of osteomyeltis. chronic changes s/p amputations. Wound care consulted :Recommending to start medihoney then covering with thick bulky dressing to be changed every day. Podiatry, Dr. Gallagher, consulted. Tylenol PRN pain/fever F/u left lower extremity MRI with and without contrast. HTN (well-controlled - at JNC8 DM goal) Status: chronic Continue lisinopril 5 mg po daily Hx CAD with stent Hx endartectomy Crestor 5 HS ASA 81mg daily Pt is on DANIELLE-i as above Pt is not on betablocker as she has uncontrolled diabetes on insulin and this will mask episodes of hypoglycemia Hx of HLD Lipid panel shows TG/CHL/LDL/HDL is 228/291/141/40 Crestor as above Hx Asthma-chronic Duonebs q6 PRN PPX Heparin 5000u q8 PTX 40 daily Diabetic HHD Disposition: MRI pending; if osteo will require PICC and IV ABX and ID consult; if not PO Cipro/Clindamycin; BG better controlled Case discussed with Dr. Angel Sahu PGY3 <Williams Ng - Last Filed: 09/26/18 13:15> Objective - Vital Signs/Intake and Output Vital Signs (last 24 hours): Temp Pulse Resp BP Pulse Ox 98.2 F 75 20 112/74 98 09/26/18 07:00 09/26/18 07:00 09/26/18 07:00 09/26/18 07:00 09/26/18 07:00 Intake and Output: 09/26/18 09/26/18 06:59 18:59 Intake Total 400 Balance 400 - Medications Medications: Current Medications Acetaminophen (Tylenol 325mg Tab) 650 mg PO Q6 PRN PRN Reason: fever/pain Last Admin: 09/24/18 06:30 Dose: 650 mg Albuterol/Ipratropium (Duoneb 3 Mg/0.5 Mg (3 Ml) Ud) 3 ml INH RQ6 PRN PRN Reason: Shortness of Breath Aspirin (Aspirin Chewable) 81 mg PO DAILY [facility] Last Admin: 09/26/18 10:01 Dose: 81 mg Dextrose (Dextrose 50% Inj) 0 ml IV STAT PRN; Protocol PRN Reason: Hypoglycemia Protocol Dextrose (Glutose 15) 0 gm PO ONCE PRN; Protocol PRN Reason: Hypoglycemia Protocol Glucagon (Glucagen Diagnostic Kit) 0 mg IM STAT PRN; Protocol PRN Reason: Hypoglycemia Protocol Heparin Sodium (Porcine) (Heparin) 5,000 units SC Q12 [facility] Last Admin: 09/26/18 10:01 Dose: 5,000 units Dextrose (Dextrose 5% In Water 1000 Ml) 1,000 mls @ 0 mls/hr IV .Q0M PRN; Protocol PRN Reason: Hypoglycemia Protocol Ceftriaxone Sodium 2 gm/ (Sodium Chloride) 100 mls @ 100 mls/hr IVPB Q24H [facility]; Protocol Stop: 10/31/18 12:01 Last Admin: 09/26/18 12:39 Dose: 100 mls/hr Insulin Human Isoph/Insulin Regular (Novolin 70/30 (70/30 Units/Ml) 10 Ml) 45 units SC ACB [facility] Last Admin: 09/26/18 08:21 Dose: 45 units Insulin Human Isoph/Insulin Regular (Novolin 70/30 (70/30 Units/Ml) 10 Ml) 23 units SC Q24H [facility] Last Admin: 09/25/18 19:21 Dose: 23 units Lactobacillus Acidophilus (Lactobacillus) 1 cap PO Q12H [facility] Last Admin: 09/26/18 05:59 Dose: 1 cap Lisinopril (Zestril) 5 mg PO DAILY [facility] Last Admin: 09/26/18 10:01 Dose: 5 mg Pantoprazole Sodium (Protonix Ec Tab) 40 mg PO DAILY [facility] Last Admin: 09/26/18 10:01 Dose: 40 mg Rosuvastatin Calcium (Crestor) 5 mg PO HS [facility] Last Admin: 09/25/18 21:52 Dose: 5 mg - Labs Labs: 09/26/18 07:30 09/26/18 07:30 PT 9.1 SECONDS (9.7-12.2) L 09/20/18 21:32 INR 0.8 09/20/18 21:32 APTT 23.3 SECONDS (21-34) 09/20/18 21:32 Attending/Attestation - Attestation I have personally seen and examined this patient.: Yes I have fully participated in the care of the patient.: Yes I have reviewed all pertinent clinical information, including history, physical exam and plan: Yes Notes (Text): 09/26/18 13:15 This is a late entry. Care of this patient was gone over in detail with Dr. Brant Sahu. Williams Ng D.O.
[2018-09-23] MEDS ORDERED: Clindamycin 600mg/50ml NS 600 MG/50 ML BAG IVPB SCH (13:00)
--- NOTE | 2018-09-23 18:06 | MRI ---
MRI left forefoot HISTORY: Ulcer. Evaluate for osteomyelitis. Comparison: CT dated 09/20/2018 Technique: Multi-echo multiplanar sequences were performed through the left forefoot without and with the use of intravenous contrast. Findings: Prominent soft tissue ulceration noted at the volar aspect of the 1st distal phalanx. Within the adjacent soft tissues there is focal soft tissue thickening with patchy decreased T1 signal and increased STIR signal measuring up to 1.4 centimeters. This may represent some phlegmonous changes. Signal change within the adjacent marrow of the base of the 1st distal phalanx with patchy decreased T1 signal and increased STIR signal with associated postcontrast enhancement concerning for an acute osteomyelitis. Adjacent nonspecific patchy reactive edema at the head of the 1st proximal phalanx. Prominent signal abnormality seen in the medial navicular bone demonstrating increased STIR signal with associated postcontrast enhancement measuring 1.1 centimeters. This is of uncertain clinical etiology and may represent the sequelae of acute infectious and or inflammatory changes versus sequelae of posttraumatic change versus sequelae of degenerative change versus additional etiology. Clinical correlation. Moderate hallux valgus deformity with degenerative changes noted at the 1st MTP joint space. Increased signal noted at the level of the Lisfranc ligament which may represent a sprain and or mild partial tear. Prior amputations of the 2nd 3rd and 5th digits to the level of the metatarsal heads with some productive change and or osteophytosis adjacent to the remnant 5th metatarsal head. Soft tissue thickening at the level of the soft tissues of the resection beds of the 2nd 3rd and 5th digits. Impression: 1. Prominent soft tissue ulceration noted at the volar aspect of the 1st distal phalanx. Within the adjacent soft tissues there is focal soft tissue thickening with patchy decreased T1 signal and increased STIR signal measuring up to 1.4 centimeters. This may represent some phlegmonous changes. Signal change within the adjacent marrow of the base of the 1st distal phalanx with patchy decreased T1 signal and increased STIR signal with associated postcontrast enhancement concerning for an acute osteomyelitis of the 1st distal phalanx. Adjacent nonspecific patchy reactive edema at the head of the 1st proximal phalanx. 2. Prominent signal abnormality seen in the medial navicular bone demonstrating increased STIR signal with associated postcontrast enhancement measuring 1.1 centimeters. This is of uncertain clinical etiology and may represent the sequelae of acute infectious and or inflammatory changes versus sequelae of posttraumatic change versus sequelae of degenerative change versus additional etiology. Clinical correlation. Additional findings and postsurgical changes as above.
[2018-09-23] MEDS: Piperacill/Tazo 3.375gm in Dex 3.375 GM/50 ML BAG IVPB SCH (20:14)
[2018-09-24] MEDS: Piperacill/Tazo 3.375gm in Dex 3.375 GM/50 ML BAG IVPB SCH ×3 (00:15→12:17)
--- NOTE | 2018-09-24 03:55 | CP.PCM.PN ---
<Wilton Bee - Last Filed: 09/24/18 03:52> Subjective - Date & Time of Evaluation Date of Evaluation: 09/24/18 Time of Evaluation: 03:53 - Subjective Subjective: Progress Note for Hospitalist Service, Dr. Williams Ng Pt seen and examined at bedside. Denies any acute complaints. No acute events reported overnight by staff. 12-point ROS obtained, otherwise neg as per pt. Objective - Vital Signs/Intake and Output Vital Signs (last 24 hours): Temp Pulse Resp BP Pulse Ox 97.7 F 68 18 122/73 98 09/24/18 00:00 09/24/18 00:00 09/24/18 00:00 09/24/18 00:00 09/24/18 00:00 Intake and Output: 09/23/18 09/24/18 18:59 06:59 Intake Total 1330 750 Balance 1330 750 - Medications Medications: Current Medications Acetaminophen (Tylenol 325mg Tab) 650 mg PO Q6 PRN PRN Reason: fever/pain Last Admin: 09/23/18 05:40 Dose: 650 mg Albuterol/Ipratropium (Duoneb 3 Mg/0.5 Mg (3 Ml) Ud) 3 ml INH RQ6 PRN PRN Reason: Shortness of Breath Aspirin (Aspirin Chewable) 81 mg PO DAILY [facility] Last Admin: 09/23/18 10:03 Dose: 81 mg Bacitracin (Bacitracin) 1 ea TOP BID [facility] Last Admin: 09/23/18 18:43 Dose: Not Given Dextrose (Dextrose 50% Inj) 0 ml IV STAT PRN; Protocol PRN Reason: Hypoglycemia Protocol Dextrose (Glutose 15) 0 gm PO ONCE PRN; Protocol PRN Reason: Hypoglycemia Protocol Glucagon (Glucagen Diagnostic Kit) 0 mg IM STAT PRN; Protocol PRN Reason: Hypoglycemia Protocol Heparin Sodium (Porcine) (Heparin) 5,000 units SC Q12 [facility] Last Admin: 09/23/18 21:26 Dose: 5,000 units Dextrose (Dextrose 5% In Water 1000 Ml) 1,000 mls @ 0 mls/hr IV .Q0M PRN; Protocol PRN Reason: Hypoglycemia Protocol Piperacillin Sod/Tazobactam Sod (Zosyn 3.375 Gm Iv Premix) 3.375 gm in 50 mls @ 100 mls/hr IVPB Q6H [facility]; Protocol Last Admin: 09/24/18 00:15 Dose: 100 mls/hr Vancomycin HCl 1 gm/ Sodium (Chloride) 250 mls @ 166.7 mls/hr IVPB Q12H [facility]; Protocol Last Admin: 09/23/18 21:25 Dose: 166.7 mls/hr Insulin Human Isoph/Insulin Regular (Novolin 70/30 (70/30 Units/Ml) 10 Ml) 45 units SC ACB [facility] Last Admin: 09/23/18 07:53 Dose: 45 units Insulin Human Isoph/Insulin Regular (Novolin 70/30 (70/30 Units/Ml) 10 Ml) 23 units SC Q24H [facility] Last Admin: 09/23/18 20:14 Dose: 23 units Lisinopril (Zestril) 5 mg PO DAILY [facility] Last Admin: 09/23/18 10:03 Dose: 5 mg Pantoprazole Sodium (Protonix Ec Tab) 40 mg PO DAILY [facility] Rosuvastatin Calcium (Crestor) 5 mg PO HS [facility] Last Admin: 09/23/18 21:26 Dose: 5 mg - Labs Labs: 09/23/18 06:47 09/23/18 06:47 PT 9.1 SECONDS (9.7-12.2) L 09/20/18 21:32 INR 0.8 09/20/18 21:32 APTT 23.3 SECONDS (21-34) 09/20/18 21:32 - Constitutional Appears: Non-toxic, No Acute Distress - Head Exam Head Exam: ATRAUMATIC, NORMOCEPHALIC - Eye Exam Eye Exam: EOMI, Normal appearance, PERRL - ENT Exam Additional comments: Dry nasal turbinates, fissured tongue - Respiratory Exam Respiratory Exam: Clear to Ausculation Bilateral, NORMAL BREATHING PATTERN. absent: Rales, Rhonchi, Wheezes - Cardiovascular Exam Cardiovascular Exam: REGULAR RHYTHM, +S1, +S2 - GI/Abdominal Exam GI & Abdominal Exam: absent: Distended, Soft, Tenderness, Normal Bowel Sounds, Organomegaly - Extremities Exam Additional comments: left first toe with fresh dressing; c/d/i; no signs of active bleeding or drainage. 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 Plan: IDDM2, uncontrolled Insulin regimen: Novolin 70/30 45 units in the morning with breakfast at 8 am once daily and 23 units at 1930 once daily Hypoglycemic protocol Crestor 5 HS Lisinopril 5mg daily HgbA1c is 15 Betahydroxybutyrate is normal at 0.18 TSH is normal at 3.39 1x2cm Right Pedal Ulcer Status: Acute on chronic Left lower extremity CT: shows area of edema possible phlegmon vs abscess. no obvious signs of osteomyeltis. chronic changes s/p amputations. Wound care consulted :Recommending to start medihoney then covering with thick bulky dressing to be changed every day. Podiatry, Dr. Gallagher, consulted. Tylenol PRN pain/fever F/u left lower extremity MRI with and without contrast. HTN (well-controlled - at JNC8 DM goal) Status: chronic Continue lisinopril 5 mg po daily Hx CAD with stent Hx endartectomy Crestor 5 HS ASA 81mg daily Pt is on DANIELLE-i as above Pt is not on betablocker as she has uncontrolled diabetes on insulin and this will mask episodes of hypoglycemia Hx of HLD Lipid panel shows TG/CHL/LDL/HDL is 228/291/141/40 Crestor as above Hx Asthma-chronic Duonebs q6 PRN PPX Heparin 5000u q8 PTX 40 daily Diabetic HHD Disposition: MRI demonstrates osteomyelitis; will require PICC and IV ABX and ID consult; BG better controlled Further recs as per Dr. Williams Ng. Wilton Bee, DO PGY-1 <Williams Ng - Last Filed: 09/26/18 13:17> Objective - Vital Signs/Intake and Output Vital Signs (last 24 hours): Temp Pulse Resp BP Pulse Ox 98.2 F 75 20 112/74 98 09/26/18 07:00 09/26/18 07:00 09/26/18 07:00 09/26/18 07:00 09/26/18 07:00 Intake and Output: 09/26/18 09/26/18 06:59 18:59 Intake Total 400 Balance 400 - Medications Medications: Current Medications Acetaminophen (Tylenol 325mg Tab) 650 mg PO Q6 PRN PRN Reason: fever/pain Last Admin: 09/24/18 06:30 Dose: 650 mg Albuterol/Ipratropium (Duoneb 3 Mg/0.5 Mg (3 Ml) Ud) 3 ml INH RQ6 PRN PRN Reason: Shortness of Breath Aspirin (Aspirin Chewable) 81 mg PO DAILY [facility] Last Admin: 09/26/18 10:01 Dose: 81 mg Dextrose (Dextrose 50% Inj) 0 ml IV STAT PRN; Protocol PRN Reason: Hypoglycemia Protocol Dextrose (Glutose 15) 0 gm PO ONCE PRN; Protocol PRN Reason: Hypoglycemia Protocol Glucagon (Glucagen Diagnostic Kit) 0 mg IM STAT PRN; Protocol PRN Reason: Hypoglycemia Protocol Heparin Sodium (Porcine) (Heparin) 5,000 units SC Q12 [facility] Last Admin: 09/26/18 10:01 Dose: 5,000 units Dextrose (Dextrose 5% In Water 1000 Ml) 1,000 mls @ 0 mls/hr IV .Q0M PRN; Protocol PRN Reason: Hypoglycemia Protocol Ceftriaxone Sodium 2 gm/ (Sodium Chloride) 100 mls @ 100 mls/hr IVPB Q24H [facility]; Protocol Stop: 10/31/18 12:01 Last Admin: 09/26/18 12:39 Dose: 100 mls/hr Insulin Human Isoph/Insulin Regular (Novolin 70/30 (70/30 Units/Ml) 10 Ml) 45 units SC ACB [facility] Last Admin: 09/26/18 08:21 Dose: 45 units Insulin Human Isoph/Insulin Regular (Novolin 70/30 (70/30 Units/Ml) 10 Ml) 23 units SC Q24H [facility] Last Admin: 09/25/18 19:21 Dose: 23 units Lactobacillus Acidophilus (Lactobacillus) 1 cap PO Q12H [facility] Last Admin: 09/26/18 05:59 Dose: 1 cap Lisinopril (Zestril) 5 mg PO DAILY [facility] Last Admin: 09/26/18 10:01 Dose: 5 mg Pantoprazole Sodium (Protonix Ec Tab) 40 mg PO DAILY [facility] Last Admin: 09/26/18 10:01 Dose: 40 mg Rosuvastatin Calcium (Crestor) 5 mg PO HS [facility] Last Admin: 09/25/18 21:52 Dose: 5 mg - Labs Labs: 09/26/18 07:30 09/26/18 07:30 PT 9.1 SECONDS (9.7-12.2) L 09/20/18 21:32 INR 0.8 09/20/18 21:32 APTT 23.3 SECONDS (21-34) 09/20/18 21:32 Attending/Attestation - Attestation I have personally seen and examined this patient.: Yes I have fully participated in the care of the patient.: Yes I have reviewed all pertinent clinical information, including history, physical exam and plan: Yes Notes (Text): 09/26/18 13:17 This is a late entry. Care of this patient was gone over in detail with Dr. Tanya Bee. Williams Ng D.O.
[2018-09-24] MEDS: (Novolin 70/30) NPH/Regular 70/30 Units/ml 10 ml vial SC SCH ×2 (07:59→19:20)
[2018-09-24 08:08] LABS: EOS % 0.7 % (0.0-4.0); HEMOGLOBIN 11.3 g/dL (11.0-16.0); LYMPH # 1.1 K/uL (1.0-4.3); LYMPH % 27.6 % (20.0-40.0); MEAN CELL VOLUME 82.1 fL (81.0-99.0); MEAN CORPUSCULAR HGB CONC 34.1 g/dL (33.0-37.0); MEAN PLATELET VOLUME 9.8 fL (7.2-11.7); MONO # 0.2 K/uL (0.0-0.8); MONO % 6.1 % (0.0-10.0); NEUT # 2.6 K/uL (1.8-7.0); NEUT % 65.6 % (50.0-75.0); NRBC % 0.1 % (0.0-2.0); RBC 4.05 Mil/uL (3.80-5.20); RED CELL DISTRIBUTION WIDTH 13.9 % (11.5-14.5)
[2018-09-24 08:59] VITALS: RESP 20
[2018-09-24] MEDS: Pantoprazole 40 mg EC Tab PO SCH (09:02)
[2018-09-24] MEDS: Bacitracin 500 Units/gm Oint Foilpak UD TOP SCH (09:03)
[2018-09-24 09:10] LABS: ALB/GLOB RATIO 0.9 (1.0-2.1); ALBUMIN 3.3 g/dL (3.5-5.0); ALT/SGPT 58 U/L (9-52); AST/SGOT 82 U/L (14-36); BLOOD UREA NITROGEN 16 mg/dL (7-17); CALCIUM 9.1 mg/dl (8.6-10.4); GFR NON-AFRICAN AMERICAN > 60
--- NOTE | 2018-09-24 14:45 | CP.PCM.PN ---
Subjective - Date & Time of Evaluation Date of Evaluation: 09/24/18 Time of Evaluation: 11:00 - Subjective Subjective: Podiatry Progress Note- Dr. Gallagher 53 F with PMH of DM, HTN, high cholesterol, asthma, gastritis, migraine seen and evaluated at bedside for left hallux plantar ulcer with positive osteomyelitis. Patient is sitting comfortably in bed, in NAD, and AA0x3. Patient denies acute overnight events. Reports no issues with walking. Reports MRI was taken yesterday morning. Dressing has been changed daily by nurses/wound care with karoline goodwin cling. Denies nausea, fever, shortness of breath, chest pains or chills. Objective - Vital Signs/Intake and Output Vital Signs (last 24 hours): Temp Pulse Resp BP Pulse Ox 98.2 F 68 20 132/80 96 09/24/18 08:00 09/24/18 08:00 09/24/18 08:00 09/24/18 08:00 09/24/18 08:00 Intake and Output: 09/24/18 09/24/18 06:59 18:59 Intake Total 1150 400 Balance 1150 400 - Medications Medications: Current Medications Acetaminophen (Tylenol 325mg Tab) 650 mg PO Q6 PRN PRN Reason: fever/pain Last Admin: 09/24/18 06:30 Dose: 650 mg Albuterol/Ipratropium (Duoneb 3 Mg/0.5 Mg (3 Ml) Ud) 3 ml INH RQ6 PRN PRN Reason: Shortness of Breath Aspirin (Aspirin Chewable) 81 mg PO DAILY [facility] Last Admin: 09/24/18 09:03 Dose: 81 mg Bacitracin (Bacitracin) 1 ea TOP BID [facility] Last Admin: 09/24/18 09:03 Dose: 1 ea Dextrose (Dextrose 50% Inj) 0 ml IV STAT PRN; Protocol PRN Reason: Hypoglycemia Protocol Dextrose (Glutose 15) 0 gm PO ONCE PRN; Protocol PRN Reason: Hypoglycemia Protocol Glucagon (Glucagen Diagnostic Kit) 0 mg IM STAT PRN; Protocol PRN Reason: Hypoglycemia Protocol Heparin Sodium (Porcine) (Heparin) 5,000 units SC Q12 [facility] Last Admin: 09/24/18 09:02 Dose: 5,000 units Dextrose (Dextrose 5% In Water 1000 Ml) 1,000 mls @ 0 mls/hr IV .Q0M PRN; Protocol PRN Reason: Hypoglycemia Protocol Piperacillin Sod/Tazobactam Sod (Zosyn 3.375 Gm Iv Premix) 3.375 gm in 50 mls @ 100 mls/hr IVPB Q6H [facility]; Protocol Last Admin: 09/24/18 12:17 Dose: 100 mls/hr Vancomycin HCl 1 gm/ Sodium (Chloride) 250 mls @ 166.7 mls/hr IVPB Q12H [facility]; Protocol Last Admin: 09/24/18 08:00 Dose: 166.7 mls/hr Insulin Human Isoph/Insulin Regular (Novolin 70/30 (70/30 Units/Ml) 10 Ml) 45 units SC ACB [facility] Last Admin: 09/24/18 07:59 Dose: 45 units Insulin Human Isoph/Insulin Regular (Novolin 70/30 (70/30 Units/Ml) 10 Ml) 23 units SC Q24H [facility] Last Admin: 09/23/18 20:14 Dose: 23 units Lisinopril (Zestril) 5 mg PO DAILY [facility] Last Admin: 09/24/18 09:02 Dose: 5 mg Pantoprazole Sodium (Protonix Ec Tab) 40 mg PO DAILY [facility] Last Admin: 09/24/18 09:02 Dose: 40 mg Rosuvastatin Calcium (Crestor) 5 mg PO HS [facility] Last Admin: 09/23/18 21:26 Dose: 5 mg - Labs Labs: 09/24/18 07:40 09/24/18 07:40 PT 9.1 SECONDS (9.7-12.2) L 09/20/18 21:32 INR 0.8 09/20/18 21:32 APTT 23.3 SECONDS (21-34) 09/20/18 21:32 - Constitutional Appears: Well, Non-toxic, No Acute Distress - Extremities Exam Extremities Exam: absent: Calf Tenderness Additional comments: VASC: DP and PT 2/4 bilaterally, CFT to digits WNL, temperature WNL ORTHO: no pain with palpation to ulceration site, MM is 5/5 in all four compartments, amputated digits left foot 2,3,5 NEURO: gross and protective sensation diminished DERM: wound on plantar aspect of left foot at left hallux measuring approximately 1.8 x 1.2 x 0.2 cm, wound base is mainly fibrotic, wound has decreased howevere hyperkeratotic, no purulence, no erythema, no drainage, and no odor. Wound edges dry and intact - Neurological Exam Neurological Exam: Alert, Awake, Oriented x3 - Psychiatric Exam Psychiatric exam: Normal Affect, Normal Mood Assessment and Plan - Assessment and Plan (Free Text) Assessment: 53 F with PMH of DM, HTN, high cholesterol, asthma, gastritis, migraine seen and evaluated at bedside for left hallux plantar ulcer with positive osteomyelitis. Plan: Patient seen and examined Discussed plan with attending Dr. Gallagher CT reviewed MRI with OM of distal phalanx and possible OM of medial navicular Discussed with patient in detail regarding treatment options including amputation vs termite treater helper antibiotics Patient wants snf antibiotics with local wound care Cleansed ulceration with saline and dressed with medihoney and dsd Continue dressing changes with medihoney and dsd Patient to WBAT in surgical shoe Please dispense surgical shoe Will continue to follow patient while in house
--- NOTE | 2018-09-24 17:39 | CP.PCM.PCO ---
Physician Communication Note - Physician Communication Note Physician Communication Note: Please see above
--- NOTE | 2018-09-24 19:02 | CP.PCM.CON ---
History of Present Illness - History of Present Illness History of Present Illness: dictated Past Patient History - Infectious Disease Hx of Infectious Diseases: None - Tetanus Immunizations Tetanus Immunization: Unknown - Past Medical History & Family History Past Medical History?: Yes - Past Social History Smoking Status: Never Smoked - CARDIAC Hx Hypercholesterolemia: Yes Hx Hypertension: Yes - PULMONARY Hx Asthma: Yes Hx Chronic Obstructive Pulmonary Disease (COPD): Yes - NEUROLOGICAL Hx Migraine: Yes - HEENT Hx HEENT Problems: No - RENAL Hx Chronic Kidney Disease: No - ENDOCRINE/METABOLIC Hx Endocrine Disorders: Yes Hx Diabetes Mellitus Type 2: Yes - HEMATOLOGICAL/ONCOLOGICAL Hx Blood Disorders: No Other/Comment: Family members have a history of cancer and HIV. - INTEGUMENTARY Hx Dermatological Problems: No Hx Cellulitis: ( ) - MUSCULOSKELETAL/RHEUMATOLOGICAL Hx Arthritis: Yes - GASTROINTESTINAL Hx Gastritis: Yes - GENITOURINARY/GYNECOLOGICAL Hx Genitourinary Disorders: No - PSYCHIATRIC Hx Substance Use: No - SURGICAL HISTORY Hx Carotid Endarterectomy: Yes - ANESTHESIA Hx Anesthesia: Yes Hx Anesthesia Reactions: No Hx Malignant Hyperthermia: No Meds Allergies/Adverse Reactions: Allergies Allergy/AdvReac Type Severity Reaction Status Date / Time No Known Allergies Allergy Verified 09/20/18 21:11 - Medications Medications: Current Medications Acetaminophen (Tylenol 325mg Tab) 650 mg PO Q6 PRN PRN Reason: fever/pain Last Admin: 09/24/18 06:30 Dose: 650 mg Albuterol/Ipratropium (Duoneb 3 Mg/0.5 Mg (3 Ml) Ud) 3 ml INH RQ6 PRN PRN Reason: Shortness of Breath Aspirin (Aspirin Chewable) 81 mg PO DAILY [facility] Last Admin: 09/24/18 09:03 Dose: 81 mg Dextrose (Dextrose 50% Inj) 0 ml IV STAT PRN; Protocol PRN Reason: Hypoglycemia Protocol Dextrose (Glutose 15) 0 gm PO ONCE PRN; Protocol PRN Reason: Hypoglycemia Protocol Glucagon (Glucagen Diagnostic Kit) 0 mg IM STAT PRN; Protocol PRN Reason: Hypoglycemia Protocol Heparin Sodium (Porcine) (Heparin) 5,000 units SC Q12 [facility] Last Admin: 09/24/18 09:02 Dose: 5,000 units Dextrose (Dextrose 5% In Water 1000 Ml) 1,000 mls @ 0 mls/hr IV .Q0M PRN; Protocol PRN Reason: Hypoglycemia Protocol Vancomycin HCl 1 gm/ Sodium (Chloride) 250 mls @ 166.7 mls/hr IVPB Q12H [facility]; Protocol Last Admin: 09/24/18 08:00 Dose: 166.7 mls/hr Insulin Human Isoph/Insulin Regular (Novolin 70/30 (70/30 Units/Ml) 10 Ml) 45 units SC ACB [facility] Last Admin: 09/24/18 07:59 Dose: 45 units Insulin Human Isoph/Insulin Regular (Novolin 70/30 (70/30 Units/Ml) 10 Ml) 23 units SC Q24H [facility] Last Admin: 09/23/18 20:14 Dose: 23 units Lactobacillus Acidophilus (Lactobacillus) 1 cap PO Q12H [facility] Lisinopril (Zestril) 5 mg PO DAILY [facility] Last Admin: 09/24/18 09:02 Dose: 5 mg Pantoprazole Sodium (Protonix Ec Tab) 40 mg PO DAILY [facility] Last Admin: 09/24/18 09:02 Dose: 40 mg Rosuvastatin Calcium (Crestor) 5 mg PO HS [facility] Last Admin: 09/23/18 21:26 Dose: 5 mg Results - Vital Signs Recent Vital Signs: Last Vital Signs Temp 97.4 F L 09/24/18 16:00 Pulse 71 09/24/18 16:00 Resp 20 09/24/18 16:00 BP 128/78 09/24/18 16:00 Pulse Ox 100 09/24/18 16:00 - Labs Result Diagrams: 09/24/18 07:40 09/24/18 07:40 Labs: Laboratory Results - last 24 hr 09/23/18 09/24/18 09/24/18 21:41 02:11 07:08 WBC RBC Hgb Hct MCV MCH MCHC RDW Plt Count MPV Neut % (Auto) Lymph % (Auto) Millard % (Auto) Eos % (Auto) Baso % (Auto) Neut # (Auto) Lymph # (Auto) Millard # (Auto) Eos # (Auto) Baso # (Auto) ESR Sodium Potassium Chloride Carbon Dioxide Anion Gap BUN Creatinine Est GFR ( Amer) Est GFR (Non-Af Amer) POC Glucose (mg/dL) 164 H 142 H 200 H Random Glucose Calcium Phosphorus Magnesium Total Bilirubin AST ALT Alkaline Phosphatase C-Reactive Protein Total Protein Albumin Globulin Albumin/Globulin Ratio 09/24/18 09/24/18 09/24/18 07:40 07:40 11:15 WBC 4.0 L RBC 4.05 Hgb 11.3 Hct 33.3 L MCV 82.1 MCH 28.0 MCHC 34.1 RDW 13.9 Plt Count 171 MPV 9.8 Neut % (Auto) 65.6 Lymph % (Auto) 27.6 Millard % (Auto) 6.1 Eos % (Auto) 0.7 Baso % (Auto) 0.0 Neut # (Auto) 2.6 Lymph # (Auto) 1.1 Millard # (Auto) 0.2 Eos # (Auto) 0.0 Baso # (Auto) 0.0 ESR 41 H Sodium 135 Potassium 4.1 Chloride 102 Carbon Dioxide 29 Anion Gap 8 L BUN 16 Creatinine 0.6 L Est GFR ( Amer) > 60 Est GFR (Non-Af Amer) > 60 POC Glucose (mg/dL) 242 H Random Glucose 194 H Calcium 9.1 Phosphorus 4.1 Magnesium 1.6 Total Bilirubin 0.4 AST 82 H D ALT 58 H D Alkaline Phosphatase 97 C-Reactive Protein < 5.00 Total Protein 6.8 Albumin 3.3 L Globulin 3.5 Albumin/Globulin Ratio 0.9 L 09/24/18 16:27 WBC RBC Hgb Hct MCV MCH MCHC RDW Plt Count MPV Neut % (Auto) Lymph % (Auto) Millard % (Auto) Eos % (Auto) Baso % (Auto) Neut # (Auto) Lymph # (Auto) Millard # (Auto) Eos # (Auto) Baso # (Auto) ESR Sodium Potassium Chloride Carbon Dioxide Anion Gap BUN Creatinine Est GFR ( Amer) Est GFR (Non-Af Amer) POC Glucose (mg/dL) 130 H Random Glucose Calcium Phosphorus Magnesium Total Bilirubin AST ALT Alkaline Phosphatase C-Reactive Protein Total Protein Albumin Globulin Albumin/Globulin Ratio
[2018-09-24] MEDS: Lactobacillus Acidophilus 500 MU Cap PO SCH (19:55)
--- NOTE | 2018-09-25 04:13 | CON ---
DATE: 09/24/2018 REQUESTED BY: Dr. Nelson. HISTORY OF PRESENT ILLNESS: This patient is a 53-year-old female. She has uncontrolled diabetes, hypertension, hypercholesterolemia, asthma, gastritis, and migraine. She has been having ulcer on the big toe for the last six months and she says she was having issues with it. She says it started as a scratch and gradually got deeper and wider. She has also lost toes on this left foot before. She has had surgeries in 2012, 2014, and 2015. So, she only has two toes, a great toe and a third toe there. I am asked to evaluate her as her ulcer grew Staph aureus. PAST MEDICAL HISTORY: Significant for diabetic foot ulcers and noncompliance. She does not have any insurance. She has been having increased thirst, urination. She has poor diet control. She denied any fevers. No chest pain. No shortness of breath. No abdominal pain. No nausea. PAST SURGICAL HISTORY: She has had previously surgeries with amputation of the toes, carotid endarterectomy in 2014, dermal graft in 2014, and cardiac cath in 2014. FAMILY HISTORY: Mother has cancer. Grandmother has diabetes. SOCIAL HISTORY: Negative for smoking or drinking. She is unemployed, lives with and son. ALLERGIES: SHE IS NOT ALLERGIC TO ANY MEDICINE. MEDICATIONS: She was on Lantus and Januvia at home. Her medications include Tylenol at this time, DuoNeb, aspirin, . She is on 70/30 of NovoLog, 23 units every day and she is on 70/30 10 units at night, so she gets twice a day. She is on lactobacillus, on Zestril, Protonix. She is on vancomycin 1 g every 12 hours. She was getting bacitracin, which was discontinued. REVIEW OF SYSTEMS: She has uncontrolled diabetes. No other symptoms except the foot problems. Past medical history as above. She is a nonsmoker. She has a history of hypercholesterolemia and hypertension. She also has history of COPD and asthma, history of migraine. She has no chronic kidney issues. She has diabetes. She has no blood disorders. She came in with left foot ulcers and has had previous surgeries on the foot. PHYSICAL EXAMINATION: VITAL SIGNS: T-max is 97.4, pulse 71, blood pressure is 128/78, and respirations are 20. HEENT: Head is atraumatic and normocephalic. Pupils are reacting to light. NECK: Supple. LUNGS: Clear. CHEST: Chest wall symmetrical. HEART: S1 and S2, regular. ABDOMEN: Soft, nontender. No guarding, no rigidity present. EXTREMITIES: Left foot has an ulcer on the great toe and great toe is swollen, there is no second toe, there is a third toe, and other toes are missing from the foot. Right foot is unremarkable. LABORATORY DATA: Labs are noted. White count 4.2 when she came in. She came with a BUN of 15 and sugar was 500. Now, her labs show white count of 4, hemoglobin 11.3, hematocrit 33.3, and platelet count is 171. Chemistries; sodium is 135, potassium is 4.1, chloride 102, CO2 is 29, BUN is 16, and creatinine 0.6. AST is 82 and ALT is 58, is elevated. Sugar is 130 now. Micro culture came out Staph aureus and this Staph aureus is sensitive to Cipro, clindamycin, erythromycin, gentamicin, Levaquin, linezolid, moxifloxacin, and oxacillin. Penicillin is resistant, otherwise sensitive to most of the drugs. At this time, she is on vancomycin, but this is methicillin-sensitive Staph aureus. She had a lower extremity MRI done, which shows prominent soft tissue ulceration noted at the volar aspect of the first distal phalanx. Within the adjacent soft tissue, there is focal soft tissue thickening with patchy decreased T1 signal and increased STIR and measuring up to 1.4 cm. This may represent some phlegmon changes and adjacent marrow of the base of the first with patchy decreased T1 signal and increased STIR signal associate post contrast enhancement concerning for an acute osteomyelitis of the first distal phalanx. Adjacent nonspecific patchy reactive edema of the head of the first proximal phalanx. Prominent signal abnormality seen in the medial navicular bone that suggests clinical correlation with this. ASSESSMENT AND PLAN: So, at this time, I think we should order micro labs to give sensitivities to Rocephin, which is ceftriaxone and if it is sensitive to ceftriaxone, then we can start her on 2 g of Rocephin once a day, unless Podiatry is thinking otherwise and give her six weeks of treatment. She is waiting for her insurance also; in case that comes through, then nafcillin might be a better choice, but it is four times a day, which may not be possible with a noncompliant patient. So, I would stick to Rocephin 2 g a day, but leave her on vancomycin for now. She will need a peripherally inserted central catheter line and she will need complete blood count, comprehensive metabolic panel, and erythrocyte sedimentation rate weekly for the next six weeks and that may help with the osteomyelitis. Otherwise, she runs the risk of amputation as she has had other amputations on her foot and if she has any vascular problems, that also needs to be looked into; however, pulse is palpable at this time. Mirza Woo MD
[2018-09-25] MEDS: Lactobacillus Acidophilus 500 MU Cap PO SCH ×2 (06:19→19:25)
[2018-09-25 07:15] LABS: HEMOGLOBIN 12.1 g/dL (11.0-16.0); RBC 4.34 Mil/uL (3.80-5.20); WHITE BLOOD COUNT 4.5 K/uL (4.8-10.8)
[2018-09-25 07:16] LABS: BASO % 0.1 % (0.0-2.0); EOS % 0.8 % (0.0-4.0); LYMPH # 1.1 K/uL (1.0-4.3); LYMPH % 25.1 % (20.0-40.0); MEAN CELL VOLUME 82.7 fL (81.0-99.0); MEAN CORPUSCULAR HEMOGLOBIN 27.9 pg (27.0-31.0); MEAN CORPUSCULAR HGB CONC 33.7 g/dL (33.0-37.0); MEAN PLATELET VOLUME 9.7 fL (7.2-11.7); MONO # 0.3 K/uL (0.0-0.8); MONO % 6.2 % (0.0-10.0); NEUT % 67.8 % (50.0-75.0); RED CELL DISTRIBUTION WIDTH 14.4 % (11.5-14.5)
[2018-09-25 07:25] LABS: ALB/GLOB RATIO 0.9 (1.0-2.1); ALBUMIN 3.5 g/dL (3.5-5.0); ALT/SGPT 69 U/L (9-52); AST/SGOT 80 U/L (14-36); BLOOD UREA NITROGEN 16 mg/dL (7-17); GFR NON-AFRICAN AMERICAN > 60
--- NOTE | 2018-09-25 07:32 | CP.PCM.PN ---
<Wilton Bee - Last Filed: 09/25/18 13:09> Subjective - Date & Time of Evaluation Date of Evaluation: 09/25/18 Time of Evaluation: 09:43 - Subjective Subjective: Progress Note for Hospitalist Service, Dr. Mcdonald Pt seen and examined at bedside this am. Denies pain to ulcer on great toe currently. Consent signed at bedside for PICC line, all questions and concerns addressed, risks and benefits of procedure discussed with pt. Denies fever, chills, chest pain, sob, n/v/d/c, abd pain, urinary complaints, or other symptoms. Per overnight report, pt was nauseous after ingesting a pill at night, and was given Zofran x1 which relieved her symptoms. Objective - Vital Signs/Intake and Output Vital Signs (last 24 hours): Temp Pulse Resp BP Pulse Ox 97.6 F 67 20 100/60 95 09/24/18 23:20 09/24/18 23:20 09/24/18 23:20 09/24/18 23:20 09/24/18 23:20 Intake and Output: 09/25/18 09/25/18 06:59 18:59 Intake Total 350 Balance 350 - Medications Medications: Current Medications Acetaminophen (Tylenol 325mg Tab) 650 mg PO Q6 PRN PRN Reason: fever/pain Last Admin: 09/24/18 06:30 Dose: 650 mg Albuterol/Ipratropium (Duoneb 3 Mg/0.5 Mg (3 Ml) Ud) 3 ml INH RQ6 PRN PRN Reason: Shortness of Breath Aspirin (Aspirin Chewable) 81 mg PO DAILY [facility] Last Admin: 09/24/18 09:03 Dose: 81 mg Dextrose (Dextrose 50% Inj) 0 ml IV STAT PRN; Protocol PRN Reason: Hypoglycemia Protocol Dextrose (Glutose 15) 0 gm PO ONCE PRN; Protocol PRN Reason: Hypoglycemia Protocol Glucagon (Glucagen Diagnostic Kit) 0 mg IM STAT PRN; Protocol PRN Reason: Hypoglycemia Protocol Heparin Sodium (Porcine) (Heparin) 5,000 units SC Q12 [facility] Last Admin: 09/24/18 21:59 Dose: 5,000 units Dextrose (Dextrose 5% In Water 1000 Ml) 1,000 mls @ 0 mls/hr IV .Q0M PRN; Protocol PRN Reason: Hypoglycemia Protocol Vancomycin HCl 1 gm/ Sodium (Chloride) 250 mls @ 166.7 mls/hr IVPB Q12H [facility]; Protocol Last Admin: 09/24/18 21:56 Dose: 166.7 mls/hr Insulin Human Isoph/Insulin Regular (Novolin 70/30 (70/30 Units/Ml) 10 Ml) 45 units SC ACB [facility] Last Admin: 09/24/18 07:59 Dose: 45 units Insulin Human Isoph/Insulin Regular (Novolin 70/30 (70/30 Units/Ml) 10 Ml) 23 units SC Q24H [facility] Last Admin: 09/24/18 19:20 Dose: Not Given Lactobacillus Acidophilus (Lactobacillus) 1 cap PO Q12H [facility] Last Admin: 09/25/18 06:19 Dose: Not Given Lisinopril (Zestril) 5 mg PO DAILY [facility] Last Admin: 09/24/18 09:02 Dose: 5 mg Pantoprazole Sodium (Protonix Ec Tab) 40 mg PO DAILY [facility] Last Admin: 09/24/18 09:02 Dose: 40 mg Rosuvastatin Calcium (Crestor) 5 mg PO HS [facility] Last Admin: 09/24/18 21:59 Dose: 5 mg - Labs Labs: 09/25/18 06:55 09/25/18 06:55 PT 9.1 SECONDS (9.7-12.2) L 09/20/18 21:32 INR 0.8 09/20/18 21:32 APTT 23.3 SECONDS (21-34) 09/20/18 21:32 - Constitutional Appears: Non-toxic, No Acute Distress - Head Exam Head Exam: ATRAUMATIC, NORMOCEPHALIC - Eye Exam Eye Exam: EOMI, Normal appearance, PERRL - ENT Exam ENT Exam: Mucous Membranes Moist - Respiratory Exam Respiratory Exam: Clear to Ausculation Bilateral, NORMAL BREATHING PATTERN. absent: Rales, Rhonchi, Wheezes - Cardiovascular Exam Cardiovascular Exam: REGULAR RHYTHM, +S1, +S2 - GI/Abdominal Exam GI & Abdominal Exam: Soft, Normal Bowel Sounds. absent: Distended, Guarding, Tenderness, Organomegaly - Extremities Exam Extremities Exam: Full ROM, Normal Capillary Refill, Pedal Edema. absent: Tenderness Additional comments: 1+ pedal edema on L side, chronic; Ulceration 1-2 cm noted on plantar surface of L big toe, c/d/i, no abnormal drainage noted or erythema present, no tenderness to palpation - Neurological Exam Neurological Exam: Alert, Awake, CN II-XII Intact, Oriented x3 - Skin Skin Exam: Dry, Intact, Warm Assessment and Plan - Assessment and Plan (Free Text) Assessment: 53 year old female with PMH of IDDM2 with complications, HTN, HLD, CAD with stent, hx endarterectomy, asthma who presents with uncontrolled blood sugars and nonhealing left large toe ulceration. Plan: IDDM2, uncontrolled Insulin regimen: Novolin 70/30 45 units in the morning with breakfast at 8 am once daily and 23 units at 1930 once daily Hypoglycemic protocol Crestor 5 HS Lisinopril 5mg daily HgbA1c is 15 Betahydroxybutyrate is normal at 0.18 TSH is normal at 3.39 Cont to trend fingersticks, elevated in 200s this am, may need insulin regimen adjusted 1x2cm Right Pedal Ulcer Status: Acute on chronic Left lower extremity CT: shows area of edema possible phlegmon vs abscess. no obvious signs of osteomyeltis. chronic changes s/p amputations. MRI demonstrates osteomyelitis Wound care consulted: Recommending to start medihoney then covering with thick bulky dressing to be changed every day. Podiatry, Dr. Gallagher, consulted, recommend no acute surgical mgmt at this time PICC line placed today Will need to discuss with ID re. duration of antibiotic therapy Tylenol PRN pain/fever Vanco 1 g q12h IVPB HTN (well-controlled - at JNC8 DM goal) Status: chronic Continue lisinopril 5 mg po daily Hx CAD with stent Hx endartectomy Crestor 5 HS ASA 81mg daily Pt is on DANIELLE-i as above Pt is not on beta-rashawn as she has uncontrolled diabetes on insulin and this will mask episodes of hypoglycemia Hx of HLD Lipid panel shows TG/CHL/LDL/HDL is 228/291/141/40 Crestor as above Hx Asthma-chronic Duonebs q6 PRN PPX Heparin 5000u q8 PTX 40 daily Diabetic HHD Disposition: MRI demonstrates osteomyelitis; PICC line placed today. Will f/u with ID regarding duration of antibiotic therapy. Once antibiotic decided, will discuss with Associate Professor options for outpatient infusion based on pt's current insurance. Wilton Bee DO PGY-1, [employer] Pager #[phone] <Zoie Mcdonald Last Filed: 09/26/18 07:57> Objective - Vital Signs/Intake and Output Vital Signs (last 24 hours): Temp Pulse Resp BP Pulse Ox 97.6 F 74 20 100/64 97 09/26/18 00:05 09/26/18 00:05 09/26/18 00:05 09/26/18 00:05 09/26/18 00:05 Intake and Output: 09/26/18 09/26/18 06:59 18:59 Intake Total 400 Balance 400 - Medications Medications: Current Medications Acetaminophen (Tylenol 325mg Tab) 650 mg PO Q6 PRN PRN Reason: fever/pain Last Admin: 09/24/18 06:30 Dose: 650 mg Albuterol/Ipratropium (Duoneb 3 Mg/0.5 Mg (3 Ml) Ud) 3 ml INH RQ6 PRN PRN Reason: Shortness of Breath Aspirin (Aspirin Chewable) 81 mg PO DAILY [facility] Last Admin: 09/25/18 10:00 Dose: 81 mg Dextrose (Dextrose 50% Inj) 0 ml IV STAT PRN; Protocol PRN Reason: Hypoglycemia Protocol Dextrose (Glutose 15) 0 gm PO ONCE PRN; Protocol PRN Reason: Hypoglycemia Protocol Glucagon (Glucagen Diagnostic Kit) 0 mg IM STAT PRN; Protocol PRN Reason: Hypoglycemia Protocol Heparin Sodium (Porcine) (Heparin) 5,000 units SC Q12 [facility] Last Admin: 09/25/18 21:52 Dose: 5,000 units Dextrose (Dextrose 5% In Water 1000 Ml) 1,000 mls @ 0 mls/hr IV .Q0M PRN; Protocol PRN Reason: Hypoglycemia Protocol Piperacillin Sod/Tazobactam Sod (Zosyn 3.375 Gm Iv Premix) 3.375 gm in 50 mls @ 100 mls/hr IVPB Q6H [facility]; Protocol Last Admin: 09/26/18 05:41 Dose: 100 mls/hr Insulin Human Isoph/Insulin Regular (Novolin 70/30 (70/30 Units/Ml) 10 Ml) 45 units SC ACB [facility] Last Admin: 09/25/18 08:35 Dose: 45 units Insulin Human Isoph/Insulin Regular (Novolin 70/30 (70/30 Units/Ml) 10 Ml) 23 units SC Q24H [facility] Last Admin: 09/25/18 19:21 Dose: 23 units Lactobacillus Acidophilus (Lactobacillus) 1 cap PO Q12H [facility] Last Admin: 09/26/18 05:59 Dose: 1 cap Lisinopril (Zestril) 5 mg PO DAILY [facility] Last Admin: 09/25/18 10:00 Dose: 5 mg Pantoprazole Sodium (Protonix Ec Tab) 40 mg PO DAILY [facility] Last Admin: 09/25/18 10:00 Dose: 40 mg Rosuvastatin Calcium (Crestor) 5 mg PO HS [facility] Last Admin: 09/25/18 21:52 Dose: 5 mg - Labs Labs: 09/26/18 07:30 09/25/18 06:55 PT 9.1 SECONDS (9.7-12.2) L 09/20/18 21:32 INR 0.8 09/20/18 21:32 APTT 23.3 SECONDS (21-34) 09/20/18 21:32 Attending/Attestation - Attestation I have personally seen and examined this patient.: Yes I have fully participated in the care of the patient.: Yes I have reviewed all pertinent clinical information, including history, physical exam and plan: Yes Notes (Text): This is a late computer entry for September 25, 2018. This is a 53-year-old female with a past medical history significant for uncontrolled insulin-dependent diabetes with significant history of prior amputations, hypertension, lipid disorder, coronary artery disease with stent prior history of endarterectomy and history of asthma who presents with a nonhealing left large toe ulceration as well as uncontrolled blood sugars. Patient seen, examined case discussed with medical legal investigator. Patient seen at lunchtime noted that on her meal tray eating a large potato as well as diet soda ice tea she was reiterated at bedside that she needs to be mindful of the food choices that she is making which is contributing to her uncontrolled sugars. Patient herself is aware that her food choices are contributing to her uncontrolled sugars. Patient reports that she was seen by the podiatry team earlier today noting that unlikely any type of further intervention. Patient also did receive a PICC line earlier today for IV antibiotics to cover for osteomyelitis. We will need to follow-up with infectious disease in terms of length the duration of IV antibiotics as long as there is no further intervention required by the podiatry team. Assessment/plan 1. Osteomyelitis, diabetic foot ulcer Assessment/plan Infectious disease on board Podiatry team on board Patient has completed both a CT as well as an MRI official copies of reports available in EMR MRI verifies that patient has osteomyelitis. Patient has had PICC line placed today Patient is currently on vancomycin 1 g IVevery 12 hours. Vanco trough was subtherapeutic. ID has changed IV antibiotics to Zosyn and later in the evening . Blood cultures are negative Foot abscess from September 20 preliminary noting for staph aureus will need to follow-up final read Patient remains afebrile while on IV antibiotic therapy 2. Diabetes uncontrolled Assessment/plan A1c 15 Novolin 70/30 45 units at breakfast time Novolin 70/30 23 units at 7:30 PM We will continue to continue monitoring Accu-Cheks as well as reemphasizing with the patient terms of appropriate dietary choices to help improve sugars Patient is on lisinopril 5 mg once a day Aspirin 81 mg once a day Crestor 5 mg a evening 3. Hypertension Assessment/plan Lisinopril 5 mg once a day Monitor vital signs 4.Hx CAD with stent Hx endartectomy Continue with Crestor 5 milligrams HS Continue with ASA 81mg daily Continue with lisinopril 5 mg once a day Pt is not on beta-rashawn as she has uncontrolled diabetes on insulin and this will mask episodes of hypoglycemia 5. Lipid disorder Lipid panel shows TG/CHL/LDL/HDL is 228/291/141/40 Crestor as above 6. Hx Asthma-chronic Duonebs q6 PRN Patient is not in acute exacerbation 7. PPX DVT prophylaxis heparin 5000u q8 GI prophylaxis will discontinue Protonix and start Pepcid Diabetic HHD Disposition: MRI demonstrates osteomyelitis; PICC line placed today. Will f/u with ID regarding duration of antibiotic therapy. Once antibiotic decided, will discuss with Associate Professor options for outpatient infusion based on pt's current insurance.
[2018-09-25] MEDS: (Novolin 70/30) NPH/Regular 70/30 Units/ml 10 ml vial SC SCH ×2 (08:35→19:21)
[2018-09-25] MEDS: Pantoprazole 40 mg EC Tab PO SCH (10:00)
--- NOTE | 2018-09-25 10:52 | CP.PCM.PN ---
Subjective - Date & Time of Evaluation Date of Evaluation: 09/25/18 Time of Evaluation: 10:00 - Subjective Subjective: Podiatry Progress Note- Dr. Gallagher 53 F with PMH of DM, HTN, high cholesterol, asthma, gastritis, migraine seen and evaluated at bedside for left hallux plantar ulcer with positive osteomyelitis with attending Dr. Gallgaher at bedside. Patient is sitting comfortably in bed, in NAD, and AA0x3. Patient denies acute overnight events. Discussed with patient regarding treatment of osteomyelitis. Patient reports she has a amputations in the past and wound not to have any more amputation. Reports that her wound looks better and she feels better. Patient is opting for conservative treatment of mcfp IV abx for treatment of osteomyelitis. Dressing has been changed daily by nurses/wound care with karoline goodwin cling. Denies nausea, fever, shortness of breath, chest pains or chills at the moment. Objective - Vital Signs/Intake and Output Vital Signs (last 24 hours): Temp Pulse Resp BP Pulse Ox 98.0 F 74 20 116/76 97 09/25/18 07:00 09/25/18 07:00 09/25/18 07:00 09/25/18 07:00 09/25/18 07:00 Intake and Output: 09/25/18 09/25/18 06:59 18:59 Intake Total 350 Balance 350 - Medications Medications: Current Medications Acetaminophen (Tylenol 325mg Tab) 650 mg PO Q6 PRN PRN Reason: fever/pain Last Admin: 09/24/18 06:30 Dose: 650 mg Albuterol/Ipratropium (Duoneb 3 Mg/0.5 Mg (3 Ml) Ud) 3 ml INH RQ6 PRN PRN Reason: Shortness of Breath Aspirin (Aspirin Chewable) 81 mg PO DAILY [facility] Last Admin: 09/25/18 10:00 Dose: 81 mg Dextrose (Dextrose 50% Inj) 0 ml IV STAT PRN; Protocol PRN Reason: Hypoglycemia Protocol Dextrose (Glutose 15) 0 gm PO ONCE PRN; Protocol PRN Reason: Hypoglycemia Protocol Glucagon (Glucagen Diagnostic Kit) 0 mg IM STAT PRN; Protocol PRN Reason: Hypoglycemia Protocol Heparin Sodium (Porcine) (Heparin) 5,000 units SC Q12 [facility] Last Admin: 09/25/18 10:00 Dose: Not Given Dextrose (Dextrose 5% In Water 1000 Ml) 1,000 mls @ 0 mls/hr IV .Q0M PRN; Protocol PRN Reason: Hypoglycemia Protocol Vancomycin HCl 1 gm/ Sodium (Chloride) 250 mls @ 166.7 mls/hr IVPB Q12H [facility]; Protocol Last Admin: 09/25/18 10:01 Dose: 166.7 mls/hr Insulin Human Isoph/Insulin Regular (Novolin 70/30 (70/30 Units/Ml) 10 Ml) 45 units SC ACB [facility] Last Admin: 09/25/18 08:35 Dose: 45 units Insulin Human Isoph/Insulin Regular (Novolin 70/30 (70/30 Units/Ml) 10 Ml) 23 units SC Q24H [facility] Last Admin: 09/24/18 19:20 Dose: Not Given Lactobacillus Acidophilus (Lactobacillus) 1 cap PO Q12H [facility] Last Admin: 09/25/18 06:19 Dose: Not Given Lisinopril (Zestril) 5 mg PO DAILY [facility] Last Admin: 09/25/18 10:00 Dose: 5 mg Pantoprazole Sodium (Protonix Ec Tab) 40 mg PO DAILY [facility] Last Admin: 09/25/18 10:00 Dose: 40 mg Rosuvastatin Calcium (Crestor) 5 mg PO HS [facility] Last Admin: 09/24/18 21:59 Dose: 5 mg - Labs Labs: 09/25/18 06:55 09/25/18 06:55 PT 9.1 SECONDS (9.7-12.2) L 09/20/18 21:32 INR 0.8 09/20/18 21:32 APTT 23.3 SECONDS (21-34) 09/20/18 21:32 - Constitutional Appears: Well, Non-toxic, No Acute Distress - Extremities Exam Extremities Exam: absent: Calf Tenderness Additional comments: VASC: DP and PT 2/4 bilaterally, CFT to digits WNL, temperature WNL ORTHO: no pain with palpation to ulceration site, MM is 5/5 in all four compartments, amputated digits left foot 2,3,5 NEURO: gross and protective sensation diminished DERM: wound on plantar aspect of left foot at left hallux measuring approximately 1.5 x 1 x 0.2 cm, wound base is mainly fibrotic, wound size is decreasing, hyperkeratotic, no purulence, no erythema, no drainage, and no odor. Wound edges dry and intact - Psychiatric Exam Psychiatric exam: Normal Affect, Normal Mood Assessment and Plan - Assessment and Plan (Free Text) Assessment: 53 F with PMH of DM, HTN, high cholesterol, asthma, gastritis, migraine seen and evaluated at bedside for left hallux plantar ulcer with positive osteomyelitis opting for conservative treatment of mcfp IV abx and local wound care. Plan: Patient seen and examined with attending Dr. Gallagher Discussed plan with attending Dr. 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 Retana recommendations Wound culture on 08/24/18 (preliminary read) staphylococcus aureus Will continue to follow patient while in house
--- NOTE | 2018-09-25 11:37 | RAD ---
Date of service: 09/25/2018 HISTORY: verify right PICC COMPARISON: Chest radiograph dated 02/01/2017. TECHNIQUE: 1 view obtained. FINDINGS: LUNGS: Pulmonary vascular congestion. PLEURA: No significant pleural effusion identified, no pneumothorax apparent. CARDIOVASCULAR: No aortic atherosclerotic calcification present. Normal cardiac size. No pulmonary vascular congestion. OSSEOUS STRUCTURES: No significant abnormalities. VISUALIZED UPPER ABDOMEN: Normal. OTHER FINDINGS: New right upper extremity PICC with catheter tip at the cavoatrial junction. IMPRESSION: Right upper extremity PICC in satisfactory position. No other significant interval change.
--- NOTE | 2018-09-25 15:44 | CP.PCM.PN ---
Subjective - Date & Time of Evaluation Date of Evaluation: 09/25/18 Time of Evaluation: 12:45 - Subjective Subjective: dictated Objective - Vital Signs/Intake and Output Vital Signs (last 24 hours): Temp Pulse Resp BP Pulse Ox 98.0 F 74 20 116/76 97 09/25/18 07:00 09/25/18 07:00 09/25/18 07:00 09/25/18 07:00 09/25/18 07:00 Intake and Output: 09/25/18 09/25/18 06:59 18:59 Intake Total 1080 Balance 1080 - Medications Medications: Current Medications Acetaminophen (Tylenol 325mg Tab) 650 mg PO Q6 PRN PRN Reason: fever/pain Last Admin: 09/24/18 06:30 Dose: 650 mg Albuterol/Ipratropium (Duoneb 3 Mg/0.5 Mg (3 Ml) Ud) 3 ml INH RQ6 PRN PRN Reason: Shortness of Breath Aspirin (Aspirin Chewable) 81 mg PO DAILY [facility] Last Admin: 09/25/18 10:00 Dose: 81 mg Dextrose (Dextrose 50% Inj) 0 ml IV STAT PRN; Protocol PRN Reason: Hypoglycemia Protocol Dextrose (Glutose 15) 0 gm PO ONCE PRN; Protocol PRN Reason: Hypoglycemia Protocol Glucagon (Glucagen Diagnostic Kit) 0 mg IM STAT PRN; Protocol PRN Reason: Hypoglycemia Protocol Heparin Sodium (Porcine) (Heparin) 5,000 units SC Q12 [facility] Last Admin: 09/25/18 10:00 Dose: Not Given Dextrose (Dextrose 5% In Water 1000 Ml) 1,000 mls @ 0 mls/hr IV .Q0M PRN; Protocol PRN Reason: Hypoglycemia Protocol Insulin Human Isoph/Insulin Regular (Novolin 70/30 (70/30 Units/Ml) 10 Ml) 45 units SC ACB [facility] Last Admin: 09/25/18 08:35 Dose: 45 units Insulin Human Isoph/Insulin Regular (Novolin 70/30 (70/30 Units/Ml) 10 Ml) 23 units SC Q24H [facility] Last Admin: 09/24/18 19:20 Dose: Not Given Lactobacillus Acidophilus (Lactobacillus) 1 cap PO Q12H [facility] Last Admin: 09/25/18 06:19 Dose: Not Given Lisinopril (Zestril) 5 mg PO DAILY [facility] Last Admin: 09/25/18 10:00 Dose: 5 mg Pantoprazole Sodium (Protonix Ec Tab) 40 mg PO DAILY [facility] Last Admin: 09/25/18 10:00 Dose: 40 mg Rosuvastatin Calcium (Crestor) 5 mg PO HS [facility] Last Admin: 09/24/18 21:59 Dose: 5 mg - Labs Labs: 09/25/18 06:55 09/25/18 06:55 PT 9.1 SECONDS (9.7-12.2) L 09/20/18 21:32 INR 0.8 09/20/18 21:32 APTT 23.3 SECONDS (21-34) 09/20/18 21:32
[2018-09-25] MEDS: Piperacill/Tazo 3.375gm in Dex 3.375 GM/50 ML BAG IVPB SCH ×2 (16:43→22:06)
--- NOTE | 2018-09-25 20:18 | PN ---
DATE: 09/25/2018 SUBJECTIVE: The patient was seen today. She is afebrile and she did get a PICC line done on the right arm. She says her left great toe ulcer is getting smaller and she promises to take her insulin and she was seen by Dr. Gallagher's resident and she denies any other complaints at this time. No nausea, no vomiting, no diarrhea. PHYSICAL EXAMINATION: VITAL SIGNS: Her T-max was 98, pulse 74, blood pressure 116/76, respirations are 20. HEENT: Head is atraumatic, normocephalic. NECK: Supple. LUNGS: Clear. HEART: S1, S2, regular. ABDOMEN: Soft, nontender. No guarding, no rigidity present. Right side PICC line appears unremarkable. EXTREMITIES: Left foot has a dressing at this time, was seen yesterday. LABORATORY DATA: Labs show BUN 16 and creatinine 0.7. Micro doran, her wound culture had Staph aureus which was also sensitive to moxifloxacin, Cipro, clindamycin. ASSESSMENT AND PLAN: I am on Rocephin and I have asked [facility] to look into Rocephin sensitivities so that we can send her home and she can get antibiotics at the infusion center as she does not have any insurance and to get CBC, CMP, ESR and CRP weekly. By the time she goes, she will be done with one week here so five weeks of antibiotics which may help her to heal and she needs to follow with the tree feller and to follow up in my office if needed. The patient is aware of that and we will leave it on her. For now, I am going to change it to Rocephin tomorrow but leave her on Zosyn at this time. Mirza Woo MD
[2018-09-26] MEDS: Piperacill/Tazo 3.375gm in Dex 3.375 GM/50 ML BAG IVPB SCH ×2 (05:41→10:02)
[2018-09-26] MEDS: Lactobacillus Acidophilus 500 MU Cap PO SCH (05:59)
--- NOTE | 2018-09-26 07:08 | CP.PCM.PN ---
Objective - Vital Signs/Intake and Output Vital Signs (last 24 hours): Temp Pulse Resp BP Pulse Ox 97.6 F 74 20 100/64 97 09/26/18 00:05 09/26/18 00:05 09/26/18 00:05 09/26/18 00:05 09/26/18 00:05 Intake and Output: 09/26/18 09/26/18 06:59 18:59 Intake Total 400 Balance 400 - Medications Medications: Current Medications Acetaminophen (Tylenol 325mg Tab) 650 mg PO Q6 PRN PRN Reason: fever/pain Last Admin: 09/24/18 06:30 Dose: 650 mg Albuterol/Ipratropium (Duoneb 3 Mg/0.5 Mg (3 Ml) Ud) 3 ml INH RQ6 PRN PRN Reason: Shortness of Breath Aspirin (Aspirin Chewable) 81 mg PO DAILY [facility] Last Admin: 09/25/18 10:00 Dose: 81 mg Dextrose (Dextrose 50% Inj) 0 ml IV STAT PRN; Protocol PRN Reason: Hypoglycemia Protocol Dextrose (Glutose 15) 0 gm PO ONCE PRN; Protocol PRN Reason: Hypoglycemia Protocol Glucagon (Glucagen Diagnostic Kit) 0 mg IM STAT PRN; Protocol PRN Reason: Hypoglycemia Protocol Heparin Sodium (Porcine) (Heparin) 5,000 units SC Q12 [facility] Last Admin: 09/25/18 21:52 Dose: 5,000 units Dextrose (Dextrose 5% In Water 1000 Ml) 1,000 mls @ 0 mls/hr IV .Q0M PRN; Protocol PRN Reason: Hypoglycemia Protocol Piperacillin Sod/Tazobactam Sod (Zosyn 3.375 Gm Iv Premix) 3.375 gm in 50 mls @ 100 mls/hr IVPB Q6H [facility]; Protocol Last Admin: 09/26/18 05:41 Dose: 100 mls/hr Insulin Human Isoph/Insulin Regular (Novolin 70/30 (70/30 Units/Ml) 10 Ml) 45 units SC ACB [facility] Last Admin: 09/25/18 08:35 Dose: 45 units Insulin Human Isoph/Insulin Regular (Novolin 70/30 (70/30 Units/Ml) 10 Ml) 23 units SC Q24H [facility] Last Admin: 09/25/18 19:21 Dose: 23 units Lactobacillus Acidophilus (Lactobacillus) 1 cap PO Q12H [facility] Last Admin: 09/26/18 05:59 Dose: 1 cap Lisinopril (Zestril) 5 mg PO DAILY [facility] Last Admin: 09/25/18 10:00 Dose: 5 mg Pantoprazole Sodium (Protonix Ec Tab) 40 mg PO DAILY [facility] Last Admin: 09/25/18 10:00 Dose: 40 mg Rosuvastatin Calcium (Crestor) 5 mg PO HS [facility] Last Admin: 09/25/18 21:52 Dose: 5 mg - Labs Labs: 09/25/18 06:55 09/25/18 06:55 PT 9.1 SECONDS (9.7-12.2) L 09/20/18 21:32 INR 0.8 09/20/18 21:32 APTT 23.3 SECONDS (21-34) 09/20/18 21:32
[2018-09-26 07:42] LABS: BASO % 0.1 % (0.0-2.0); HEMOGLOBIN 11.4 g/dL (11.0-16.0); LYMPH # 1.1 K/uL (1.0-4.3); LYMPH % 25.5 % (20.0-40.0); MEAN CELL VOLUME 82.5 fL (81.0-99.0); MEAN CORPUSCULAR HEMOGLOBIN 27.6 pg (27.0-31.0); MEAN CORPUSCULAR HGB CONC 33.5 g/dL (33.0-37.0); MEAN PLATELET VOLUME 9.8 fL (7.2-11.7); MONO # 0.3 K/uL (0.0-0.8); MONO % 6.9 % (0.0-10.0); NEUT # 2.8 K/uL (1.8-7.0); NEUT % 66.5 % (50.0-75.0); NRBC % 0.1 % (0.0-2.0); RBC 4.12 Mil/uL (3.80-5.20); RED CELL DISTRIBUTION WIDTH 14.3 % (11.5-14.5); WHITE BLOOD COUNT 4.2 K/uL (4.8-10.8)
[2018-09-26 08:00] LABS: ALB/GLOB RATIO 0.9 (1.0-2.1); ALBUMIN 3.3 g/dL (3.5-5.0); ALT/SGPT 77 U/L (9-52); AST/SGOT 86 U/L (14-36); BLOOD UREA NITROGEN 18 mg/dL (7-17); GFR NON-AFRICAN AMERICAN > 60
[2018-09-26] MEDS: (Novolin 70/30) NPH/Regular 70/30 Units/ml 10 ml vial SC SCH (08:21)
[2018-09-26] MEDS: Pantoprazole 40 mg EC Tab PO SCH (10:01)
[2018-09-26] MEDS ORDERED: cefTRIAXone 2 GM in Sodium Chloride 0.9% 100 ML IVPB SCH (12:00)
[2018-09-26 15:53] VITALS: BP 144/81; PULSE 78; TEMP 97.7; O2SAT 97
--- NOTE | 2018-09-26 17:04 | CP.PCM.PN ---
Subjective - Date & Time of Evaluation Date of Evaluation: 09/26/18 Time of Evaluation: 12:00 - Subjective Subjective: Podiatry Progress Note- Dr. Gallagher 53 F with PMH of DM, HTN, high cholesterol, asthma, gastritis, migraine seen and evaluated at bedside for left hallux plantar ulcer with positive osteomyelitis. Patient is sitting comfortably in bed, in NAD, and AA0x3. Patient denies acute overnight events. Patient reports she is doing well. Reports no issues with wearing surgical shoe and walking. Denies nausea, fever, shortness of breath, chest pains or chills at the moment. Objective - Vital Signs/Intake and Output Vital Signs (last 24 hours): Temp Pulse Resp BP Pulse Ox 97.7 F 78 20 144/81 97 09/26/18 15:52 09/26/18 15:52 09/26/18 15:52 09/26/18 15:52 09/26/18 15:52 Intake and Output: 09/26/18 09/26/18 06:59 18:59 Intake Total 400 Balance 400 - Medications Medications: Current Medications Acetaminophen (Tylenol 325mg Tab) 650 mg PO Q6 PRN PRN Reason: fever/pain Last Admin: 09/24/18 06:30 Dose: 650 mg Albuterol/Ipratropium (Duoneb 3 Mg/0.5 Mg (3 Ml) Ud) 3 ml INH RQ6 PRN PRN Reason: Shortness of Breath Aspirin (Aspirin Chewable) 81 mg PO DAILY [facility] Last Admin: 09/26/18 10:01 Dose: 81 mg Dextrose (Dextrose 50% Inj) 0 ml IV STAT PRN; Protocol PRN Reason: Hypoglycemia Protocol Dextrose (Glutose 15) 0 gm PO ONCE PRN; Protocol PRN Reason: Hypoglycemia Protocol Glucagon (Glucagen Diagnostic Kit) 0 mg IM STAT PRN; Protocol PRN Reason: Hypoglycemia Protocol Heparin Sodium (Porcine) (Heparin) 5,000 units SC Q12 [facility] Last Admin: 09/26/18 10:01 Dose: 5,000 units Dextrose (Dextrose 5% In Water 1000 Ml) 1,000 mls @ 0 mls/hr IV .Q0M PRN; Pro tocol PRN Reason: Hypoglycemia Protocol Ceftriaxone Sodium 2 gm/ (Sodium Chloride) 100 mls @ 100 mls/hr IVPB Q24H [facility]; Protocol Stop: 10/31/18 12:01 Last Admin: 09/26/18 12:39 Dose: 100 mls/hr Insulin Human Isoph/Insulin Regular (Novolin 70/30 (70/30 Units/Ml) 10 Ml) 45 units SC ACB [facility] Last Admin: 09/26/18 08:21 Dose: 45 units Insulin Human Isoph/Insulin Regular (Novolin 70/30 (70/30 Units/Ml) 10 Ml) 23 units SC Q24H [facility] Last Admin: 09/25/18 19:21 Dose: 23 units Lactobacillus Acidophilus (Lactobacillus) 1 cap PO Q12H [facility] Last Admin: 09/26/18 05:59 Dose: 1 cap Lisinopril (Zestril) 5 mg PO DAILY [facility] Last Admin: 09/26/18 10:01 Dose: 5 mg Pantoprazole Sodium (Protonix Ec Tab) 40 mg PO DAILY [facility] Last Admin: 09/26/18 10:01 Dose: 40 mg Rosuvastatin Calcium (Crestor) 5 mg PO HS [facility] Last Admin: 09/25/18 21:52 Dose: 5 mg - Labs Labs: 09/26/18 07:30 09/26/18 07:30 PT 9.1 SECONDS (9.7-12.2) L 09/20/18 21:32 INR 0.8 09/20/18 21:32 APTT 23.3 SECONDS (21-34) 09/20/18 21:32 - Constitutional Appears: Well, Non-toxic, No Acute Distress - Extremities Exam Extremities Exam: absent: Calf Tenderness Additional comments: VASC: DP and PT 2/4 bilaterally, CFT to digits WNL, temperature WNL ORTHO: no pain with palpation to ulceration site, MM is 5/5 in all four compartments, amputated digits left foot 2,3,5 NEURO: gross and protective sensation diminished DERM: wound on plantar aspect of left foot at left hallux measuring approxim ately 1 x 1 x 0.2 cm, wound base is mainly fibrotic, wound size is decreasing, hyperkeratotic, no purulence, no erythema, no drainage, and no odor. Wound edges dry and intact - Neurological Exam Neurological Exam: Alert, Awake, Oriented x3 Assessment and Plan - Assessment and Plan (Free Text) Assessment: 53 F with PMH of DM, HTN, high cholesterol, asthma, gastritis, migraine seen and evaluated at bedside for left hallux plantar ulcer with positive osteomyelitis opting for conservative treatment of buttermaker continuous churn IV abx and local wound care. Plan: Patient seen and examined Discussed plan with attending Dr. Gallagher CT reviewed MRI with OM of distal phalanx and possible OM of medial navicular Discussed with patient in detail regarding treatment options including amputation vs intermediate antibiotics Patient wants buttermaker continuous churn antibiotics with local wound care Cleansed ulceration with saline and dressed with medihoney and dsd Continue dressing changes with medihoney and dsd Patient to WBAT in surgical shoe Patient is stable per podiatry standpoint for discharge No surgical intervention of left foot wound Will continue to provide local wound care IV abx per Dr. Retana recommendations Wound culture on 08/24/18 : staphylococcus aureus and beta hemolytic strep group b [place] to wear surgical shoe at all times while ambulating Will continue to follow patient while in house
--- NOTE | 2018-09-26 18:31 | CP.PCM.DIS ---
Provider - Provider Date of Admission: 09/20/18 23:13 Attending physician: Zoie Mcdonald DO Primary care physician: Dr. Jackman Consults: 09/21/18 03:50 Inpatient [employer] Core Measures Referral Routine Comment: Physician Instructions: Reason For Exam: Hx: COPD Nursing Referral for Wound Care Routine Comment: Physician Instructions: left great toe Reason For Exam: Non healing pressure ulcer at the plantar surface 09/21/18 08:22 Podiatry Consult Routine Comment: Consulting Provider: Sage Gallagher Consulting Physician: Sage Gallagher Reason for Consult: Left Great Toe Pedal Surface Ulcer. Hx uncontrolled DM 09/23/18 19:15 Infectious Disease Consult Routine Comment: Consulting Provider: Mirza Woo Consulting Physician: Mirza Woo Reason for Consult: osteomyelitis; duration of antibiotics Time Spent in preparation of Discharge (in minutes): 35 Diagnosis - Discharge Diagnosis (1) Diabetic foot ulcer Status: Acute (2) Hx of coronary artery disease Status: Chronic (3) Infection of left foot Status: Acute Priority: Medium (4) Osteomyelitis Status: Acute (5) Asthma Status: Chronic Priority: Low (6) Diabetes Status: Chronic Priority: High (7) Hypertension Status: Chronic Priority: Medium Hospital Course - Lab Results Lab Results: Micro Results 09/20/18 23:43 Foot - Left Gram Stain - Final 09/20/18 23:43 Foot - Left Wound Culture - Final Staphylococcus Aureus Beta Hemolytic Strep Group B 09/20/18 22:35 Blood Blood Culture - Final NO GROWTH AFTER 5 DAYS 09/20/18 22:35 Blood Gram Stain - Final TEST NOT PERFORMED 09/20/18 21:32 Blood Blood Culture - Final NO GROWTH AFTER 5 DAYS 09/20/18 21:32 Blood Gram Stain - Final TEST NOT PERFORMED Most Recent Lab Values WBC 4.2 K/uL (4.8-10.8) L 09/26/18 07:30 RBC 4.12 Mil/uL (3.80-5.20) 09/26/18 07:30 Hgb 11.4 g/dL (11.0-16.0) 09/26/18 07:30 Hct 33.9 % (34.0-47.0) L 09/26/18 07:30 MCV 82.5 fL (81.0-99.0) 09/26/18 07:30 MCH 27.6 pg (27.0-31.0) 09/26/18 07:30 MCHC 33.5 g/dL (33.0-37.0) 09/26/18 07:30 RDW 14.3 % (11.5-14.5) 09/26/18 07:30 Plt Count 176 K/uL (130-400) 09/26/18 07:30 MPV 9.8 fL (7.2-11.7) 09/26/18 07:30 Neut % (Auto) 66.5 % (50.0-75.0) 09/26/18 07:30 Lymph % (Auto) 25.5 % (20.0-40.0) 09/26/18 07:30 [place] % (Auto) 6.9 % (0.0-10.0) 09/26/18 07:30 Eos % (Auto) 1.0 % (0.0-4.0) 09/26/18 07:30 Baso % (Auto) 0.1 % (0.0-2.0) 09/26/18 07:30 Neut # (Auto) 2.8 K/uL (1.8-7.0) 09/26/18 07:30 Lymph # (Auto) 1.1 K/uL (1.0-4.3) 09/26/18 07:30 [place] # (Auto) 0.3 K/uL (0.0-0.8) 09/26/18 07:30 Eos # (Auto) 0.0 K/uL (0.0-0.7) 09/26/18 07:30 Baso # (Auto) 0.0 K/uL (0.0-0.2) 09/26/18 07:30 ESR 41 mm/hr (0-20) H 09/24/18 07:40 PT 9.1 SECONDS (9.7-12.2) L 09/20/18 21:32 INR 0.8 09/20/18 21:32 APTT 23.3 SECONDS (21-34) 09/20/18 21:32 pO2 36 mm/Hg (30-55) 09/20/18 21:32 VBG pH 7.36 (7.32-7.43) 09/20/18 21:32 VBG pCO2 48 mmHg (40-60) 09/20/18 21:32 VBG HCO3 24.9 mmol/L 09/20/18 21:32 VBG Total CO2 28.6 mmol/L (22-28) H 09/20/18 21:32 VBG Base Excess 1.0 mmol/L (0.0-2.0) 09/20/18 21:32 VBG Potassium 6.8 mmol/L (3.6-5.2) H* 09/20/18 21:32 Sodium 134.0 mmol/l (132-148) 09/20/18 21:32 Chloride 101.0 mmol/L (98-107) 09/20/18 21:32 Glucose 520 mg/dl (65-105) H* 09/20/18 21:32 Lactate 1.8 mmol/L (0.7-2.1) 09/20/18 21:32 Crit Value Called To Kush vidal md 09/20/18 21:32 Crit Value Called By Nara 09/20/18 21:32 Crit Value Read Back Y 09/20/18 21:32 Blood Gas Notified Time 213709/20/18 21:32 Sodium 136 mmol/L (132-148) 09/26/18 07:30 Potassium 3.7 mmol/L (3.6-5.2) 09/26/18 07:30 Chloride 103 mmol/L (98-107) 09/26/18 07:30 Carbon Dioxide 27 mmol/L (22-30) 09/26/18 07:30 Anion Gap 10 (10-20) 09/26/18 07:30 BUN 18 mg/dL (7-17) H 09/26/18 07:30 Creatinine 0.7 mg/dL (0.7-1.2) 09/26/18 07:30 Est GFR ( Amer) > 60 09/26/18 07:30 Est GFR (Non-Af Amer) > 60 09/26/18 07:30 POC Glucose (mg/dL) 205 mg/dL (65-110) H 09/26/18 11:13 Random Glucose 117 mg/dL (65-105) H D 09/26/18 07:30 Hemoglobin A1c 15.0 % (4.2-6.5) H 09/20/18 21:32 Calcium 9.0 mg/dl (8.6-10.4) 09/26/18 07:30 Phosphorus 4.6 mg/dL (2.5-4.5) H 09/26/18 07:30 Magnesium 1.7 mg/dL (1.6-2.3) 09/26/18 07:30 Total Bilirubin 0.5 mg/dL (0.2-1.3) 09/26/18 07:30 AST 86 U/L (14-36) H 09/26/18 07:30 ALT 77 U/L (9-52) H 09/26/18 07:30 Alkaline Phosphatase 88 U/L (38-126) 09/26/18 07:30 C-Reactive Protein < 5.00 mg/L (0.0-9.9) 09/24/18 07:40 Total Protein 6.8 g/dL (6.3-8.3) 09/26/18 07:30 Albumin 3.3 g/dL (3.5-5.0) L 09/26/18 07:30 Globulin 3.5 gm/dL (2.2-3.9) 09/26/18 07:30 Albumin/Globulin Ratio 0.9 (1.0-2.1) L 09/26/18 07:30 Triglycerides 228 mg/dL (0-149) H D 09/21/18 07:06 Cholesterol 241 mg/dL (0-199) H 09/21/18 07:06 LDL Cholesterol Direct 141 mg/dL (0-129) H 09/21/18 07:06 HDL Cholesterol 40 mg/dL (30-70) 09/21/18 07:06 TSH 3rd Generation 3.39 mIU/L (0.46-4.68) 09/21/18 07:06 Venous Blood Potassium 6.8 mmol/L (3.6-5.2) H* 09/20/18 21:32 Vancomycin Trough 6.5 ug/mL (5.0-10.0) 09/25/18 08:52 B-Hydroxybutyrate 0.18 mM (0.02-0.27) 09/20/18 21:32 - Hospital Course Hospital Course: HPI at time of admission: "53F PMHx of uncontrolled Diabetes, HTN, Hypercholesterolemia, asthma, gastritis, migraines presents with a 6 month history of a worsening ventral ulcer on her big toe, L foot. She says it stated as a scratch and gradually got deeper and wider. Pt noticed it began to discolor dark about a week ago. Reports no pain at this time in the area, she's mainly concerned because it causes her balance issues. Pt says she is still able to feel and discriminate touch/motion in her toes and feet. Pt does not control her Diabetes well, does not check her blood sugars, does not eat appropriate diet, does not take any prescribed medications consistently. lost job and also health insurance so she has been without a PMD for 2 years or so. Was previously with PMD Dr Espinosa. Pt says he had originally put her on metformin 850 but then switched her to januvia because of adverse effects. ROS: Pos+ med non compliance, L big toe ulcer, poor diet, increased thirst and urination Neg- CP, SOB, FC, NV, bleeding from wound, new ulcers, numbness/tingling." Hospital Course: Pertinent imaging: Left lower extremity CT 09/20/18: shows area of edema possible phlegmon vs abscess. no obvious signs of osteomyeltis. chronic changes s/p amputations. MRI 09/21/18 demonstrates osteomyelitis. Pt presented on admission with uncontrolled blood sugars and non-healing L toe ulceration. Wound care, Podiatry (Dr. Gallagher) and ID (Dr. Woo) were consulted for management. Insulin regimen was adjusted while inpatient and fingersticks improved and stabilized. Per recs of Podiatry, pt did not need acute surgical intervention for L toe ulceration. ID recommended antibiotics for 6-8 weeks of therapy, recommended pt continue on d/c Rocephin 2 g daily IVPB at outpatient infusion center at [facility] for total of additional 35 days of therapy, this was set up with Case Management and pt was given appt to start infusion therapy after d/c on 09/27/18. Also given script for weekly CBC, CMP and ESR. PICC line was placed prior to d/c, which pt tolerated well. Pt to have PICC line removed after final infusion treatment. Pt was extensively counseled on importance of controlling blood sugars and remaining compliant with insulin therapy, was provided all prescriptions and insulin supplies prior to d/c. Pt was d/c to home in stable condition on 09/26/18, with instructions to follow up with Dr. Jackman ([facility]) within 2-3 days of discharge, and to obtain referral for Podiatry to be seen in clinic for chronic care of ulcers. This is a summary of the hospital course. For further details, please refer to the hospital EMR. Discharge Exam - Head Exam Head Exam: ATRAUMATIC, NORMOCEPHALIC - Eye Exam Eye Exam: EOMI, Normal appearance, PERRL Pupil Exam: NORMAL ACCOMODATION, PERRL - ENT Exam ENT Exam: Mucous Membranes Moist - Respiratory Exam Respiratory Exam: Clear to PA & Lateral, NORMAL BREATHING PATTERN, UNREMARKABLE - Cardiovascular Exam Cardiovascular Exam: REGULAR RHYTHM, +S1, +S2 - GI/Abdominal Exam GI & Abdominal Exam: Normal Bowel Sounds, Soft, Unremarkable. absent: Distended, Tenderness - Extremities Exam Extremities exam: normal capillary refill, pedal edema (1+ pedal edema on L foot, chronic), pedal pulses present - Neurological Exam Neurological exam: Alert, CN II-XII Intact, Oriented x3 - Skin Skin Exam: Dry, Intact, Warm Discharge Plan - Discharge Medications Prescriptions: Aspirin [Aspirin Chewable] 81 mg PO DAILY #30 chew Insulin Human (NPH)/Regular [Novolin 70/30 (70/30 units/ml) 10 ml] 45 units SC ACB #30 vial Insulin Human (NPH)/Regular [Novolin 70/30 (70/30 units/ml) 10 ml] 23 units SC Q24H #30 vial Lactobacillus Acidophilus [Lactobacillus] 1 cap PO Q12H #60 cap Lisinopril [Zestril] 5 mg PO DAILY #30 tab Pantoprazole [Protonix EC Tab] 40 mg PO DAILY #30 ect Rosuvastatin Calcium [Crestor] 5 mg PO HS #30 tab - Follow Up Plan Condition: GOOD Disposition: HOME/ ROUTINE Instructions: Diabetes Diet , Diabetes and Infections, How to Keep Track of Your Blood Sugar Additional Instructions: Please follow-up with [facility] (Dr. Jackman) within 2-3 days of hospital discharge. Please call clinic at [phone] to make an appointment for hospital discharge follow-up. Please follow-up with Podiatry (Dr. Gallagher) in the office within 1 week of hospital discharge. You will be given prescriptions for all your home medications. Please take medications as prescribed. Please report to [facility] tomorrow 09/27/18 to the infusion center for your daily IV antibiotic therapy (Rocephin). The infusion center opens at 8:00 am. You must report daily for a total of 35 days of treatment. You will also have weekly labs to monitor your electrolytes, kidney and liver function while on this antibiotic. Please check your fingersticks before and after meals. It is essential you stay on top of this in order to help control your blood sugars better for your Diabe dallin. Please keep area of Diabetic foot ulcer clean, dry, and intact, to help promote healing. Should your symptoms worsen, please call your primary care physician or report to your nearest emergency department. Referrals: Sage Gallagher DPM [Staff Provider] - Felisha Jackman MD [Staff Provider] -
== END 2018-09-26 18:22 | disposition home or self-care (01) | DRG 344 ==
LOC: C.ER 21:02 → C.9E 23:13 → C.3T 09-21 00:35
PROVIDERS: ADMIT Hospitalist; ATTEND Hospitalist
PROC: 02HV33Z Insertion of Infusion Device into Superior Vena Cava, Percutaneous Approach (ICD-10-PCS; principal; 2018-09-25)
DX: E11.69 Type 2 diabetes mellitus with other specified complication (principal); M86.9 Osteomyelitis, unspecified; E11.51 Type 2 diabetes mellitus with diabetic peripheral angiopathy without gangrene; E11.621 Type 2 diabetes mellitus with foot ulcer; E11.65 Type 2 diabetes mellitus with hyperglycemia; L97.529 Non-pressure chronic ulcer of other part of left foot with unspecified severity; Z79.4 Long term (current) use of insulin; Z91.14 Patient's other noncompliance with medication regimen; I10 Essential (primary) hypertension; E78.00 Pure hypercholesterolemia, unspecified; G43.909 Migraine, unspecified, not intractable, without status migrainosus; I25.10 Atherosclerotic heart disease of native coronary artery without angina pectoris; J44.9 Chronic obstructive pulmonary disease, unspecified; L02.612 Cutaneous abscess of left foot